=== PATIENT | male | born 2000 | race Caucasian/White ===

== ENCOUNTER 2024-04-20 00:36 | Inpatient (IN) | payer OTHER, SELFPAY ==
--- NOTE | 2024-04-20 | ECG_ITS ---
Test Reason : QTC prolongation Blood Pressure : / mmHG Vent. Rate : 089 BPM Atrial Rate : 089 BPM P-R Int : 154 ms QRS Dur : 094 ms QT Int : 372 ms P-R-T Axes : 040 -12 004 degrees QTc Int : 452 ms Normal sinus rhythm Normal ECG No previous ECGs available Referred By: Michell Salazar Electronically Signed By:Guanakito Mares
[2024-04-20] MEDS: traZODone HCL 50 MG TABLET 150 MG PO (03:26)
[2024-04-20 03:44] VITALS: BP 130/82; PULSE 82; RESP 18; TEMP 37; O2SAT 97; BMI 54.9
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
[2024-04-20 08:50] VITALS: BP 121/65; PULSE 70; RESP 20; TEMP 36.9; O2SAT 98
[2024-04-20] MEDS: Fluticasone Propionate 100 MCG BLST.W.DEV 1 PUFF INHALE (08:50)
[2024-04-20] MEDS: Dextroamphetamine/Amphetamine XR 10 MG CAP.ER.24H 30 MG PO (08:51)
[2024-04-20] MEDS: chlorproMAZINE HCl 25 MG TABLET 75 MG PO (08:52)
[2024-04-20] MEDS: Gabapentin 400 MG CAPSULE 800 MG PO ×3 (08:53→21:45)
[2024-04-20] MEDS: Docusate Sodium 100 MG CAPSULE PO ×2 (08:53→21:45)
[2024-04-20] MEDS: Aspirin 81 MG TAB.CHEW PO (08:54)
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
[2024-04-20 09:43] LABS: Estimated Average Glucose 103 mg/dL; Hemoglobin A1C 125.8236 umol/L; Hemoglobin A1c % 5.2 % (<6.0)
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
[2024-04-20 20:00] VITALS: BP 126/66; PULSE 71; RESP 18; TEMP 36.9; O2SAT 99
[2024-04-20] MEDS: Acetaminophen 325 MG TABLET 650 MG PO (23:38)
--- NOTE | 2024-04-20 23:53 | PC.NURSE ---
Pt refuses hs Thorazine and feels it may have been too sedating. Pt also refused trazodone 150mg tonight as she felt that could have been too sedating last night. She is trying to figure out which was contributing to her inability to stay awake today.
[2024-04-21 07:39] VITALS: BP 106/46; PULSE 69; RESP 18; TEMP 36.7; O2SAT 98
[2024-04-21] MEDS: Gabapentin 400 MG CAPSULE 800 MG PO ×3 (08:36→21:27)
[2024-04-21] MEDS: Docusate Sodium 100 MG CAPSULE PO ×2 (08:36→21:28)
[2024-04-21] MEDS: Aspirin 81 MG TAB.CHEW PO (08:37)
[2024-04-21] MEDS: Dextroamphetamine/Amphetamine XR 10 MG CAP.ER.24H 30 MG PO (08:37)
[2024-04-21 08:42] VITALS: BP 132/86; PULSE 72; O2SAT 95
[2024-04-21 09:06] LABS: MANUAL DIFF FLAG NO
[2024-04-21] MEDS: Albuterol Sulfate 90 MCG 8 GM INHALER 2 PUFF INHALE (09:10)
[2024-04-21 09:12] LABS: Basophils Percent Auto 0.3 % (0-2); Eosinophils Absolute Auto 0.3 X10*3/uL (0.0-0.4); Eosinophils Percent Auto 2.9 % (0-4); Hematocrit 42.2 % (42.0-52.0); Hemoglobin 14.4 g/dl (14.0-18.0); Imm Gran Abs Auto 0.04 X10*3/uL (0.00-0.03); Imm Gran Pct Auto 0.5 % (0.0-0.4); Lymphocytes Absolute Auto 2.5 X10*3/uL (1.2-4.9); Lymphocytes Percent Auto 28.5 % (20-40); Mean Corpuscular HGB Conc 34.1 g/dl (31.0-36.0); Mean Corpuscular Hemoglobin 29.5 pg (27.0-33.0); Mean Corpuscular Volume 86.5 fL (80.0-98.0); Mean Platelet Volume 9.1 fL (9.4-12.4); Monocytes Absolute Auto 0.6 X10*3/uL (0.1-1.2); Monocytes Percent Auto 6.3 % (2-11); Neutrophils Absolute Auto 5.4 x10*3/uL (2.0-8.3); Neutrophils Percent Auto 61.5 % (45-73); Platelet Count 292 X10*3/uL (160-400); Red Blood Count 4.88 X10*6/uL (4.60-5.80); Red Cell Distribution Width 12.7 % (11.0-16.0); White Blood Count 8.7 X10*3/uL (4.8-10.8)
[2024-04-21 09:31] LABS: Alanine Aminotransferase 32 U/L (0-40); Albumin Level 3.5 g/dL (3.5-5.0); Alkaline Phosphatase 51 U/L (39-117); Anion Gap 11 (12-20); Aspartate Amino Transferase 18 U/L (5-37); Bilirubin Direct < 0.2 mg/dL (0.0-0.5); Bilirubin Total 0.2 mg/dL (0.0-1.0); Blood Urea Nitrogen 11 mg/dL (9-16); Calcium 8.7 mg/dL (8.4-10.2); Carbon Dioxide 24 mmol/L (22-29); Chloride 105 mmol/L (96-108); Cholesterol 146 mg/dL (<200); Creatinine Clr Calc Pharmacy 271.1; Estimated Glomerular Filt Rate > 60; Glucose Fasting 152 mg/dL (60-99); HDL Cholesterol 36 mg/dL (>40); LDL Cholesterol Calculated 93 mg/dL (<100); Magnesium 1.8 mg/dL (1.6-2.6); Potassium 4.1 mmol/L (3.3-5.1); Sodium 136 mmol/L (135-145); Triglycerides 85 mg/dL (<150)
[2024-04-21 09:46] LABS: Free T4 (Free Thyroxine) 0.94 ng/dL (0.71-1.85); Thyroid Stimulating Hormone 1.98 uIU/mL (0.32-4.0)
[2024-04-21 11:15] LABS: Folate 5.8 ng/mL (> or = 4.0); Vitamin B12 527 pg/mL (200-900)
[2024-04-21] MEDS: Cariprazine HCl 1.5 MG CAPSULE PO (13:11)
--- NOTE | 2024-04-21 15:56 | P.PNPSI_ITS ---
Subjective Subjective Date of Service: 04/21/24 Reason For Visit: Adj disorder, w/mixed anxiety and depressed mood. Interim History: Met with patient. Says her mood is lousy . She was seen in her room doing art and writing rap songs about my trauma and real life not girls and gangs. She says she did best when It's sad but I did the best when I was at [facility] and [facility]. She was there age 20. After that she discharged against recommendations. Last year was very difficult with the of her child, her child's baby momoriana , her mother and those anniversaries are very difficult for her. She went to [facility] for 6 months August 2023 to December 2023. Since then has tried suicide multiple times. She reports she was sedated yesterday and doesn't want Thorazine because it's too sedating. We agreed to at least have it as PRN. Discussed Vraylar. Reports extensive medication trials. Review of Systems Review of Systems Patient has no acute medical complaints at this time Mental Status Exam Mental Status Exam Patient Appearance: Fatigued, Appropriate and Unkempt Level of Consciousness: Awake, Drowsy and Lethargic Patient Behavior: Guarded, Passive, Avoidant and Poor Eye Contact Mood Description: Calm, Apathetic and Depressed Affect Description: Depressed Patient Cognition Impaired: No Ability to Follow Directions: Fair Speech Pattern: Clear Memory Description: Intact Thought Content: positive for Intact and positive for Preoccupation Judgement: Fair Diagnostics Vital Signs (24Hr): Vital Signs - 24 hr 04/20/24 20:00 04/21/24 07:39 04/21/24 08:42 Temperature 98.4 F 98.1 F Pulse Rate 71 69 72 Respiratory Rate 18 18 Blood Pressure 126/66 106/46 L 132/86 Pulse Oximetry 99 98 95 Oxygen Delivery Method Room Air Room Air Room Air BMI result Body Mass Index 54.9 Labs 04/21/24 08:52 04/21/24 08:52 Labs: Laboratory Results - last 48 hr 04/20/24 04/21/24 08:46 08:52 WBC 8.7 RBC 4.88 Hgb 14.4 Hct 42.2 MCV 86.5 MCH 29.5 MCHC 34.1 RDW 12.7 Plt Count 292 MPV 9.1 L Immature Gran % (Auto) 0.5 H Neut % (Auto) 61.5 Lymph % (Auto) 28.5 [place] % (Auto) 6.3 Eos % (Auto) 2.9 Baso % (Auto) 0.3 Lymph # (Auto) 2.5 [place] # (Auto) 0.6 Eos # (Auto) 0.3 Baso # (Auto) 0.0 Abs Immat Gran (auto) 0.04 H Absolute Neuts (auto) 5.4 Absolute Nucleated RBC 0.000 Nucleated RBC % (auto) 0.0 Sodium 136 Potassium 4.1 Chloride 105 Carbon Dioxide 24 Anion Gap 11 L BUN 11 Creatinine 0.67 Estim Creat Clear Calc 271.1 Estimated GFR > 60 Fasting Glucose 152 H Estimat Average Glucose 103 Hemoglobin A1c % 5.2 Calcium 8.7 Magnesium 1.8 Total Bilirubin 0.2 Direct Bilirubin < 0.2 AST 18 ALT 32 Alkaline Phosphatase 51 Total Protein 7.0 Albumin 3.5 Triglycerides 85 Cholesterol 146 LDL Cholesterol, Calc 93 HDL Cholesterol 36 L Vitamin B12 527 Folate 5.8 TSH 1.98 Free T4 0.94 Medications Medications Current Medications Acetaminophen (Acetaminophen 325 Mg Tablet) 650 mg PO Q6H PRN PRN Reason: Headache/Pain Mild Scale (1-3) Last Admin: 04/20/24 23:38 Dose: 650 mg Al Hydroxide/Mg Hydroxide (Magnesium Hydrox/Alum Hydrox 30 Ml Oral.Susp) 30 ml PO Q6H PRN PRN Reason: Heartburn/Nausea Albuterol Sulfate (Albuterol Sulfate 90 Mcg 8 Gm Inhaler) 2 puff INHALE RQ6H PRN PRN Reason: Wheezing Last Admin: 04/21/24 09:10 Dose: 2 puff Amphetamine/Dextroamphetamine (Dextroamphetamine/Amphetamine Xr 10 Mg Cap.Er.24h) 30 mg PO DAILY [facility] Last Admin: 04/21/24 08:37 Dose: 30 mg Aspirin (Aspirin 81 Mg Tab.Chew) 81 mg PO DAILY [facility] Last Admin: 04/21/24 08:37 Dose: 81 mg Buprenorphine/Naloxone (Buprenorphine/Naloxone 8/2 Mg Film) 2 film SUBLINGUAL DAILY [facility] Last Admin: 04/21/24 08:38 Dose: Not Given Cariprazine (Cariprazine Hcl 1.5 Mg Capsule) 1.5 mg PO DAILY [facility] Last Admin: 04/21/24 13:11 Dose: 1.5 mg Chlorpromazine HCl (Chlorpromazine Hcl 25 Mg Tablet) 75 mg PO TID PRN PRN Reason: agitation Docusate Sodium (Docusate Sodium 100 Mg Capsule) 100 mg PO BID [facility] Last Admin: 04/21/24 08:36 Dose: 100 mg Fluticasone Propionate (Fluticasone Propionate 100 Mcg Blst.W.Dev) 1 puff INHALE DAILY [facility] Last Admin: 04/21/24 08:39 Dose: Not Given Gabapentin (Gabapentin 400 Mg Capsule) 800 mg PO TID [facility] Last Admin: 04/21/24 15:09 Dose: 800 mg Hydroxyzine HCl (Hydroxyzine Hcl 25 Mg Tablet) 25 mg PO Q6H PRN PRN Reason: Anxiety Magnesium Hydroxide (Milk Of Magnesia 30 Ml Oral.Susp) 30 ml PO DAILY PRN PRN Reason: Constipation Nicotine Polacrilex (Nicotine Polacrilex Lozenge 2 Mg Lozenge) 2 mg BUCCAL Q2H PRN PRN Reason: Nicotine Cravings Trazodone HCl (Trazodone Hcl 50 Mg Tablet) 150 mg PO BEDTIME MRX1 PRN PRN Reason: Insomnia Allergies Allergies Allergy/AdvReac Type Severity Reaction Status Date / Time No Known Allergies Allergy Verified 04/20/24 00:55 Assessment & Plan Assessment & Plan (1) PTSD (post-traumatic stress disorder): Status: Acute Code(s): F43.10 - Post-traumatic stress disorder, unspecified (2) Depression, major, severe recurrence: Status: Acute Code(s): F33.2 - Major depressive disorder, recurrent severe without psychotic features (3) Borderline personality disorder: Status: Acute Code(s): F60.3 - Borderline personality disorder (4) [id number]-[id number] transgender person: Status: Acute Code(s): Z78.9 - Other specified health status Plan - Admit to inpatient psychiatry - CV - Collateral information from family and providers. - Milieu treatment and group therapy. - Medications: Continue OP medications. - Social work evaluation. - Disposition planning. 04/21: Hold Suboxone and make Thorazine PRN agitation.Start Vraylar 1.5 mg daily. Reason for continued inpatient stay Substantial Risk for: harm to self and rapid decompensation Time Spent With Patient Time: Total time managing care of this patient today ____ minutes.
[2024-04-21 20:00] VITALS: BP 127/90; PULSE 97; RESP 16; TEMP 36.8; O2SAT 98
[2024-04-21] MEDS: Melatonin 3 MG TABLET 6 MG PO (21:26)
[2024-04-21] MEDS: hydrOXYzine HCL 25 MG TABLET PO (21:28)
[2024-04-22 08:00] VITALS: BP 133/71; PULSE 75; RESP 14; TEMP 36.6; O2SAT 98
[2024-04-22] MEDS: Aspirin 81 MG TAB.CHEW PO (08:24)
[2024-04-22] MEDS: Gabapentin 400 MG CAPSULE 800 MG PO ×3 (08:25→20:48)
[2024-04-22] MEDS: Cariprazine HCl 1.5 MG CAPSULE PO (08:25)
[2024-04-22] MEDS: Dextroamphetamine/Amphetamine XR 10 MG CAP.ER.24H 30 MG PO (08:26)
[2024-04-22] MEDS: Docusate Sodium 100 MG CAPSULE PO ×2 (08:26→20:49)
--- NOTE | 2024-04-22 10:49 | P.PNPSI_ITS ---
Subjective Subjective Date of Service: 04/22/24 Reason For Visit: Adj disorder, w/mixed anxiety and depressed mood. Interim History: Met with patient. Says her mood is irritated . She was doing art in the common area and appeared irritable. She had had urinary incontinence overnight which is a chronic problem. She is pessimistic about the Vraylar working to help her mood. She denies active SI. She draws well. From 04/21/24: She was seen in her room doing art and writing rap songs about my trauma and real life not girls and gangs. She says she did best when It's sad but I did the best when I was at [facility]. She was there age 20. After that she discharged against recommendations. Last year was very difficult with the of her child, her child's baby momoriana , her mother and those anniversaries are very difficult for her. She went to custodial for 6 months August 2023 to December 2023. Since then has tried suicide multiple times. She reports she was sedated yesterday and doesn't want Thorazine because it's too sedating. We agreed to at least have it as PRN. Discussed Vraylar. Reports extensive medication trials Medication Compliance: Yes Review of Systems Review of Systems Patient has no acute medical complaints at this time Mental Status Exam Mental Status Exam Patient Appearance: Fatigued, Appropriate and Unkempt Level of Consciousness: Awake, Drowsy and Lethargic Patient Behavior: Guarded, Passive, Avoidant and Poor Eye Contact Mood Description: Calm, Apathetic and Depressed Affect Description: Depressed Patient Cognition Impaired: No Ability to Follow Directions: Fair Speech Pattern: Clear Memory Description: Intact Diagnostics Vital Signs (24Hr): Vital Signs - 24 hr 04/21/24 20:00 04/22/24 08:00 Temperature 98.3 F 97.9 F Pulse Rate 97 75 Respiratory Rate 16 14 Blood Pressure 127/90 H 133/71 Pulse Oximetry 98 98 Oxygen Delivery Method Room Air Room Air BMI result Body Mass Index 54.9 Labs 04/21/24 08:52 04/21/24 08:52 Labs: Laboratory Results - last 48 hr 04/21/24 08:52 WBC 8.7 RBC 4.88 Hgb 14.4 Hct 42.2 MCV 86.5 MCH 29.5 MCHC 34.1 RDW 12.7 Plt Count 292 MPV 9.1 L Immature Gran % (Auto) 0.5 H Neut % (Auto) 61.5 Lymph % (Auto) 28.5 [place] % (Auto) 6.3 Eos % (Auto) 2.9 Baso % (Auto) 0.3 Lymph # (Auto) 2.5 [place] # (Auto) 0.6 Eos # (Auto) 0.3 Baso # (Auto) 0.0 Abs Immat Gran (auto) 0.04 H Absolute Neuts (auto) 5.4 Absolute Nucleated RBC 0.000 Nucleated RBC % (auto) 0.0 Sodium 136 Potassium 4.1 Chloride 105 Carbon Dioxide 24 Anion Gap 11 L BUN 11 Creatinine 0.67 Estim Creat Clear Calc 271.1 Estimated GFR > 60 Fasting Glucose 152 H Calcium 8.7 Magnesium 1.8 Total Bilirubin 0.2 Direct Bilirubin < 0.2 AST 18 ALT 32 Alkaline Phosphatase 51 Total Protein 7.0 Albumin 3.5 Triglycerides 85 Cholesterol 146 LDL Cholesterol, Calc 93 HDL Cholesterol 36 L Vitamin B12 527 Folate 5.8 TSH 1.98 Free T4 0.94 Medications Medications Current Medications Acetaminophen (Acetaminophen 325 Mg Tablet) 650 mg PO Q6H PRN PRN Reason: Headache/Pain Mild Scale (1-3) Last Admin: 04/20/24 23:38 Dose: 650 mg Al Hydroxide/Mg Hydroxide (Magnesium Hydrox/Alum Hydrox 30 Ml Oral.Susp) 30 ml PO Q6H PRN PRN Reason: Heartburn/Nausea Albuterol Sulfate (Albuterol Sulfate 90 Mcg 8 Gm Inhaler) 2 puff INHALE RQ6H PRN PRN Reason: Wheezing Last Admin: 04/21/24 09:10 Dose: 2 puff Amphetamine/Dextroamphetamine (Dextroamphetamine/Amphetamine Xr 10 Mg Cap.Er.24h) 30 mg PO DAILY [facility] Last Admin: 04/22/24 08:26 Dose: 30 mg Aspirin (Aspirin 81 Mg Tab.Chew) 81 mg PO DAILY [facility] Last Admin: 04/22/24 08:24 Dose: 81 mg Buprenorphine/Naloxone (Buprenorphine/Naloxone 8/2 Mg Film) 2 film SUBLINGUAL DAILY [facility] Last Admin: 04/21/24 08:38 Dose: Not Given Cariprazine (Cariprazine Hcl 1.5 Mg Capsule) 1.5 mg PO DAILY [facility] Last Admin: 04/22/24 08:25 Dose: 1.5 mg Chlorpromazine HCl (Chlorpromazine Hcl 25 Mg Tablet) 75 mg PO TID PRN PRN Reason: agitation Docusate Sodium (Docusate Sodium 100 Mg Capsule) 100 mg PO BID [facility] Last Admin: 04/22/24 08:26 Dose: 100 mg Fluticasone Propionate (Fluticasone Propionate 100 Mcg Blst.W.Dev) 1 puff INHALE DAILY [facility] Last Admin: 04/22/24 08:27 Dose: Not Given Gabapentin (Gabapentin 400 Mg Capsule) 800 mg PO TID [facility] Last Admin: 04/22/24 08:25 Dose: 800 mg Hydroxyzine HCl (Hydroxyzine Hcl 25 Mg Tablet) 25 mg PO Q6H PRN PRN Reason: Anxiety Last Admin: 04/21/24 21:28 Dose: 25 mg Magnesium Hydroxide (Milk Of Magnesia 30 Ml Oral.Susp) 30 ml PO DAILY PRN PRN Reason: Constipation Melatonin (Melatonin 3 Mg Tablet) 6 mg PO BEDTIME PRN PRN Reason: Insomnia Last Admin: 04/21/24 21:26 Dose: 6 mg Nicotine Polacrilex (Nicotine Polacrilex Lozenge 2 Mg Lozenge) 2 mg BUCCAL Q2H PRN PRN Reason: Nicotine Cravings Trazodone HCl (Trazodone Hcl 50 Mg Tablet) 150 mg PO BEDTIME MRX1 PRN PRN Reason: Insomnia Allergies Allergies Allergy/AdvReac Type Severity Reaction Status Date / Time No Known Allergies Allergy Verified 04/20/24 00:55 Assessment & Plan Assessment & Plan (1) PTSD (post-traumatic stress disorder): Status: Acute Code(s): F43.10 - Post-traumatic stress disorder, unspecified (2) Depression, major, severe recurrence: Status: Acute Code(s): F33.2 - Major depressive disorder, recurrent severe without psychotic features (3) Borderline personality disorder: Status: Acute Code(s): F60.3 - Borderline personality disorder (4) Uylq-pt-upwbbv transgender person: Status: Acute Code(s): Z78.9 - Other specified health status Plan - Admit to inpatient psychiatry - CV - Collateral information from family and providers. - Milieu treatment and group therapy. - Medications: Continue OP medications. - Social work evaluation. - Disposition planning. 04/21: Hold Suboxone and make Thorazine PRN agitation.Start Vraylar 1.5 mg daily. 04/22: Monitor response to Vraylar. Otherwise continue current management and treatment plan. Reason for continued inpatient stay Substantial Risk for: harm to self, harm to others, inability to function and rapid decompensation Time Spent With Patient Time: Total time managing care of this patient today ____ minutes.
[2024-04-22 19:55] VITALS: BP 138/67; PULSE 97; RESP 16; TEMP 36.9; O2SAT 99
[2024-04-22] MEDS: Melatonin 3 MG TABLET 6 MG PO (20:48)
[2024-04-22] MEDS: hydrOXYzine HCL 25 MG TABLET PO (20:49)
[2024-04-22] MEDS: traZODone HCL 50 MG TABLET PO (20:56)
[2024-04-23] MEDS: Magnesium Hydrox/Alum Hydrox 30 ML ORAL.SUSP PO (01:42)
[2024-04-23 07:20] VITALS: BP 117/56; PULSE 75; RESP 18; TEMP 36.8; O2SAT 95
[2024-04-23] MEDS: Fluticasone Propionate 100 MCG BLST.W.DEV 1 PUFF INHALE (09:45)
[2024-04-23] MEDS: Gabapentin 400 MG CAPSULE 800 MG PO (09:46)
[2024-04-23] MEDS: Docusate Sodium 100 MG CAPSULE PO ×2 (09:46→21:51)
[2024-04-23] MEDS: Dextroamphetamine/Amphetamine XR 10 MG CAP.ER.24H 30 MG PO (09:46)
[2024-04-23] MEDS: Aspirin 81 MG TAB.CHEW PO (09:46)
[2024-04-23] MEDS: Cariprazine HCl 1.5 MG CAPSULE PO (09:46)
[2024-04-23] MEDS: Gabapentin 600 MG TABLET 1200 MG PO (16:16)
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
[2024-04-23 19:45] VITALS: BP 133/67; PULSE 92; RESP 18; TEMP 36.9; O2SAT 97
[2024-04-23] MEDS: Gabapentin 400 MG CAPSULE 1200 MG PO (21:51)
[2024-04-24 07:00] VITALS: BP 117/59; PULSE 87; RESP 24; TEMP 37.1; O2SAT 95
[2024-04-24 08:00] VITALS: BP 117/59; PULSE 87; RESP 24; TEMP 37.1; O2SAT 95
[2024-04-24] MEDS: Fluticasone Propionate 100 MCG BLST.W.DEV 1 PUFF INHALE (08:07)
[2024-04-24] MEDS: Docusate Sodium 100 MG CAPSULE PO ×2 (08:08→20:36)
[2024-04-24] MEDS: Gabapentin 400 MG CAPSULE 1200 MG PO ×3 (08:08→20:35)
[2024-04-24] MEDS: Dextroamphetamine/Amphetamine XR 10 MG CAP.ER.24H 30 MG PO (08:08)
[2024-04-24] MEDS: Aspirin 81 MG TAB.CHEW PO (08:08)
--- NOTE | 2024-04-24 14:39 | P.PNPSI_ITS ---
Subjective Subjective Date of Service: 04/24/24 Reason For Visit: Adj disorder, w/mixed anxiety and depressed mood. Interim History: calm, cooperative. no longer feeling ECT is a good option. asking to come off 1:1, saying night staff overreacted. now [place] [facility]. or resp[facility]. will work with HAYLEY Todd on the case and hoping to go soon. targets of SIS, self-harm, self-sabotage. per staff, on 1:1 for threat to self. Mental Status Exam Mental Status Exam Narrative: obese, adequately dressed and groomed. cooperative. no PMA/PMR. speech nml rate, amount, loudness, tone, latency. thoughts linear and logical without delusions or paranoia. affect constricted, normo-intense, non-labile. mood depressed. +SI, chronic. no HI/AVH expressed. Diagnostics Vital Signs (24Hr): Vital Signs - 24 hr 04/23/24 19:45 04/24/24 07:00 04/24/24 08:00 Temperature 98.5 F 98.8 F 98.8 F Pulse Rate 92 87 87 Respiratory Rate 18 24 H 24 H Blood Pressure 133/67 117/59 L 117/59 L Pulse Oximetry 97 95 95 Oxygen Delivery Method Room Air Room Air Room Air BMI result Body Mass Index 54.9 Labs 04/21/24 08:52 04/21/24 08:52 Medications Medications Current Medications Acetaminophen (Acetaminophen 325 Mg Tablet) 650 mg PO Q6H PRN PRN Reason: Headache/Pain Mild Scale (1-3) Last Admin: 04/20/24 23:38 Dose: 650 mg Al Hydroxide/Mg Hydroxide (Magnesium Hydrox/Alum Hydrox 30 Ml Oral.Susp) 30 ml PO Q6H PRN PRN Reason: Heartburn/Nausea Last Admin: 04/23/24 01:42 Dose: 30 ml Albuterol Sulfate (Albuterol Sulfate 90 Mcg 8 Gm Inhaler) 2 puff INHALE RQ6H PRN PRN Reason: Wheezing Last Admin: 04/21/24 09:10 Dose: 2 puff Amphetamine/Dextroamphetamine (Dextroamphetamine/Amphetamine Xr 10 Mg Cap.Er.24h) 30 mg PO DAILY [facility] Last Admin: 04/24/24 08:08 Dose: 30 mg Aspirin (Aspirin 81 Mg Tab.Chew) 81 mg PO DAILY [facility] Last Admin: 04/24/24 08:08 Dose: 81 mg Docusate Sodium (Docusate Sodium 100 Mg Capsule) 100 mg PO BID [facility] Last Admin: 04/24/24 08:08 Dose: 100 mg Fluticasone Propionate (Fluticasone Propionate 100 Mcg Blst.W.Dev) 1 puff INHALE DAILY [facility] Last Admin: 04/24/24 08:07 Dose: 1 puff Gabapentin (Gabapentin 400 Mg Capsule) 1,200 mg PO TID [facility] Last Admin: 04/24/24 08:08 Dose: 1,200 mg Hydroxyzine HCl (Hydroxyzine Hcl 25 Mg Tablet) 25 mg PO Q6H PRN PRN Reason: Anxiety Last Admin: 04/22/24 20:49 Dose: 25 mg Magnesium Hydroxide (Milk Of Magnesia 30 Ml Oral.Susp) 30 ml PO DAILY PRN PRN Reason: Constipation Melatonin (Melatonin 3 Mg Tablet) 6 mg PO BEDTIME PRN PRN Reason: Insomnia Last Admin: 04/22/24 20:48 Dose: 6 mg Nicotine Polacrilex (Nicotine Polacrilex Lozenge 2 Mg Lozenge) 2 mg BUCCAL Q2H PRN PRN Reason: Nicotine Cravings Trazodone HCl (Trazodone Hcl 50 Mg Tablet) 50 mg PO BEDTIME MRX1 PRN PRN Reason: Insomnia Last Admin: 04/22/24 20:56 Dose: 50 mg Allergies Allergies Allergy/AdvReac Type Severity Reaction Status Date / Time No Known Allergies Allergy Verified 04/20/24 00:55 Assessment & Plan Assessment & Plan (1) PTSD (post-traumatic stress disorder): Status: Acute Code(s): F43.10 - Post-traumatic stress disorder, unspecified (2) Depression, major, severe recurrence: Status: Acute Code(s): F33.2 - Major depressive disorder, recurrent severe without psychotic features (3) Borderline personality disorder: Status: Acute Code(s): F60.3 - Borderline personality disorder (4) Khpn-fr-dgyebd transgender person: Status: Acute Code(s): Z78.9 - Other specified health status Plan - Admit to inpatient psychiatry - CV - Collateral information from family and providers. - Milieu treatment and group therapy. - Medications: Continue OP medications. - Social work evaluation. - Disposition planning. 04/21: Hold Suboxone and make Thorazine PRN agitation.Start Vraylar 1.5 mg daily. 04/22: Monitor response to Vraylar. Otherwise continue current management and treatment plan. 04/23: pt requests D/C of suboxone, thorazine, vraylar, which is done. says meds not effective. however asks for gabapentin to be increased for neuropathic pain, which is agreed to, to 3600 mg daily. asking for ECT trial. will provide list of med trials tomorrow. revoked 3-day notice. 04/24: states in reconsideration that ECT is not helpful for BPD Sx, she declines to pursue. interested in housing, knows this will need to be pursued outpt, [place] [facility] [place]. DC 1:1, change to Q5 min checks. Reason for continued inpatient stay Substantial Risk for: harm to self, inability to function and rapid decompensation Time Spent With Patient Time: Total time managing care of this patient today __25__ minutes.
[2024-04-24 20:05] VITALS: BP 128/63; PULSE 94; RESP 18; TEMP 36.6; O2SAT 98
[2024-04-24] MEDS: traZODone HCL 50 MG TABLET PO (23:09)
[2024-04-24] MEDS: Melatonin 3 MG TABLET 6 MG PO (23:09)
[2024-04-25 07:00] VITALS: BMI 56.1
[2024-04-25 07:34] VITALS: BP 114/59; PULSE 77; RESP 16; TEMP 36.8; O2SAT 98
[2024-04-25] MEDS: Gabapentin 400 MG CAPSULE 1200 MG PO (08:26)
[2024-04-25] MEDS: Docusate Sodium 100 MG CAPSULE PO (08:26)
[2024-04-25] MEDS: Fluticasone Propionate 100 MCG BLST.W.DEV 1 PUFF INHALE (08:26)
[2024-04-25] MEDS: Dextroamphetamine/Amphetamine XR 10 MG CAP.ER.24H 30 MG PO (08:26)
[2024-04-25] MEDS: Aspirin 81 MG TAB.CHEW PO (08:27)
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
== END 2024-04-25 10:30 | disposition home or self-care (01) | DRG 751 ==
PROVIDERS: Clinical Nurse Specialist Psychiatric/Mental Health; Admitting Provider Psychiatry & Neurology Psychiatry; Visit Provider Psychiatry & Neurology Psychiatry
DX: F33.2 Major depressive disorder, recurrent severe without psychotic features (principal); R45.851 Suicidal ideations; F43.10 Post-traumatic stress disorder, unspecified; F60.3 Borderline personality disorder; G47.33 Obstructive sleep apnea (adult) (pediatric); F64.0 Transsexualism; Z59.02 Unsheltered homelessness; Z91.51 Personal history of suicidal behavior; Z87.891 Personal history of nicotine dependence; Z79.899 Other long term (current) drug therapy
CPT/HCPCS: 36415; 80053; 80061; 80076; 82607; 82746; 83036; 83735; 84439; 84443; 85025; 87086; 93005

== ENCOUNTER 2024-04-20 00:36 | Outpatient (BNV) | payer MEDICAID, SELFPAY | END 2024-04-20 10:21 | PROVIDERS: Admitting Provider Psychiatry & Neurology Psychiatry; Visit Provider Internal Medicine Cardiovascular Disease | DX: I45.81 Long QT syndrome (principal) | CPT/HCPCS: 93010 ==

== ENCOUNTER → 2024-04-20 00:36 | Outpatient (BNV) | payer OTHER, SELFPAY | PROVIDERS: Admitting Provider Psychiatry & Neurology Psychiatry; Visit Provider Psychiatry & Neurology Psychiatry | DX: F60.3 Borderline personality disorder (principal); F33.2 Major depressive disorder, recurrent severe without psychotic features; F43.11 Post-traumatic stress disorder, acute; F64.0 Transsexualism | CPT/HCPCS: 99231; 99232 ==

== ENCOUNTER → 2024-04-20 00:36 | Outpatient (BNV) | payer MEDICAID, SELFPAY | PROVIDERS: Admitting Provider Psychiatry & Neurology Psychiatry; Visit Provider Student in an Organized Health Care Education/Training Program | DX: Z00.8 Encounter for other general examination (principal) | CPT/HCPCS: 99222 ==

== ENCOUNTER 2025-04-07 20:44 | Emergency (ER) | payer MEDICAID, SELFPAY ==
[2025-04-07 20:46] VITALS: BP 146/95; PULSE 92; RESP 18; TEMP 36.6; O2SAT 99; BMI 55.4
--- NOTE | 2025-04-07 20:47 | ED.GENADULT ---
HPI - General Adult General Chief complaint: Abdominal Pain Stated complaint: Abdominal pain Related Data Previous Rx's ?Medication ?Instructions ?Recorded albuterol sulfate 90 mcg/actuation 2 puff inhalation Q6H PRN wheezing 04/25/24 aerosol inhaler (Ventolin HFA) 30 days #1 inhaler aspirin 81 mg chewable tablet 1 tab PO DAILY 30 days #30 tabs 04/25/24 dextroamphetamine-amphetamine ER 1 cap PO DAILY 30 days #30 caps 04/25/24 30 mg 24hr capsule,extend release (Adderall XR) docusate sodium 100 mg capsule 100 mg PO BID indigestion 30 days 04/25/24 #60 caps fluticasone propionate 100 1 inh inhalation BID 30 days #1 ea 04/25/24 mcg/actuation blister powder for inhalation gabapentin 400 mg capsule 1,200 mg (3 x 400 mg) PO TID 30 04/25/24 days #270 caps melatonin 3 mg tablet 6 mg (2 x 3 mg) PO BEDTIME PRN 04/25/24 Insomnia 30 days #60 tabs trazodone 50 mg tablet 50 mg PO BEDTIME MRX1 PRN Insomnia 04/25/24 30 days #60 tabs Allergies Allergy/AdvReac Type Severity Reaction Status Date / Time No Known Allergies Allergy Verified 04/07/25 20:47 [facility] Past Medical History Medical History (Updated 04/10/25 @ 11:08 by Miky Schmitz) Medical clearance for psychiatric admission Asthma MIRA (obstructive sleep apnea) Social History Social History Household Members: None Housing: Homeless Do you presently have visiting nurse or other home services: No Patient Tobacco Use Status: Former Tobacco user Years Smoked: 3 e-Cigarette/Vaping Use: Currently Using Second Hand Smoke Exposure: No Advance Directives: No Advance Directives Information Provided: No Do you have a plan to hurt others: No Plan service: No Sexual orientation: Bisexual Physical Exam ED Vital Signs: BMI result Body Mass Index 55.4 Course Course Course Narrative: RME, this is a rapid medical exam performed by Armani Schmitz please refer to primary provider for complete H&P- 24-year-old male who identifies as female presents for evaluation of abdominal pain, nausea and vomiting. Plan for labs, urinalysis. Will defer any potential advanced imaging to primary ER provider Medical Decision Making Lab Data 04/07/25 20:53 04/07/25 20:53 Labs: Lab Results 04/07/25 Range/Units 20:53 WBC 14.2 H (4.8-10.8) X10*3/uL RBC 5.09 (4.60-5.80) X10*6/uL Hgb 14.8 (14.0-18.0) g/dl Hct 43.0 (42.0-52.0) % MCV 84.5 (80.0-98.0) fL MCH 29.1 (27.0-33.0) pg MCHC 34.4 (31.0-36.0) g/dl RDW 13.2 (11.0-16.0) % Plt Count 409 H D (160-400) X10*3/uL MPV 8.5 L (9.4-12.4) fL Immature Gran % (Auto) 0.6 H (0.0-0.4) % Neut % (Auto) 66.4 (45-73) % Lymph % (Auto) 23.2 (20-40) % Kendall % (Auto) 6.6 (2-11) % Eos % (Auto) 2.8 (0-4) % Baso % (Auto) 0.4 (0-2) % Lymph # (Auto) 3.3 (1.2-4.9) X10*3/uL Kendall # (Auto) 0.9 (0.1-1.2) X10*3/uL Eos # (Auto) 0.4 (0.0-0.4) X10*3/uL Baso # (Auto) 0.1 (0.0-0.2) X10*3/uL Abs Immat Gran (auto) 0.08 H (0.00-0.03) X10*3/uL Absolute Neuts (auto) 9.4 H (2.0-8.3) x10*3/uL Absolute Nucleated RBC 0.000 (0.0-0.012) X10*3/uL Nucleated RBC % (auto) 0.0 (0.0-0.2) /100WBC Sodium 136 (135-145) mmol/L Potassium 3.8 (3.3-5.1) mmol/L Chloride 106 (96-108) mmol/L Carbon Dioxide 23 (22-29) mmol/L Anion Gap 11 L (12-20) BUN 14 (9-16) mg/dL Creatinine 0.71 (0.5-1.4) mg/dL Estim Creat Clear Calc 254.9 Estimated GFR > 60 Random Glucose 109 (60-115) mg/dL Calcium 9.1 (8.4-10.2) mg/dL Total Bilirubin 0.3 (0.0-1.0) mg/dL AST 28 (5-37) U/L ALT 39 (0-40) U/L Alkaline Phosphatase 48 (39-117) U/L Total Protein 7.8 (6.5-8.0) g/dL Albumin 3.9 (3.5-5.0) g/dL Lipase 8 (8-78) U/L Influenza Type A (PCR) NEGATIVE (Negative) Influenza Type B (PCR) NEGATIVE (Negative) RSV RNA Qual (PCR) NEGATIVE (Negative) SARS-CoV-2 RNA (RT-PCR) NEGATIVE (Negative) Discharge Plan Discharge Clinical Impression: Abdominal pain Patient Disposition: Left W/O Completing Treatment Prescriptions: No Action trazodone 50 mg Tablet 50 mg PO BEDTIME MRX1 PRN (Reason: Insomnia) 30 Days Qty: 60 0RF gabapentin 400 mg Capsule 1,200 mg PO TID 30 Days Qty: 270 0RF melatonin 3 mg Tablet 6 mg PO BEDTIME PRN (Reason: Insomnia) 30 Days Qty: 60 0RF fluticasone propionate 100 mcg/actuation Blister With Device 1 inh inhalation BID 30 Days Qty: 1 0RF docusate sodium 100 mg capsule 100 mg PO BID 30 Days Qty: 60 0RF aspirin 81 mg tablet,chewable 1 tab PO DAILY 30 Days Qty: 30 0RF albuterol sulfate [Ventolin HFA] 90 mcg/actuation HFA aerosol inhaler 2 puff inhalation Q6H PRN (Reason: wheezing) 30 Days Qty: 1 0RF dextroamphetamine-amphetamine [Adderall XR] 30 mg capsule,extended release 24hr 1 cap PO DAILY 30 Days Qty: 30 0RF Discharge Date/Time: 04/07/25 22:59
[2025-04-07 20:59] LABS: Basophils Absolute Auto 0.1 X10*3/uL (0.0-0.2); Basophils Percent Auto 0.4 % (0-2); Eosinophils Absolute Auto 0.4 X10*3/uL (0.0-0.4); Eosinophils Percent Auto 2.8 % (0-4); Hemoglobin 14.8 g/dl (14.0-18.0); Imm Gran Abs Auto 0.08 X10*3/uL (0.00-0.03); Imm Gran Pct Auto 0.6 % (0.0-0.4); Lymphocytes Absolute Auto 3.3 X10*3/uL (1.2-4.9); Lymphocytes Percent Auto 23.2 % (20-40); MANUAL DIFF FLAG NO; Mean Corpuscular HGB Conc 34.4 g/dl (31.0-36.0); Mean Corpuscular Hemoglobin 29.1 pg (27.0-33.0); Mean Corpuscular Volume 84.5 fL (80.0-98.0); Mean Platelet Volume 8.5 fL (9.4-12.4); Monocytes Absolute Auto 0.9 X10*3/uL (0.1-1.2); Monocytes Percent Auto 6.6 % (2-11); Neutrophils Absolute Auto 9.4 x10*3/uL (2.0-8.3); Neutrophils Percent Auto 66.4 % (45-73); Platelet Count 409 X10*3/uL (160-400); Red Blood Count 5.09 X10*6/uL (4.60-5.80); Red Cell Distribution Width 13.2 % (11.0-16.0); White Blood Count 14.2 X10*3/uL (4.8-10.8)
[2025-04-07 21:16] LABS: Alanine Aminotransferase 39 U/L (0-40); Albumin Level 3.9 g/dL (3.5-5.0); Alkaline Phosphatase 48 U/L (39-117); Anion Gap 11 (12-20); Aspartate Amino Transferase 28 U/L (5-37); Bilirubin Total 0.3 mg/dL (0.0-1.0); Blood Urea Nitrogen 14 mg/dL (9-16); Calcium 9.1 mg/dL (8.4-10.2); Carbon Dioxide 23 mmol/L (22-29); Chloride 106 mmol/L (96-108); Creatinine Clr Calc Pharmacy 254.9; Estimated Glomerular Filt Rate > 60; Glucose Random 109 mg/dL (60-115); Lipase 8 U/L (8-78); Potassium 3.8 mmol/L (3.3-5.1); Sodium 136 mmol/L (135-145); Total Protein 7.8 g/dL (6.5-8.0)
[2025-04-07 21:36] LABS: Influenza A PCR NEGATIVE (Negative); Influenza B PCR NEGATIVE (Negative); Resp Syncy Virus RNA Qual PCR NEGATIVE (Negative); SARS COV2 PCR INHOUSE NEGATIVE (Negative)
--- OUTSIDE RECORDS SUMMARY | 2025-04-07 22:56 | XMS_ITS | Encounter Summary ---
Author Organization [facility] Address [address] [place] [address] Care Team Providers Care Mechanical Unit Repairer Name Role Phone Ed, [facility]-Attn: Primary Care Provider Unavailable Encounter Details Date Type Department Care Team (Late st Contact Info) Description 08/17/2018 Lab Requisition [facility] [address] [place] [address] Rubens Terry MD [address] [place] [address] Encounter for screening for infections with predominantly sexual mode of transmission Social History Tobacco Use Types Packs/Day Years Used Date Smoking Tobacco: Never Smokeless Tobacco: Never Comments:: Alcohol Use Standard Drinks/Week Comments No 0 (1 standard drink = 0.6 oz pur e alcohol) Sex and Gender Information Value Date Recorded Sex Assigned at Male 12/25/2024 11:58 AM EST Legal Sex Unknown 12/25/2024 11:58 AM EST Gender Identity Not on file Sexual Orientation Not on file documented as of this encounter Plan of Treatment Not on file documented as of this encounter Procedures * Due to [place] [employer] law, this organization might not be sharing negative HIV tests. Procedure Name Priority Date/Time Associated Diagnosis Comments CHLAMYDIA/NEISSERI A GONORRHEA RNA Routine 08/17/2018 2:00 PM EDT Encounter for screening for infections with predominantly sexual mode of transmission documented in this encounter Results * Due to [place] [employer] law, this organization might not be sharing negative HIV tests. * Chlamydia/Neisseria gonorrhoeae RNA (08/17/2018 2:00 PM EDT) Chlamydia trachomatis RNA, TMA NOT DETECTED NOT DETECTED 08/18/2018 2:45 PM EDT [facility] Neisseria Gonorrhoeae RNA, TMA NOT DETECTED NOT DETECTED 08/18/2018 2:45 PM EDT [facility] Comment: This test was performed using the APTIMA COMBO2 Assay ([employer] The analytical performance characteristics of this assay, when used to test SurePath specimens have been determined by [employer]. ?? Urine specimen (specimen) Voided urine specimen / Unknown 08/17/2018 2:00 PM EDT 08/17/2018 6:14 PM EDT Narrative JANETT JEREZ - 08/18/2018 2:45 PM EDT [facility] Received Date: us Rubens Terry MD LAB URINE ORDERABLES Final Re sult [facility] [address], [place] [address], [place] [phone] [facility] [address], [place] [address], [place] [phone] documented in this encounter Visit Diagnoses Diagnosis Encounter for screening for infections with predominantly sexual mode of transmission documented in this encounter Additional Health Concerns Infection Onset Date Last Indicated Resolved Time COVID-19 - Suspected infection 12/28/2020 01/05/2021 01/05/2021 7:47 PM EST COVID-19 - Suspected infection 08/20/2023 08/20/2023 08/20/2023 3:46 PM EDT COVID-19 - Suspected infection 08/20/2023 08/20/2023 08/21/2023 12:02 AM EDT documented as of this encounter Care Teams Mechanical Unit Repairer Relationship Specialty Start Date End Date Ed, [facility]-Attn: PCP - General 12/25/24 documented as of this encounter
--- OUTSIDE RECORDS SUMMARY | 2025-04-07 22:57 | XMS_ITS | Clinical Summary ---
Author Organization [facility] Address [address] [place] [address] Phone Care Team Providers Care Weight Tester Name Role Phone JaimesRoxana jayrandolph Talbert DO Primary Care Provider [phone] Allergies No known active allergies Medications docusate sodium (COLACE) 100 MG capsule Take 100 mg by mouth 2 (two) times a day. 03/15/2024 Active fluticasone furoate (ARNUITY ELLIPTA) 100 mcg/actuation DsDv Inhale 1 puff into the lungs 2 (two) times a day as needed. 03/28/2024 Active ADDERALL 20 mg Tab tablet Take 20 mg by mouth 2 (two) times a day. 08/16/2024 Active topiramate (TOPAMAX) 25 MG tablet Take 25 mg by mouth 2 (two) times a day. 08/06/2024 08/06/20 Active gabapentin (NEURONTIN) 600 MG tablet Take 1,200 mg by mouth 3 (three) times a day. Active hydrOXYzine (ATARAX) 25 MG tablet Take 25 mg by mouth 3 (three) times a day as needed for itching. Active albuterol 90 mcg/actuation inhaler Inhale 2 puffs into the lungs every 6 (six) hours as needed for wheezing. Active ibuprofen (ADVIL,MOTRIN) 600 MG tablet Take 600 mg by mouth every 6 (six) hours as needed for pain (specific location in comments). Active dextroamphetami ne-amphetamine (ADDERALL XR) 30 MG 24 hr capsule Take 30 mg by mouth daily. Active QUEtiapine (SEROQUEL XR) 50 mg Tb24 Take 100 mg by mouth nightly at bedtime. Active QUEtiapine (SEROQUEL) 50 MG tablet Take 50 mg by mouth 2 (two) times a day as needed. Active FLUoxetine (PROZAC) 20 MG capsule Take 20 mg by mouth daily. Active ARIPiprazole (ABILIFY) 5 MG tablet Take 5 mg by mouth daily. Active Active Problems Problem Noted Date Diagnosed Date Mental health problem 08/23/2024 Suicidal ideation 04/19/2024 Encounters Date Type Department Care Team Description 01/18/2025 5:52 PM EST - 01/19/2025 9:30 AM EST Emergency [facility] [address] [place] [address] Shannan Girard MD Steinberg, MD Km Gamez, Matteo Soriano MD Discharge Disposition: Home or Self Care 01/14/2025 9:30 PM EST - 01/15/2025 4:41 PM EST Hospital Encounter [facility] [address] [place] [address] Yeni Jarrell MD Noone, Caleb J, MD Fishman, Kane Lan MD Discharge Disposition: [facility] from Last 3 Months Social History Tobacco Use Types Packs/Day Years Used Date Smoking Tobacco: Every Day Cigarettes Passive Smoke Exposure: Never Smokeless Tobacco: Never Tobacco Cessation:Ready to Q uit: Not Asked; Counseling Given: Not Answered Alcohol Use Standard Drinks/Week Comments Yes 0 (1 standard drink = 0.6 oz pur e alcohol) 12/01 Gin Education Answer Date Recorded Are you interested in more education? Not on toby e 03/24/2023 Are you concerned about learning? Not on file 03/24/2023 No 03/24/2023 No 03/24/2023 Digital Access Answer Date Recorded No 04/22/2023 No 04/22/2023 Reliable internet access at home? Not on file 04/22/2023 Device with a working camera? Not on file Intimate Partner Violence Answer Date R ecorded Are you denied basic needs s uch as food, clothing, or medical care? No 01/18/2025 In the past 12 months have y ou been in a relationship with a person who hurts, threatens, or tries to control you? No 01/18/2025 Are you denied basic needs s uch as food, clothing, or medical care? No 01/18/2025 In the past 12 months have y ou been in a relationship with a person who hurts, threatens, or tries to control you? No 01/18/2025 Sex and Gender Information Value Date Recorded Sex Assigned at Male 05/20/2023 12:48 PM EDT Legal Sex Male 3:09 PM EST Gender Identity Male 05/20/2023 12:48 PM EDT Sexual Orientation Straight 05/20/2023 12 :48 PM EDT Last Filed Vital Signs Vital Sign Reading Time Taken Comments Blood Pressure 106/69 01/19/2025 8:15 AM EST Pulse 62 01/19/2025 8:15 AM EST Temperature 36.6 ??C (97.9 ??F) 01/19/2025 8:15 AM ES T Respiratory Rate 18 01/19/2025 8:15 AM EST Oxygen Saturation 94% 01/19/2025 8:15 AM EST Inhaled Oxygen Concentration - - Weight 181 kg (399 lb) 01/18/2025 6:30 PM EST Height 175.3 cm (5' 9 ) 01/18/2025 6:30 PM EST Body Mass Index 58.92 01/18/2025 6:30 PM EST Plan of Treatment Health Maintenance Due Date Last Done Comments Adult Td,Tdap Booster 2002 DEPRESSION SCREENING 2014 HPV VACCINES (1 - Male 3-dos e series) 2017 HEPATITIS C SCREENING 2020 HIV ONE-TIME SCREENING (18-6 5 YEARS) 2020 PNEUMOCOCCAL VACCINES (0-49 years) (1 of 2 - PCV) 2021 INFLUENZA VACCINE (#1) 2024 COVID-19 VACCINE (1 - 2023-2 5 season) 2024 SMOKING Hx and SMOKELESS TOB ACCO SCREENING 08/23/2025 08/23/2024 HEPATITIS A VACCINES Aged Out No long er eligible based on patient's age to complete this topic HIB VACCINES Aged Out No longer eligi ble based on patient's age to complete this topic MENINGOCOCCAL VACCINES (ACWY) Aged Out No longer eligible based on patient's age to complete this topic Medical Devices Not on file Procedures Procedure Name Priority Date/Time Associated Diagnosis Comments URINE SEDIMENT STAT 01/18/2025 10:08 PM EST URINALYSIS W/REFLEX URINE CULTURE STAT 01/18/2025 10:08 PM EST TOXICOLOGY SCREEN, URINE STAT 01/18/2025 10:08 PM EST TROPONIN Routine 01/18/2025 8:53 PM EST ETHANOL, BLOOD STAT 01/18/2025 8:53 PM EST LFTS (HEPATIC PANEL) STAT 01/18/2025 8:53 PM EST BASIC METABOLIC PANEL STAT 01/18/2025 8:53 PM EST CBC AND DIFFERENTIAL STAT 01/18/2025 8:53 PM EST ECG 12-LEAD STAT 01/18/2025 7:28 PM EST COVID PANDEMIC RESPIRATORY VIRAL ORDER (PRO) STAT 01/15/2025 1:57 PM EST TOXICOLOGY SCREEN, URINE STAT 01/15/2025 1:55 PM EST SALICYLATES STAT 01/14/2025 10:06 PM EST ACETAMINOPHEN LEVEL STAT 01/14/2025 1 0:06 PM EST ETHANOL, BLOOD STAT 01/14/2025 10:06 PM EST LFTS (HEPATIC PANEL) STAT 01/14/2025 10:06 PM EST BASIC METABOLIC PANEL STAT 01/14/2025 10:06 PM EST CBC AND DIFFERENTIAL STAT 01/14/2025 10:06 PM EST from Last 3 Months Results * (ABNORMAL) Urinalysis w/reflex Urine Culture (01/18/2025 10:08 PM EST) COLOR Yellow Yellow [facility] CLARITY Clear [facility] GLUCOSE Negative Negative [facility] BILI 1+(A) Negative [facility] KETONES 1+(A) Negative [facility] SPECIFIC GRAVITY >1.030 1.005 - 1.030 [facility] BLOOD 3+(A) Negative [facility] PH 5.5 5.0 - 8.0 [facility] Protein-UA Negative Negative [facility] NITRITE Negative Negative [facility] Leukocyte esterase, ur Negative Negative [facility] Urine (Urine) 01/18/2025 10: 08 PM EST 01/18/2025 10:12 PM EST Shannan Girard MD URINE ORDERABLES Final Re sult Performing Organization Address [facility]/ZIP Co de Phone Number [address] [address] * (ABNORMAL) Urine sediment (01/18/2025 10:08 PM EST) WBC 0-4(A) NONE SEEN /hpf [facility] RBC 11-20(A) NONE SEEN /hpf [facility] URINE EPITHELIAL 5-10(A) NONE SEEN [facility] MUCUS 3+(A) NONE SEEN /hpf [facility] BACTERIA Trace(A) NONE SEEN /hpf [facility] CAST 0-2 [facility] Comment:GRANULAR CAST 01/18/2025 10:0 8 PM EST 01/18/2025 10:12 PM EST us Shannan Girard MD URINE ORDERABLES Final Re sult Performing Organization Address City/[facility]/ZIP Co de Phone Number [address] [address] * (ABNORMAL) Toxicology screen, urine (01/18/2025 10:08 PM EST) Only the most recent of2 resultswithin the time period is included. URINE CANNABINOIDS NONE DETECTED NONE DETECTED [facility] Comment:Cutoff: 50 ng/mL URINE COCAINE METAB Positive(A) NONE DETECTED [facility] Comment:Cutoff: 300 ng/mL URINE AMPHETAMINES Positive(A) NONE DETECTED [facility] Comment:Cutoff: 1000 ng/mL URINE METHADONE NONE DETECTED NONE DETECTED [facility] Comment:Cutoff: 300 ng/mL URINE OPIATES NONE DETECTED NONE DETECTED [facility] Comment:Cutoff: 300 ng/mL URINE PHENCYCLIDINE NONE DETECTED NONE DETECTED [facility] Comment:Cutoff: 25 ng/mL URINE OXYCODONE NONE DETECTED NONE DETECTED [facility] Comment:Cutoff: 300 ng/mL URINE BARBITURATES NONE DETECTED NONE DETECTED [facility] Comment:Cutoff: 200 ng/mL URINE BENZODIAZEPINE NONE DETECTED NONE DETECTED [facility] Comment:Cutoff: 200 ng/mL URINE BUPRENORPHINE NONE DETECTED NONE DETECTED [facility] Comment:Cutoff: 5 ng/mL Fentanyl, urine NONE DETECTED NONE DETECTED [facility] Comment: Cutoff: 5 ng/mL INTERPRETATION FOR TOXICOLOGY PANEL: These results are unconfirmed and should be used for Medical Treatment purposes only. Urine (Urine) 01/18/2025 10: 08 PM EST 01/18/2025 10:13 PM EST us Shannan Girard MD URINE ORDERABLES Final Re sult Performing Organization Address City/[facility]/ZIP Co de Phone Number [address] [address] * Ethanol, blood (01/18/2025 8:53 PM EST) Only the most recent of2 resultswithin the time period is included. ETHANOL <10 <10 mg/dL [facility] Blood 01/18/2025 8:53 PM EST 01/18/2025 8:58 PM EST us Shannan Girard MD LAB BLOOD ORDERABLES Silvia l Result Performing Organization Address City/[facility] Co de Phone Number [address] [address] * (ABNORMAL) LFTs (hepatic panel) (01/18/2025 8:53 PM EST) Only the most recent of2 resultswithin the time period is included. ALKALINE PHOSPHATASE 64 39 - 117 U/L [facility] TOTAL BILIRUBIN 0.4 0.0 - 1.2 mg/dL [facility] DIRECT BILIRUBIN 0.2 0.0 - 0.2 mg/dL [facility] Bilirubin (Indirect) 0.2 0 - 1.5 mg/dL [facility] AST 42(H) 0 - 37 U/L [facility] ALT 50(H) 0 - 40 U/L [facility] TOTAL PROTEIN 7.8 6.5 - 8.0 g/dL [facility] ALBUMIN 3.8(L) 3.9 - 4.8 g/dL [facility] GLOBULIN 4.0 1 - 4.8 g/dL [facility] A/G Ratio 0.95(L) 1.00 - 4.80 RATIO [facility] Blood 01/18/2025 8:53 PM EST 01/18/2025 8:58 PM EST us Shannan Girard MD LAB BLOOD ORDERABLES Slivia krause Result [facility] [address] [place] [address] * (ABNORMAL) CBC and differential (01/18/2025 8:53 PM EST) Only the most recent of2 resultswithin the time period is included. WBC 14.43(H) 4.00 - 11.00 K/uL [facility] RBC 4.93 4.50 - 5.90 M/uL [facility] HGB 14.6 13.5 - 17.5 g/dL [facility] HCT 42.0 41.0 - 53.0 % [facility] PLT 368 150 - 450 K/uL [facility] MCV 85.2 80.0 - 100.0 fL [facility] MCH 29.6 27.0 - 31.0 pg [facility] MCHC 34.8 32.0 - 36.0 g/dL [facility] RDW 13.2 11.5 - 14.5 % [facility] MPV 8.6 8.4 - 12.0 fL [facility] NRBC 0.00 0.00 /100 WBCs [facility] ABSOLUTE NRBC 0.00 0.00 K/uL [facility] DIFF METHOD Auto [facility] NEUTS 58.0 48.0 - 76.0 % [facility] LYMPHS 30.9 18.0 - 41.0 % [facility] Comment: Moderate Atypical Lymphs MONOS 7.7 4.0 - 11.0 % [facility] EOS 2.5 0.0 - 5.0 % [facility] BASOS 0.4 0.0 - 1.5 % [facility] Granulocytes, immature (%) 0.5 0.0 - 0.9 % [facility] ABSOLUTE NEUTS 8.37(H) 1.92 - 7.60 K/uL [facility] ABSOLUTE LYMPHS 4.46(H) 0.72 - 4.10 K/uL [facility] ABSOLUTE MONOS 1.11(H) 0.16 - 1.10 K/uL [facility] ABSOLUTE EOS 0.36 0.00 - 0.50 K/uL [facility] ABSOLUTE BASOS 0.06 0.00 - 0.15 K/uL [facility] Granulocytes, immature 0.07 0.00 - 0.09 K/uL [facility] Blood 01/18/2025 8:53 PM EST 01/18/2025 8:58 PM EST us Shannan Girard MD LAB BLOOD ORDERABLES Silvia l Result Performing Organization Address City/[facility]/ZIP Co de Phone Number [address] [address] * Troponin (01/18/2025 8:53 PM EST) Troponin-T, HS Gen5 <6 0 - 14 ng/L [facility] 01/18/2025 8:53 PM EST 01/18/2025 8:58 PM EST us Shannan Girard MD LAB BLOOD ORDERABLES Silvia l Result [address] [address] * Basic metabolic panel (01/18/2025 8:53 PM EST) Only the most recent of2 resultswithin the time period is included. Pathologist [facility] SODIUM 140 133 - 146 mmol/L [facility] CHLORIDE 102 96 - 108 mmol/L [facility] POTASSIUM 3.6 3.3 - 5.1 mmol/L [facility] CO2 22 21 - 35 mmol/L [facility] BUN 14 6 - 19 mg/dL [facility] CREATININE 0.70 0.5 - 1.5 mg/dL [facility] GLUCOSE 90 70 - 99 mg/dL [facility] CALCIUM 8.9 8.4 - 10.3 mg/dL [facility] EGFR >120 >59 mL/min/1.7 3m2 [facility] Comment:Estimated glomerular filtration rate calculated using the CKD-EPI refit equation. ANION GAP 20 10 - 20 mmol/L [facility] Blood 01/18/2025 8:53 PM EST 01/18/2025 8:58 PM EST us Shannan Girard MD LAB BLOOD ORDERABLES Silvia l Result Performing Organization Address [facility] Co de Phone Number [address] [address] * ECG 12-LEAD (01/18/2025 7:28 PM EST) [facility] Ventricular Rate EKG/MIN 91 BPM [facility] Atrial Rate 91 BPM [facility] IL Interval 178 ms [facility] QRS Duration 104 ms [facility] QT Interval 372 ms [facility] QTC Interval 457 ms [facility] P Hondo 31 degrees [facility] R Wave [place] -27 degrees [facility] T Wave [place] 5 degrees [facility] 01/18/2025 7:28 PM EST 01/19/2025 10:52 AM EST Narrative [facility] - 01/19/2025 10:52 AM EST Normal sinus rhythm Cannot rule out Anterior infarct , age undetermined Abnormal ECG When compared with ECG of 10-Feb-2025 21:57, No significant change was found Confirmed by Rocky Dubose ([id number]) on 01/19/2025 10:52:15 AM Matteo Barbour MD ECG ORDERABLES Final Resu lt Performing Organization Address [facility] de Phone Number [email or web address] * COVID Pandemic Respiratory Viral Order (PRO) (01/15/2025 1:57 PM EST) Pathologist [facility] Test Ordered Rapid COVID, Flu has been ordered [facility] Specimen Source/Descriptio n NASOPHARYNGEAL SWAB [facility] Influenza A PCR Not Detected Not Detected [facility] Influenza B PCR Not Detected Not Detected [facility] SARS-CoV 2 (COVID-19) PCR Not Detected Not Detected [facility] Comment: SARS-CoV-2 not detected Negative results do not preclude SARS-CoV-2 infection and should not be used as the sole basis for patient management decisions. Negative results must be combined with clinical observations, patient history, and epidemiological information. Other (Nasopharyngeal swab) 01/15/2025 1:57 PM EST 01/15/2025 2:04 PM EST Carlos Hermosillo MD BODY FLUIDS AND STOOLS ORDERABL ES Final Result Performing Organization Address [facility] de Phone Number [address] [address] * (ABNORMAL) Acetaminophen level (01/14/2025 10:06 PM EST) [facility] ACETAMINOPHEN <5.0(L) 15.0 - 30.0 ug/mL [facility] Blood 01/14/2025 10:0 6 PM EST 01/14/2025 10:09 PM EST Yeni Jarrell MD LAB BLOOD ORDERABLES Final R esult Performing Organization Address [facility] de Phone Number [address] [address] * (ABNORMAL) Salicylates (01/14/2025 10:06 PM EST) SALICYLATES <0.3(L) 2.8 - 19.9 mg/dL [facility] Blood 01/14/2025 10:0 6 PM EST 01/14/2025 10:09 PM EST us Yeni Jarrell MD LAB BLOOD ORDERABLES Final R esult [facility] [address] [place] [address] from Last 3 Months Insurance [facility] Care Teams Weight Tester Relationship Specialty Start Date End Date Dinh Jaimes DO [address] [id number] [place] [id number] [email or web address] PCP - General Family Medicine 05/20/23 Additional Source Comments The information contained in this document represents components of the legal health record. It is not the complete legal health record.[facility]
--- OUTSIDE RECORDS SUMMARY | 2025-04-07 22:57 | XMS_ITS | Encounter Summary ---
Author Organization [employer] Address [address] [place] [id number] Care Team Providers Care Other Wood Processing Machine Operator Name Role Phone Provider, Not In System Primary Care Provider Un available Encounter Details Date Type Department Care Team ([facility] st Contact Info) Description 02/18/2025 Telephone [facility] [address] [place] [address] Lacey Jeronimo FNP [address] [place], [place] [phone] Social History Tobacco Use Types Packs/Day Years Used Date Smoking Tobacco: Every Day Cigarettes 2 2 Passive Smoke Exposure: Current Smokeless Tobacco: Never Alcohol Use Standard Drinks/Week Comments Not Currently 0 (1 standard drink = 0.6 oz pur e alcohol) Alcohol Answer Date Recorded How often do you have a drink containing alcohol ? 0 03/22/2024 How many drinks containing a lcohol do you have on a typical day when you are drinking? 0 03/22/2024 How often do you have six or more drinks on one occasion? 0 03/22/2024 Depression Answer Date Recorded Patient Health Questionnaire-9 Score 27 04/04/2024 Patient Health Questionnaire-9 Score 27 04/04/2024 Last PHQ-9: Questionnaire Data Not on file 0 04/04/2024 Housing Stability Answer Date Recorded What is your housing situation today? I do not have housing (Staying with others, in a hotel, in a penitentiary, living outside on the street, on a beach, in a car, or in a park 03/22/[address] you li ve. Do you have problems with any of the following? None of the above 03/22/2024 Food Insecurity Answer Date Recorded Within the past 12 months, y ou worried that your food would run out before you got money to buy more: Often true 03/22/2024 Within the past 12 months,th e food you bought just didn't last and you didn't have enough money to get more: Often true Transportation Answer Date Recorded In the past 12 months, has l ack of transportation kept you from medical appts, meetings, work or from getting things needed for daily living? No 03/22/2024 Intimate Partner Violence Answer Date R ecorded Within the last year, have y ou been afraid of your partner or ex-partner? 2 03/22/2024 Within the last year, have y ou been humiliated or emotionally abused in other ways by your partner or ex-partner? 2 Within the last year, have y ou been kicked, hit, slapped, or otherwise physically hurt by your partner or ex-partner? 2 03/22/2024 Within the last year, have y ou been raped or forced to have any kind of sexual activity by your partner or ex-partner? 2 03/22/2024 Utilities Answer Date Recorded In the past 12 months, has t he electric, gas, oil or water company threatened to shut off services in your home? No 03/22/2024 Depression Answer Date Recorded Patient Health Questionnaire-2 Score 6 04/04/2024 Internet Access Answer Date Recorded Internet Access Q1 Yes 08/06/2024 Internet Access Q2 Not on file 08/06/2024 Sex and Gender Information Value Date Recorded Sex Assigned at Male 09/23/2022 5:36 PM EDT Legal Sex Male 5:36 PM EDT Gender Identity Transgender Female 03/22/2024 10 :10 AM EDT Sexual Orientation Lesbian or Fleming 03/22/2024 10 :11 AM EDT documented as of this encounter Miscellaneous Notes * Telephone Encounter - Jackie Peña LPN - 02/18/2025 11:22 AM EDT Armani Willis Psych Director at [facility] stated pt sign release for for provider to speak with him on pt mental sanjana and treatment. Stated he spoke to pt after his appointment with provider last week. Informed that we have no knowledge of an appointment last week. Per our last record pt [facility]. Provider would like headline writer to check with LM and see if provider knowsanything about this pt changing md. Told to also check with pt. * Telephone Encounter - Pauly Paul - 02/18/2025 11:08 AM EDT Armani Willis Psych Director at [facility] lm on vmail at 1049 am asking that LM call him to assist in medical/mental health treatment. documented in this encounter Plan of Treatment Not on file documented as of this encounter Visit Diagnoses Not on filedocumented in this encounter Additional Health Concerns Assessment Noted Time PHQ-9 Depression Total Score: 27 024 4:30 PM EDT documented as of this encounter Care Teams Other Wood Processing Machine Operator Relationship Specialty Start Date End Date Provider, Not In System PCP - General Family Medicine 01/24/25 documented as of this encounter
--- OUTSIDE RECORDS SUMMARY | 2025-04-07 22:57 | XMS_ITS | Referral Summary ---
Author Organization [facility] Address [address] [place] [address] Care Team Providers Care Waiter/Waitress Tavern Name Role Phone Ed, [facility]-Attn: Primary Care Provider Unavailable Encounters Date Type Department Care Team Description 01/27/2025 Telephone [facility] [address] [place] [address] Pyrometallurgical Engineer: Roxy Gonzalez MA from Last 3 Months Allergies No known active allergies Medications * This document contains information received from the source organization and may not represent a complete record from that organization. desmopressin (DDAVP) 0.2 mg tablet Take 0.4 mg by mouth once a day. Active prazosin (MINIPRESS) 5 mg capsule Take 5 mg by mouth nightly. Active levothyroxine (SYNTHROID, LEVOTHROID) 25 mcg tablet Take 100 mcg by mouth once a day. 07/01/2021 Active docusate sodium (COLACE) 100 mg capsule TAKE 1 CAPSULE BY MOUTH TWICE A DAY NEEDED FOR HARD STOOL 07/01/2021 Active QUEtiapine (SEROquel) 50 mg tablet Take 50 mg by mouth at bed time. at bedtime. 07/01/2021 Active Flovent HFA 110 mcg/actuation inhaler Inhale 1 puff by mouth 2 times a day. 12/16/2021 Active calcium carbonate (TUMS) 200 mg calcium (500 mg) chewable tablet Chew and swallow 2 tablets by mouth 2 times a day. Morning and night PRN for GERD Active acetaminophen (TYLENOL) 325 mg tablet Take 3 tablets (975 mg total) by mouth every 6 hours as needed for pain. 20 tablet 08/19/2023 Active benztropine (COGENTIN) 0.5 mg tablet Take 4 tablets (2 mg total) by mouth 2 times a day. 10 tablet 08/19/2023 Active chlorproMAZINE (THORAZINE) 50 mg tablet Take 1 tablet (50 mg total) by mouth 3 times a day. 15 tablet 08/19/2023 Active gabapentin (NEURONTIN) 800 mg tablet Take 1 tablet (800 mg total) by mouth 3 times a day for 5 days. 15 tablet 08/19/2023 Active metoprolol tartrate (LOPRESSOR) 50 mg tablet Take 1 tablet (50 mg total) by mouth 2 times a day for 5 days. Take 1 tablet (50 mg) by mouth 12 hours prior to exam. Take 1 tablet (50 mg) by mouth 1 hour prior to exam. 10 tablet 08/19/2023 Active Active Problems Problem Noted Date Diagnosed Date Abnormal PFTs 08/08/2022 Asthma in adult 08/08/2022 Drug overdose, intentional self-harm, initial en counter 08/15/2021 OD (overdose of drug), inten tional self-harm, initial encounter 08/14/2021 Assessment & Plan (08/14/2021 8:18 PM EDT): Patient presented after intentional polypharmacy overdose (seroquel, benadryl, and melatonin). Toxicology was consulted and the patient has required continuous cardiac monitoring as well as continued monitoring for altered mental status. Patient is section 12. - Maintain 1:1 given section 12 and suicidality - Telemetry monitoring - Optimize electrolytes, fluid status - EKG q6h - Patient will need psychiatry evaluation once medically stabilized Leukocytosis 08/14/2021 Assessment & Plan (08/14/2021 8:33 PM EDT): Patient noted to have leukocytosis 10.9 with normal differential on admission. Suspect stress response rather than infection. - Monitor off antibiotics - Trend CBC and fever curve Elevated troponin 08/14/2021 Assessment & Plan (08/14/2021 8:34 PM EDT): Patient reported chest pain to ED team and initial troponin 0.49. Subsequent troponin 0.03 and < 0.02. Chest pain resolved. - Monitor on telemetry - Monitor for any recurrence of chest pain Abdominal pain 08/14/2018 Constipation 08/14/2018 Other constipation 06/14/2018 Gastritis without bleeding 06/14/2018 Right knee sprain 08/05/2016 Low serum cortisol level 01/04/2016 Suicidal ideation 12/03/2015 Overview (08/14/2021): Suicidal ideation with a plan to cut or stab self with a knife in the context of frustration with current DCF placement. Mood disorder 04/22/2014 Assessment & Plan (08/14/2021 8:25 PM EDT): Patient has a history of mood disorders, PTSD, ODD and bipolar disorder. He has history of suicidal ideation and hospitalizations. 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 PTSD (post-traumatic stress disorder) 05/08/2012 Social History Tobacco Use Types Packs/Day Years [...] on file Sexual Orientation Not on file Last Filed Vital Signs Vital Sign Reading Time Taken Comments Blood Pressure 119/87 08/26/2023 8:59 AM EDT Pulse 85 08/26/2023 8:59 AM EDT Temperature 36.1 ??C (97 ??F) 08/26/2023 8:59 AM EDT Respiratory Rate 18 08/26/2023 8:59 AM EDT Oxygen Saturation 96% 08/26/2023 8:59 AM EDT Inhaled Oxygen Concentration - - Weight 204.1 kg (450 lb) 08/21/2023 9:37 PM EDT Height 175.3 cm (5' 9 ) 08/21/2023 9:37 PM EDT Body Mass Index 66.45 08/21/2023 9:37 PM EDT Plan of Treatment Not on file Procedures * Due to [place] state law, this organization might not be sharing negative HIV tests. Procedure Name Priority Date/Time Associated Diagnosis Comments HEPATITIS PANEL, ACUTE Routine 08/17/2018 2:07 PM EDT STD exposure CHLAMYDIA/NEISSERI A GONORRHEA RNA Routine 08/17/2018 2:00 PM EDT Encounter for screening for infections with predominantly sexual mode of transmission from Last 3 Months or Most Recently Relevant to Health Maintenance Results * Due to [place] state law, this organization might not be sharing negative HIV tests. * Hepatitis Panel, Acute (08/17/2018 2:07 PM EDT) Hepatitis B Surface Antigen Interpretation Non-Reactive Non-Reactive 8 1:27 PM EDT [facility] Hepatitis A IgM Antibody Interpretation Nonreactive Nonreactive 8 1:27 PM EDT [facility] Hepatitis B Core IgM Antibody Interpretation Nonreactive Nonreactive 8 1:27 PM EDT [facility] Comment: Dietary supplements containing biotin may interfere in assays and may skew analyte results to be falsely low. ?? For patients receiving the recommended daily doses of biotin, draw samples at least 8 hours following the last biotin supplementation. ?? For patients on nakul-doses of biotin supplements, draw samples at least 72 hours following the last biotin supplementation. Hepatitis C Antibody Interpretation Nonreactive Nonreactive 8 1:27 PM EDT [facility] Blood specimen (specimen) Structure of peripheral vein / Unknown Venipuncture / Unknown 08/17/2018 2:07 PM EDT 08/17/2018 2:08 PM EDT us Rubens Terry MD LAB BLOOD ORDERABLES Final Re sult [facility] [address] [place] [id number], * Chlamydia/Neisseria gonorrhoeae RNA (08/17/2018 2:00 PM EDT) Chlamydia trachomatis RNA, TMA NOT DETECTED NOT DETECTED 08/18/2018 2:45 PM EDT [facility] Neisseria Gonorrhoeae RNA, TMA NOT DETECTED NOT DETECTED 08/18/2018 2:45 PM EDT [employer] [facility] Comment: This test was performed using the [employer] COMBO2 Assay ([employer] The analytical performance characteristics of this assay, when used to test SurePath specimens have been determined by [employer]. ?? Urine specimen (specimen) Voided urine specimen / Unknown 08/17/2018 2:00 PM EDT 08/17/2018 6:14 PM EDT Narrative [facility] - 08/18/2018 2:45 PM EDT [facility] Received Date: Rubens Terry MD LAB URINE ORDERABLES Final Re sult [facility] [address], [place] [address], [place] [phone] [employer] [facility] [address], [place] [address], from Last 3 Months or Most Recently Relevant to Health Maintenance Insurance [facility] [place] [id number] [place] [address] [facility] Advance Directives * Full Code (Latest Code Status on File) Date Activated Date Inactivated Comments 08/14/2021 8:05 PM 08/15/2021 9:52 PM * Full Code Date Activated Date Inactivated Comments 09/12/2017 10:07 AM 09/12/2017 3:00 PM Care Teams Waiter/Waitress Tavern Relationship Specialty Start Date End Date Ed, [facility]-Attn: PCP - General 12/25/24
--- OUTSIDE RECORDS SUMMARY | 2025-04-07 22:57 | XMS_ITS | Encounter Summary ---
Author Organization [employer] Address [address] [place] [address] Care Team Providers Care Broacher Name Role Phone Lacey Jeronimo Primary Care Provider [phone] Provider, Not In System Primary Care Provider Un available Lacey Jeronimo Primary Care Provider [phone] Provider, Not In System Primary Care Provider Un available Encounter Details Date Type Department Care Team ([facility] Contact Info) Description 09/16/[address] [phone] Lacey Jeronimo FNP [address] [place] [address] [phone] Social History Tobacco Use Types Packs/Day Years [...] with others, in a hotel, in a senior living, living outside on the street, on a [...] encounter Miscellaneous Notes * Telephone Encounter - Ron Loco LPN - 09/17/2024 2:37 PM EDT Left another message to call back * Telephone Encounter - Elva Carey - 09/16/2024 2:25 PM EDT Needs an er follow up, was seen on thurs or fri last week at the home ed for stomach and kidney problems, blood in his urine. Please call [phone] documented in this encounter Plan of Treatment Not on file documented as of this encounter Visit Diagnoses Not on filedocumented in this encounter Additional Health Concerns Assessment Noted Time PHQ-9 Depression Total Score: 024 4:30 PM EDT documented as of this encounter Care Teams Broacher Relationship Specialty Start Date End Date Lacey Jeronimo FNP [address] [place] [phone] PCP - General Family Medicine 06/05/24 11/10/24 Provider, Not In System PCP - General Family Medicine 11/11/24 01/20/25 Lacey Jeronimo FNP [address] [place] [phone] PCP - General Family Medicine 01/21/25 01/23/25 Provider, Not In System PCP - General Family Medicine 01/24/25 documented as of this encounter
--- OUTSIDE RECORDS SUMMARY | 2025-04-07 22:57 | XMS_ITS | Encounter Summary ---
Author Organization [email or web address] Address [address] [place] [address] Care Team Providers Care Mountain Bike Guide Name Role Phone Lacey Jeronimo Primary Care Provider [phone] Provider, Not In System Primary Care Provider Un available Lacey Jeronimo Primary Care Provider [phone] Provider, Not In System Primary Care Provider Un available Encounter Details Date Type Department Care Team ([facility] Contact Info) Description 09/02/[address] [phone] Lacey Jeronimo FNP [address] [place] [address] [phone] Social History Tobacco Use Types Packs/Day Years [...] with others, in a hotel, in a fpc, living outside on the street, on a [...] encounter Miscellaneous Notes * Telephone Encounter - Elva Carey - 09/02/2024 1:50 PM EDT Not feeling well lately, headaches and body aches for about 3 days . Negative for covid. Please call [phone] documented in this encounter Plan of Treatment Not on file documented as of this encounter Visit Diagnoses Not on filedocumented in this encounter Additional Health Concerns Assessment Noted Time PHQ-9 Depression Total Score: 27 024 4:30 PM EDT documented as of this encounter Care Teams Mountain Bike Guide Relationship Specialty Start Date End Date Lacey Jeronimo FNP [address] [place] [phone] PCP - General Family Medicine 06/05/24 11/10/24 Provider, Not In System PCP - General Family Medicine 11/11/24 01/20/25 Lacey Jeronimo FNP [address] [place] [address] PCP - General Family Medicine 01/21/25 01/23/25 Provider, Not In System PCP - General Family Medicine 01/24/25 documented as of this encounter
--- OUTSIDE RECORDS SUMMARY | 2025-04-07 22:57 | XMS_ITS | Clinical Summary ---
Author Organization [employer] Address [address] [place] [address] Care Team Providers Care Local Area Network Systems Adminstrator Name Role Phone Unavailable Primary Care Provider Unavailabl e Social History Tobacco Use Types Packs/Day Years Used Date Smoking Tobacco: Never Assessed Sex and Gender Information Value Date Recorded Sex Assigned at Not on file Legal Sex Male 12:35 AM EST Gender Identity Not on file Sexual Orientation Not on file Plan of Treatment Health Maintenance Due Date Last Done Comments Blood Pressure 2002 Depression Screening 2006 Hepatitis C Screening 2020 DTaP,Tdap,and Td Vaccines (1 - Tdap) 2021 COVID-19 Vaccine (2023-2 5 season) 2024 Influenza Vaccine (Season Ended) 2025 Meningococcal Vaccines Aged Out No lo nger eligible based on patient's age to complete this topic Pneumococcal Vaccine: Pediat rics (0 to 5 Years) and At-Risk Patients (6 to 64 Years) Aged Out No longer eligible b ased on patient's age to complete this topic
--- OUTSIDE RECORDS SUMMARY | 2025-04-07 22:57 | XMS_ITS | Encounter Summary ---
Author Organization [facility] Address [address] [place] [address] Care Team Providers Care Deck Engine Operator Name Role Phone [facility]-Attn: Primary Care Provider Unavailable Encounter Details Date Type Department Care Team (Late st Contact Info) Description 08/06/2018 Lab Requisition [facility] [address] [place] [address] Man, John Andrew MD [address] [place] [address] Urinary tract infection Social History Tobacco Use Types Packs/Day Years [...] of this encounter Procedures * Due to [place] [address] law, this organization might not be sharing negative HIV tests. Procedure Name Priority Date/Time Associated Diagnosis Comments URINE CULTURE, ROUTINE Routine 08/06/2018 11:15 AM EDT Urinary tract infection documented in this encounter Results * Due to [place] [address] law, this organization might not be sharing negative HIV tests. * Urine Culture, Routine (08/06/2018 11:15 AM EDT) Urine Culture Workup No growth (<1,000 CFU/mL) after 24 hours [facility] [facility] 08/08/2018 9:37 AM EDT [facility] Urine specimen (specimen) Urine specimen collection, clean catch / Unknown 08/06/2018 11:15 AM EDT 08/06/2018 1:42 PM EDT us John Kern MD LAB MICROBIOLOGY - GENERAL ORDERABLES Final Result [facility] [address] [place] [address], documented in this encounter Visit Diagnoses Diagnosis Urinary tract infection Urinary tract infection, site not specified documented in this encounter Additional Health Concerns Infection Onset Date Last Indicated Resolved Time COVID-19 - Suspected infection 12/28/2020 01/05/2021 01/05/2021 7:47 PM EST COVID-19 - Suspected infection 08/20/2023 08/20/2023 08/20/2023 3:46 PM EDT COVID-19 - Suspected infection 08/20/2023 08/20/2023 08/21/2023 12:02 AM EDT documented as of this encounter Care Teams Deck Engine Operator Relationship Specialty Start Date End Date Ed, [place] [place] [facility]-Attn: PCP - General 12/25/24 documented as of this encounter
--- OUTSIDE RECORDS SUMMARY | 2025-04-07 22:57 | XMS_ITS | Patient Health Record ---
Author Organization [facility] Address [address], [place] [id number] Care Team Providers Care Calculation Clerk Name Role Phone Devan Graham Primary Care Provider Reason For Referral No Information Medications Medication SIG (Take, Route, Fr equency, Duration) Notes Start Date End Date Status ondansetron 8 mg 1 tab(s) orally 3 ti mes a day FOR OMITING for 5 days Active Social History Sex Assigned At : Social History Observation Description Sex Assigned At Male Problems Problem Type SNOMED Code ICD Code Onset Dates Problem Status W/U Status Risk Notes Problem Morbid (severe) obesity due to excess calories (E66.01) Active confirmed Problem Sheltered homelessness (559439388584890 ) Sheltered homelessness (Z59.01) Active confirmed Plan Of Treatment No Information Insurance Providers Payer Name Payer Address Payer Phone Subscriber Number Group Number Insured Name Patient Relationship to Insured Coverage Start Date Coverage End Date [place] Medicaid Standard [address] [place] [address] [id number] Kamran Bo Self - patient is the insured 3
--- OUTSIDE RECORDS SUMMARY | 2025-04-07 22:57 | XMS_ITS | Clinical Summary ---
Author Organization [email or web address] Address [address] [place] [address] Care Team Providers Care Donation Worker Name Role Phone Provider, Not In System Primary Care Provider Un available Allergies No known active allergies Medications * This document contains information received from the source organization and may not represent a complete record from that organization. chlorproMAZINE (Thorazine) 50 MG tablet TAKE 1 TABLET BY MOUTH EVERY MORNING AND 2 AT BEDTIME 3 Active clotrimazole (Lotrimin) 1 % cream APPLY TOPICALLY TWICE DAILY FOR 14 DAYS 4 Active albuterol 108 (90 Base) MCG/ACT inhalerIndication s:Mild intermittent asthma, unspecified whether complicated Inhale 2 puffs every 6 (six) hours if needed for shortness of breath. 18 g 3 4 Active Flovent HFA 110 MCG/ACT inhalerIndication s:Continuous leakage of urine Inhale 1 puff 2 times daily. 12 g 3 4 Active fluticasone furoate (Arnuity Ellipta) 100 MCG/ACT inhalerIndication s:Mild intermittent asthma, unspecified whether complicated Inhale 1 puff Once per day. Rinse mouth with water after use to reduce aftertaste and incidence of candidiasis. Do not swallow. 1 each 11 4 Active gabapentin (Neurontin) 600 MG tabletIndications :Other chronic pain Take 2 tablets (1,200 mg) by mouth 3 times daily. 168 tablet 3 4 Active topiramate (Topamax) 25 MG tabletIndications :Cocaine dependence without complication (CMS/HCC) Take 1 tablet (25 mg) by mouth 2 times daily. 60 tablet 4 08/06/20 25 Active Active Problems Problem Noted Date Diagnosed Date Mild intermittent asthma 09/03/2024 Mental health problem 08/23/2024 Cocaine addiction 08/06/2024 Overview (08/06/2024): Dc adderall Neuropathy 07/26/2024 Suicidal ideation 04/19/2024 Anxiety 04/05/2024 Assessment & Plan (06/06/2024 12:55 PM EDT): 23yo adult with nonspecific increase in anxiety requesting klonopin. Phone call cut off - tried calling back 3 more times, suspect pt may have terminated the visit due to growing frustration at provider unease towards prescribing benzo for symptoms. Happy to see pt again if would like to reschedule or defer to another provider. Constipation 04/05/2024 Hypertension 04/05/2024 Severe obesity 04/05/2024 Other chronic pain 04/05/2024 Patellofemoral disorders, right knee 04/05/2024 PTSD (post-traumatic stress disorder) 04/05/2024 Skin lesion of breast 04/05/2024 Sleep apnea 04/05/2024 Disease due to severe acute respiratory syndrome coronavirus 2 (SARS-CoV-2) 06/30/2023 Overview (04/05/2024): Problem added by Discern Expert Encounters Date Type Department Care Team Description 02/18/2025 Telephone [facility] [address] [place] [phone] Lacey Jeronimo FNP 01/23/2025 Telephone [facility] [address] [phone] Debbi Orozco, OPTOMETRIC ASSISTANT Follow-up ([facility] and [facility]) from Last 3 Months Immunizations Name Administration Dates Next Due Moderna Covid-19 Vaccine 12+ 03/22/2024 Social History Tobacco Use Types Packs/Day Years Used Date Smoking Tobacco: Every Day Cigarettes 2 2 Passive Smoke Exposure: Current Smokeless Tobacco: Never Tobacco Cessation:Ready to Q uit: Not Asked; Counseling Given: Not Answered Alcohol Use Standard Drinks/Week Comments Not Currently [...] with others, in a hotel, in a jail, living outside on the street, on a [...] or [place] 03/22/2024 10 :11 AM EDT Last Filed Vital Signs Vital Sign Reading Time Taken Comments Blood Pressure 130/82 08/06/2024 5:13 PM EDT Pulse 104 08/06/2024 5:13 PM EDT Temperature 36.4 ??C (97.5 ??F) 08/06/2024 5:13 PM ED T Respiratory Rate - - Oxygen Saturation 98% 08/06/2024 5:13 PM EDT Inhaled Oxygen Concentration - - Weight 172 kg (380 lb) 08/06/2024 5:13 PM EDT Height 175.3 cm (5' 9 ) 04/04/2024 4:23 PM EDT Body Mass Index 56.12 04/04/2024 4:23 PM EDT Plan of Treatment Health Maintenance Due Date Last Done Comments Lipid Panel 2002 Alcohol/Substance Use Screening 2014 Family Planning (PISQ) 2017 HPV Vaccines (1 - 3-dose series) 2017 Hepatitis C Screening 2020 Hepatitis B Vaccines (1 of 3 - 19+ 3-dose series) 2021 Pneumococcal Vaccine: Pediatrics (0 to 5 Years) and At-Risk Patients (6 to 49) Years) (1 of 2 - PCV) 2021 COVID-19 Vaccine (4 - 2023-2 5 season) 2024 03/22/2024, 09/03/2021, 08/13/2021 Influenza Vaccine (#1) 2024 Chlamydia and Gonorrhea Screening 10/16/2024 10/16/2023 SDOH Screening 03/22/2025 03/22/2024 Depression Screening 04/04/2025 04/04/2024, 04/04/2024 Tobacco Screening 08/06/2025 08/06/2024 DTaP/Tdap/Td Vaccines (3 - T d or Tdap) 11/11/2034 11/11/2024, 06/10/2014 Zoster Vaccines (1 of 2) 2052 RSV Patients and Patients Aged 60 years or older (1 - 1-dose 75+ series) 2077 HIV Screening Completed 05/04/2023 Hepatitis A Vaccines Aged Out 01/01/2024 No long er eligible based on patient's age to complete this topic HIB Vaccines Aged Out No longer eligi ble based on patient's age to complete this topic IPV Vaccines Aged Out No longer eligi ble based on patient's age to complete this topic Meningococcal Vaccine Aged Out No morelia vita eligible based on patient's age to complete this topic RSV under 20 months Aged Out No longe r eligible based on patient's age to complete this topic Rotavirus Vaccines Aged Out No longer eligible based on patient's age to complete this topic Procedures Procedure Name Priority Date/Time Associated Diagnosis Comments CHLAMYDIA/GONORRHEA, URINE Routine 10/16/2023 HM HIV 1/2 ANTIGEN AND ANTIBODY Routine 05/04/2023 from Last 3 Months or Most Recently Relevant to Health Maintenance Results * Chlamydia/Gonorrhea, Urine (10/16/2023) Chlamydia, Urine None Detected Negative, Indeterminate, None Detected, Invalid, Specimen unsatisfactory for evaluation, Weakly Positive Urine Historical Provider MD HEALTH MAINTENANCE Final Result * HIV 1/2 Antigen and Antibody (05/04/2023) HIV Ag/Ab Nonreactive us Historical Provider MD HEALTH MAINTENANCE Final Result from Last 3 Months or Most Recently Relevant to Health Maintenance Insurance [facility] Care Teams Donation Worker Relationship Specialty Start Date End Date Provider, Not In System PCP - General Family Medicine 01/24/25
--- OUTSIDE RECORDS SUMMARY | 2025-04-07 22:57 | XMS_ITS | Clinical Summary ---
Author Organization [facility] Address [address] [place] [address] Care Team Providers Care Manager Security And Safety Name Role Phone [facility]-Attn: Primary Care Provider Unavailable Allergies No known active allergies Medications * [...] obesity 03/14/2014 PTSD (post-traumatic stress disorder) 05/08/2012 Encounters Date Type Department Care Team Description 01/27/2025 Telephone [facility] [address] [place] [phone] Die Trimmer: Roxy Gonzalez MA from Last 3 Months Family History * Patient is adopted Medical History Relation Name Comments Other Mother No pertinent fa misha history Other Mother's Sister Family Histo ry of obesity Relation Name Status Comments Mother Mother's Sister Social History Tobacco Use Types Packs/Day Years [...] 08/21/2023 9:37 PM EDT Plan of Treatment Health Maintenance Due Date Last Done Comments Pneumococcal Vaccine: Pediatric (0-5 Years) and At-Risk Patients (6-50 Years) (1 of 1 - PPSV23) 2008 06/16/2003, 04/16/2003, 02/14/2003 HPV Vaccines (1 - 3-dose series) 2017 Chlamydia Screening 08/17/2019 08/17/2018 DTaP,Tdap,and Td Vaccines (7 - Td or Tdap) 06/10/2024 06/10/2014, 02/06/2007, 03/24/2004, Additional history exists COVID-19 Vaccine ( season) 2024 09/03/2021, 08/13/2021 Alcohol/Substance Use Screening 11/27/2024 Depression Screening and Follow-Up 11/27/2024 Social Drivers of Health Annual Screening 11/27/2024 Influenza Vaccine (Season Ended) 2025 RSV Vaccine (60+ years old and patients) (1 - 1-dose 75+ series) 2077 Hepatitis B Vaccines Completed 09/16/2003, 2002, 2002 Varicella Vaccines Completed 02/06/2007, 07/22/2004 Meningococcal Vaccine Aged Out 06/10/2014 No morelia vita eligible based on patient's age to complete this topic HIV Screening Completed 08/17/2018 Hepatitis C Screening Completed 08/17/2018 Procedures * Due to [place] state law, this organization might not be sharing negative HIV tests. Procedure Name Priority Date/Time Associated Diagnosis Comments HEPATITIS PANEL, ACUTE Routine 08/17/2018 2:07 PM EDT STD exposure CHLAMYDIA/NEISSERI A GONORRHEA RNA Routine 08/17/2018 2:00 PM EDT Encounter for screening for infections with predominantly sexual mode of transmission from Last 3 Months or Most Recently Relevant to Health Maintenance Results * Due to [place] state law, this organization might not be sharing negative HIV tests. * Hepatitis Panel, Acute (08/17/2018 2:07 PM EDT) Pathologist [facility] Hepatitis B Surface Antigen Interpretation Non-Reactive Non-Reactive 8 1:27 PM EDT [facility] Hepatitis A IgM Antibody Interpretation Nonreactive Nonreactive 8 1:27 PM EDT [facility] Hepatitis B Core IgM Antibody Interpretation Nonreactive Nonreactive 8 1:27 PM EDT [facility] Comment: Dietary supplements containing biotin may [...] Interpretation Nonreactive Nonreactive 8 1:27 PM EDT [facility] Blood specimen (specimen) Structure of peripheral vein / Unknown Venipuncture / Unknown 08/17/2018 2:07 PM EDT 08/17/2018 2:08 PM EDT us Rubens Terry MD LAB BLOOD ORDERABLES Final Re sult [facility] [address] [place] [address], * Chlamydia/Neisseria gonorrhoeae RNA (08/17/2018 2:00 PM EDT) Pathologist [facility] Chlamydia trachomatis RNA, TMA NOT DETECTED NOT DETECTED 08/18/2018 2:45 PM EDT [facility] Neisseria Gonorrhoeae RNA, TMA NOT DETECTED NOT DETECTED 08/18/2018 2:45 PM EDT [facility] Comment: This test was performed using the APTIMA COMBO2 Assay ([employer] The analytical performance characteristics of this assay, when used to test Sure[employer] specimens have been determined by [facility]. ?? Urine specimen (specimen) Voided urine specimen / Unknown 08/17/2018 2:00 PM EDT 08/17/2018 6:14 PM EDT Narrative JANETT JEREZ - 08/18/2018 2:45 PM EDT [facility] Received Date: us Rubens Terry MD LAB URINE ORDERABLES Final Re sult JANETT JEREZ [address], [place] [address], [place] [phone] [facility] [address], [place] [address], [place] [phone] from Last 3 Months or Most Recently Relevant to Health Maintenance [facility] Advance Directives * Full Code (Latest Code Status on File) Date Activated Date Inactivated Comments 08/14/2021 8:05 PM 08/15/2021 9:52 PM * Full Code Date Activated Date Inactivated Comments 09/12/2017 10:07 AM 09/12/2017 3:00 PM Care Teams Manager Security And Safety Relationship Specialty Start Date End Date Ed, [facility]-Attn: PCP - General 12/25/24
--- OUTSIDE RECORDS SUMMARY | 2025-04-07 22:57 | XMS_ITS | Encounter Summary ---
Author Organization [employer] Address [address] [place] [address] Care Team Providers Care Hris Analyst Name Role Phone Phani Lacey EDWARDS Primary Care Provider [phone] Provider, Not In System Primary Care Provider Un available Lacey Jeronimo GRACE Primary Care Provider [phone] Provider, Not In System Primary Care Provider Un available Reason for Visit * Reason Comments Med Refill Encounter Details Date Type Department Care Team (Late st Contact Info) Description 06/20/[address] [id number] Isaiah Suarez MD [address] [place] [address] [phone] Attention deficit hyperactivity disorder (ADHD), other type; Other chronic pain Social History Tobacco Use Types Packs/Day Years [...] with others, in a hotel, in a custodial, living outside on the street, on a [...] Recorded Patient Health Questionnaire-2 Score 6 04/04/2024 Sex and Gender Information Value Date Recorded Sex Assigned at Male 09/23/2022 5:36 PM EDT Legal Sex Male 5:36 PM EDT Gender Identity Transgender Female 03/22/2024 10 :10 AM EDT Sexual Orientation Lesbian or Fleming 03/22/2024 10 :11 AM EDT documented as of this encounter Miscellaneous Notes * Telephone Encounter - GRACE Hester - 06/21/2024 12:09 PM EDT duplicate documented in this encounter Plan of Treatment Not on file documented as of this encounter Visit Diagnoses Diagnosis Attention deficit hyperactivity disorder (ADHD), other type Other chronic pain documented in this encounter Additional Health Concerns Assessment Noted Time PHQ-9 Depression Total Score: 27 024 4:30 PM EDT documented as of this encounter Care Teams Hris Analyst Relationship Specialty Start Date End Date Lacey Jeronimo FNP [address] [place] [phone] PCP - General Family Medicine 06/05/24 11/10/24 Provider, Not In System PCP - General Family Medicine 11/11/24 01/20/25 Lacey Jeronimo FNP [address] [place] [phone] PCP - General Family Medicine 01/21/25 01/23/25 Provider, Not In System PCP - General Family Medicine 01/24/25 documented as of this encounter
--- OUTSIDE RECORDS SUMMARY | 2025-04-07 22:57 | XMS_ITS | Encounter Summary ---
Author Organization [facility] Address [address] [place] [address] Care Team Providers Care Hair Sample Matcher Name Role Phone Ed, [facility]-Attn: Primary Care Provider Unavailable Encounter Details Date Type Department Care Team (Late st Contact Info) Description 05/06/2022 Orders Only [facility] Interventional Radiology [address] [place] [phone] Deven Hodges MD [address] [place] [phone] Social History Tobacco Use Types Packs/Day Years [...] filedocumented in this encounter Additional Health Concerns Infection Onset Date Last Indicated Resolved Time COVID-19 - Suspected infection 08/20/2023 08/20/2023 08/20/2023 3:46 PM EDT COVID-19 - Suspected infection 08/20/2023 08/20/2023 08/21/2023 12:02 AM EDT documented as of this encounter Care Teams Hair Sample Matcher Relationship Specialty Start Date End Date Ed, [facility]-Attn: PCP - General 12/25/24 documented as of this encounter
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
--- OUTSIDE RECORDS SUMMARY | 2025-04-07 22:58 | XMS_ITS | Data Portability ---
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 Plan of Treatment Reminders Order Date Submit Date Provider Last Modified By Organization Details Last Modified Time Details Appointments None recorded. Lab HbA1c (hemoglobin A1c), blood [address] (Outpatient Registration) , [address] [place], [address], 5 07:53:49 lipid panel, serum [address] (Outpatient Registration) , [address] [place], [address], 5 07:53:49 CMP, serum or plasma [address] (Outpatient Registration) , [address] [place], [address], 5 14:43:02 25-hydroxyv itamin D2 + 25-hydroxyv itamin D3, QN, serum or plasma [address] (Outpatient Registration) , [address] [place], [address], 5 07:53:49 hepatitis C virus Ab, serum [address] (Outpatient Registration) , [address] [place], [address], 5 07:53:49 RPR (rapid plasma reagin), serum [address] (Outpatient Registration) , [address] [place], [address], 5 07:53:50 HBsAg (hepatitis B surface Ag), quantitativ e, serum [address] (Outpatient Registration) , [address] [place], [address], 5 07:53:50 chlamydia trachomatis + neisseria gonorrhoeae rRNA, QL, ROMEL+probe, urine [address] (Outpatient Registration) , [address] [place], [address], 5 07:53:50 HIV 1+2 AB + HIV 1 p24 Ag, qualitative immunoassay , serum [address] (Outpatient Registration) , [address] [place], [address], 5 07:53:50 TSH + free T4, serum [address] (Outpatient Registration) , [address] [place], [address], 5 07:53:49 CBC w/ auto diff 2022 023 [facility] (Outpatient Registration) , [address] [place], [address], 3 13:00:31 CMP, serum or plasma 2022 023 [facility] (Outpatient Registration) , [address] [place], [address], 3 13:31:03 lipase, serum or plasma 2022 023 [facility] (Outpatient Registration) , [address] [facility], [place], [address], 3 13:31:05 urinalysis, dipstick 2022 023 [email or web address] [facility], [address] [facility], [facility] [address], [place], [address], 3 13:32:08 Referral nutritionis t/dietitian referral [address] (Nutrition Services), [address] [place], [address], 5 11:18:57 bariatric surgery referral [email or web address] [place] [address] [facility], [address] [place] [address], [place], [address], 5 14:22:47 physical therapist referral - 23 yr old M, morbid obesity with left lumbar pain with radiculopat hy. no hx of injury or trauma 2023 024 [email or web address] [facility], [address] [facility], [place], [address], 5 08:34:33 medical weight loss program referral 2023 024 [email or web address] Gissell Montano MD, [address] [place], [address], 5 16:52:55 transgender health referral - 23 yr old transgender female request for expert evaluation and treatment. Please schedule and advise patient. Thank you! [address] Trans[facility], [address] [place], [address], 5 15:58:33 medical nutrition therapy referral 2022 023 Lola Hammond, [address] [place], [address], 3 07:15:03 Procedures None recorded. Surgeries None recorded. Imaging XR, ankle, 3 or more view 2022 023 [email or web address] [facility]), [address] [place], [address], 3 15:34:28 Medication Orders gabapentin 800 mg tablet 2023 024 [email or web address] 2 [facility] #[id number], [address] [place], [address], 4 08:06:08 Abilify 5 mg tablet 2023 024 2 [facility] #[id number], [address] [place], [address], 4 08:06:08 dicyclomine 10 mg capsule 2022 023 [id number], [address] [place], [place], [id number], 3 11:04:02 omeprazole 20 mg capsule,del ayed release 2022 023 [email or web address] [facility] #[id number], [address] [place], [place], [id number], 4 07:39:39 Patient TargetsNo targets recorded. Patient Instructions Encounter Date Encounter Id Patient Instructions Last Modified By Organization Details Last Modified Time 11/01/2024 [id number] I spent a total of 45 minutes on the date of encounter, which included: Preparing to see the patient (e.g., review of test results), Obtaining and/or reviewing separately obtained history Performing a medically appropriate exam and/or evaluation Ordering medications, tests, procedures Documenting clinical information in the health record [email or web address] Not available 11/03/2024 21:09:50 Reason for Referral Medical Nutrition Therapy Re ferral for Obesity Referring Physician: [facility], Encounter Date: 02/16/2023 Medical Weight Loss Program Referral for Obesity Referring Physician: [facility], Encounter Date: 11/01/2024 Physical Therapist Referral for Low back pain 23 yr old M, morbid obesity with left lumbar pain with radiculopathy. no hx of injury or trauma Referring Physician: [facility], Encounter Date: 11/01/2024 Transgender Health Referral for Hormonal requirement 23 yr old transgender female request for expert evaluation and treatment. Please schedule and advise patient. Thank you! Referring Physician: [facility], Encounter Date: 11/01/2024 Bariatric Surgery Referral f or Body mass index 30+ - obesity Referring Physician: Coleen Sabillon [facility], Encounter Date: 12/24/2024 Manuscripts Archivist/dietitian Refer ral for Insulin resistance Referring Physician: Coleen Sabillon [facility] Medicine, Encounter Date: 12/24/2024 Results Created Date Observation Date Name Description Value Unit Range Abnormal Flag Note LastModifiedBy Organization Detail LastModifiedTime 12/20/1912/20/2022 UA AND RFLX MICRO SCOPI C color urine YELLOW yellow Not Available [facility] Laboratory Department [address] [place], [address] 12/20/2022 10:59:36 12/20/1912/20/2022 UA AND RFLX MICRO SCOPI C appearance urine CLEAR clear Not Available [facility] Laboratory Department [address] [place], [address] 12/20/2022 10:59:36 12/20/1912/20/2022 UA AND RFLX MICRO SCOPI C specific gravity urine >=1.03 0 1.001- 1.035 abnormal Not Available [facility] Laboratory Department [address] [place], [address] 12/20/2022 10:59:36 12/20/19 23 12/20/2022 UA AND RFLX MICRO SCOPI C glucose urine UA NEGATI VE negati ve Not Available [facility] Laboratory Department [address] [place], [address] 12/20/2022 10:59:36 12/20/19 23 12/20/2022 UA AND RFLX MICRO SCOPI C bilirubin urine NEGATI VE negati ve Not Available [facility] Laboratory Department [address] [place], [address] 12/20/2022 10:59:36 12/20/19 23 12/20/2022 UA AND RFLX MICRO SCOPI C ketones urine NEGATI VE negati ve Not Available [facility] Laboratory Department [address] [place], [address] 12/20/2022 10:59:36 12/20/19 23 12/20/2022 UA AND RFLX MICRO SCOPI C urine hemoglobin NEGATI VE negati ve Not Available [facility] Laboratory Department [address] [place] [address], [address] 12/20/2022 10:59:36 12/20/19 23 12/20/2022 UA AND RFLX MICRO SCOPI C pH urine 5.0 5.0-8. 0 Not Available [facility] Laboratory Department [address] [place] [address], [address] 12/20/2022 10:59:36 12/20/19 23 12/20/2022 UA AND RFLX MICRO SCOPI C protein urine NEGATI VE mg/dL negati ve Not Available [facility] Laboratory Department [address] [place] [address], [address] 12/20/2022 10:59:36 12/20/19 23 12/20/2022 UA AND RFLX MICRO SCOPI C urobilinogen urine 0.2 mg/dL 0.2-1. 0 Not Available [facility] Laboratory Department [address] [place] [address], [address] 12/20/2022 10:59:36 12/20/1912/20/2022 UA AND RFLX MICRO SCOPI C nitrite urine NEGATI VE negati ve Not Available [facility] Laboratory Department [address] [place], [address] 12/20/2022 10:59:36 12/20/19 23 12/20/2022 UA AND RFLX MICRO SCOPI C leukocyte esterase urine NEGATI VE negati ve Not Available [facility] Laboratory Department [address] [place], [address] 12/20/2022 10:59:36 12/20/1912/20/2022 B TYPE NATRI URETI C PEPTI DE PRO B type natriuretic peptide pro 10.4 pg/mL 5-125 normal Not Available [facility] Laboratory Department [address] [place], [address] 12/20/2022 11:22:30 12/20/1912/20/2022 PSA,T OTAL (FREE >4AND <10) PSA,total (free>4and<1 0) 0.44 NG/mL 0.0-4. 0 normal Not Available [facility] Laboratory Department [address] [place] [address], [address] 12/20/2022 16:22:32 12/20/1912/20/2022 URINE CULTU RE results ----- ----- ----- ----- ----- ----- ----- ----- ----- ----- ----- ----- ----- ----- ----- ----- ----- ----- -- RUN DATE: 12/21 Greg villeda *Live * - LAB PAGE 1 RUN TIME: 737 Speci men Inqui ry ----- ----- ----- ----- ----- ----- ----- ----- ----- ----- ----- ----- ----- ----- ----- ----- ----- ----- -- PATIE NT: Richy Bo ACCT: [id number] LOC: ОЛЕГ BARRIOS U: [id number] AGE/S X: 22/M ROOM: RE12/[address]: Venus fatima : 11/26 BED: DIS: STATU S: DEP CLI TLOC: ----- ----- ----- ----- ----- ----- ----- ----- ----- ----- ----- ----- ----- ----- ----- ----- ----- ----- -- SPEC #: [id number] [id number] NORBERTO: 12/20 032 STATU S: COMP REQ #: [id number] RECD: 12/[address]: Venus fatima SOURC E: Urine CC ENTR: 12/[address]: Alondra DURÁN C: ORDER ED: Urine Cultu re ACT WKST: CULT 12/21 #1 ----- ----- ----- ----- ----- ----- ----- ----- ----- ----- ----- ----- ----- ----- ----- ----- ----- ----- -- Proce dure Resul t ----- ----- ----- ----- ----- ----- ----- ----- ----- ----- ----- ----- ----- ----- ----- ----- ----- ----- -- Urine Cultu re Final Repor t Resul t Mixed uroge nital chaz isola sherwin Colon y Count 2,000 CFU/m l ----- ----- ----- ----- ----- ----- ----- ----- ----- ----- ----- ----- ----- ----- ----- ----- ----- ----- -- END OF REPOR T Not Available [facility] Laboratory Department [address] [facility], [place], [address] 12/21/2022 07:38:45 01/10/20 23 01/10/2023 urina lysis , dipst ick Urobilinogen Normal Not [facility] [address] [address], [place], [address], 01/10/2023 12:31:41 01/10/20 23 01/10/2023 urina lysis , dipst ick Bilirubin negati ve Not Available [facility] [address] [address], [place], [address], 01/10/2023 12:31:41 01/10/20 23 01/10/2023 urina lysis , dipst ick Protein negati ve Not Available [facility] [address] [address], [place], [address], 01/10/2023 12:31:41 01/10/20 23 01/10/2023 urina lysis , dipst ick Nitrite negati ve Not Available [facility] [address] [address], [place], [address], 01/10/2023 12:31:41 01/10/20 23 01/10/2023 urina lysis , dipst ick Ketones negati ve Not Available [facility] [address] [address], [place], [address], 01/10/2023 12:31:41 01/10/20 23 01/10/2023 urina lysis , dipst ick Glucose negati ve Not Available [facility] [address], [place], [address], 01/10/2023 12:31:41 01/10/20 23 01/10/2023 urina lysis , dipst ick PH 6.5 Not [facility] [address] [address], [place], [address], 01/10/2023 12:31:41 01/10/20 23 01/10/2023 urina lysis , dipst ick Specific [place] 1.020 Not Available [facility] [address], [place], [address], 01/10/2023 12:31:41 01/10/20 23 01/10/2023 urina lysis , dipst ick Leukocytes negati ve Not Available [facility] [address] [address], [place], [address], 01/10/2023 12:31:41 01/10/20 23 01/10/2023 urina lysis , dipst ick Blood Negati ve Not Available [facility] [address] [address], [place], [address], 01/10/2023 12:31:41 01/10/20 23 01/10/2023 urina lysis , dipst ick Appearance: clear Not Available [facility] [address] [address], [place], [address], 01/10/2023 12:31:41 01/10/20 23 01/10/2023 urina lysis , dipst ick Color Pale Yellow Not Available [facility] [address] [address], [place], [address], 01/10/2023 12:31:41 01/10/20 23 01/10/2023 urina lysis , dipst ick Lot #: [id number] Not Available [facility] [address] [address], [place], [address], 01/10/2023 12:31:41 01/10/20 23 01/10/2023 urina lysis , dipst ick Exp Date: 4 Not Available [facility] [address] [address], [place], [address], 01/10/2023 12:31:41 03/16/20 23 02/09/2023 COMPL ETE BLOOD COUNT AUTO DIFF white blood count 11.28 K/uL 3.5-11 .0 high Not Available [facility] Laboratory Department [address] [place] [address], [address] 02/09/2023 13:00:31 02/10/20 23 02/09/2023 COMPL ETE BLOOD COUNT AUTO DIFF red blood count 5.39 M/uL 3.90-5 .50 normal Not Available [facility] Laboratory Department [address] [place] [address], [address] 02/09/2023 13:00:31 02/10/20 23 02/09/2023 COMPL ETE BLOOD COUNT AUTO DIFF hemoglobin 15.7 g/dL 14.0-1 8.0 normal Not Available [facility] Laboratory Department [address] [place] [address], [address] 02/09/2023 13:00:31 02/10/20 23 02/09/2023 COMPL ETE BLOOD COUNT AUTO DIFF hematocrit 47.3 % 42.0-5 4.0 normal Not Available [facility] Laboratory Department [address] [place] [address], [address] 02/09/2023 13:00:31 02/10/20 23 02/09/2023 COMPL ETE BLOOD COUNT AUTO DIFF mean corpuscular volume 87.8 fL 80.0-1 00.0 normal Not Available [facility] Laboratory Department [address] [place] [address], [address] 02/09/2023 13:00:31 02/10/20 23 02/09/2023 COMPL ETE BLOOD COUNT AUTO DIFF mean corpuscular hemoglobin 29.1 pg 25.4-3 4.6 normal Not Available [facility] Laboratory Department [address] [place] [address], [address] 02/09/2023 13:00:31 02/10/20 23 02/09/2023 COMPL ETE BLOOD COUNT AUTO DIFF mean corpuscular HGB conc 33.2 g/dL 31.0-3 7.0 normal Not Available [facility] Laboratory Department [address] [place] [address], [address] 02/09/2023 13:00:31 02/10/20 23 02/09/2023 COMPL ETE BLOOD COUNT AUTO DIFF red cell distribution width 13.6 % 11.5-1 4.5 normal Not Available [facility] Laboratory Department [address] [place] [address], [address] 02/09/2023 13:00:31 02/10/20 23 02/09/2023 COMPL ETE BLOOD COUNT AUTO DIFF platelet count 337 K/uL 150-40 0 normal Not Available [facility] Laboratory Department [address] [place] [address], [address] 02/09/2023 13:00:31 02/10/20 23 02/09/2023 COMPL ETE BLOOD COUNT AUTO DIFF neutrophils percent auto 58.5 % 35.0-6 6.0 normal Not Available [facility] Laboratory Department [address] [place] [address], [address] 02/09/2023 13:00:31 02/10/20 23 02/09/2023 COMPL ETE BLOOD COUNT AUTO DIFF lymphocytes percent auto 28.5 % 25.0-4 5.0 normal Not Available [facility] Laboratory Department [address] [place] [address], [address] 02/09/2023 13:00:31 02/10/20 23 02/09/2023 COMPL ETE BLOOD COUNT AUTO DIFF monocytes percent auto 6.6 % 0.0-13 .0 normal Not Available [facility] Laboratory Department [address] [place] [address], [address] 02/09/2023 13:00:31 02/10/20 23 02/09/2023 COMPL ETE BLOOD COUNT AUTO DIFF eosinophils percent auto 6.1 % 0.0-8. 0 normal Not Available [facility] Laboratory Department [address] [place] [address], [address] 02/09/2023 13:00:31 02/10/20 23 02/09/2023 COMPL ETE BLOOD COUNT AUTO DIFF basophils percent auto 0.3 % 0.0-1. 0 normal Not Available [facility] Laboratory Department [address] [place] [address], [address] 02/09/2023 13:00:31 02/10/20 23 02/09/2023 COMPL ETE BLOOD COUNT AUTO DIFF neutrophils absolute auto 6.59 K/uL 1.5-7. 5 normal Cauti on: Inter preta tion of ANC resul ts witho ut inclu amelia of the WBC diffe renti al resul ts may lead to isaias eous diagn osis; for examp le, katelynn ng myelo proli ferat sade or lymph oprol ifera tive disor ders. Not Available [facility] Laboratory Department [address] [place], [address] 02/09/2023 13:00:31 02/10/20 23 02/09/2023 COMPL ETE BLOOD COUNT AUTO DIFF lymphocytes absolute auto 3.22 K/uL 0.8-4. 8 normal Not Available [facility] Laboratory Department [address] [place] [address], [address] 02/09/2023 13:00:31 02/10/20 23 02/09/2023 COMPL ETE BLOOD COUNT AUTO DIFF monocytes absolute auto 0.75 K/uL 0.4-1. 3 normal Not Available [facility] Laboratory Department [address] [place] [address], [address] 02/09/2023 13:00:31 02/10/20 23 02/09/2023 COMPL ETE BLOOD COUNT AUTO DIFF eosinophils absolute auto 0.69 K/uL 0.0-0. 8 normal Not Available [facility] Laboratory Department [address] [place] [address], [address] 02/09/2023 13:00:31 02/10/20 23 02/09/2023 COMPL ETE BLOOD COUNT AUTO DIFF basophils absolute auto 0.03 K/uL 0.0-0. 6 normal Not Available [facility] Laboratory Department [address] [place] [address], [address] 02/09/2023 13:00:31 02/10/20 23 02/09/2023 B TYPE NATRI URETI C PEPTI DE PRO B type natriuretic peptide pro 5.4 pg/mL 5-125 normal Not Available [facility] Laboratory Department [address] [place] [address], [address] 02/09/2023 13:19:20 02/10/20 23 02/09/2023 COMPR EHENS SADE MET. PANEL sodium 139 mmol/ L 136-14 5 normal Not Available [facility] Laboratory Department [address] [place] [address], [address] 02/09/2023 13:31:03 02/10/20 23 02/09/2023 COMPR EHENS SADE MET. PANEL potassium 3.9 mmol/ L 3.5-5. 1 normal Not Available [facility] Laboratory Department [address] [place] [address], [address] 02/09/2023 13:31:03 02/10/20 23 02/09/2023 COMPR EHENS SADE MET. PANEL chloride 103 mmol/ L 98-107 normal Not Available [facility] Laboratory Department [address] [place], [address] 02/09/2023 13:31:03 02/10/20 23 02/09/2023 COMPR EHENS SADE MET. PANEL carbon dioxide 24.9 mmol/ L 22-29 normal Not Available [facility] Laboratory Department [address] [place], [address] 02/09/2023 13:31:03 02/10/20 23 02/09/2023 COMPR EHENS SADE MET. PANEL anion gap 15 mmol/ L 10-20 normal Not Available [facility] Laboratory Department [address] [place], [address] 02/09/2023 13:31:03 02/10/20 23 02/09/2023 COMPR EHENS SADE MET. PANEL blood urea nitrogen 10 mg/dL 6-20 normal Not Available [facility] Laboratory Department [address] [place], [address] 02/09/2023 13:31:03 02/10/20 23 02/09/2023 COMPR EHENS SADE MET. PANEL creatinine 0.65 mg/dL 0.70-1 .2 low Not Available [facility] Laboratory Department [address] [place], [address] 02/09/2023 13:31:03 02/10/20 23 02/09/2023 COMPR EHENS SADE MET. PANEL eglomerular filtration rate > 90 GFR Value : ml/mi n/1.7 3 squar e meter s * If patie nt is Afric an-Am miri n, multi ply resul t by 1.159 Chron ic Kidne y Disea se is defin ed as less than 60 ml/mi n/1.7 3 squar e meter s. Kidne y failu re is less than 15 ml/mi n/1.7 3 squar e meter s Test is not perfo rmed on patie nts under the age of 18 Not Available [facility] Laboratory Department [address] [place], [address] 02/09/2023 13:31:03 02/10/20 23 02/09/2023 COMPR EHENS SADE MET. PANEL glucose 123 mg/dL 70-106 high Not Available [facility] Laboratory Department [address] [place], [address] 02/09/2023 13:31:03 02/10/20 23 02/09/2023 COMPR EHENS SADE MET. PANEL calcium 8.8 mg/dL 8.4-10 .3 normal Not Available [facility] Laboratory Department [address] [place] [address], [address] 02/09/2023 13:31:03 02/10/20 23 02/09/2023 COMPR EHENS SADE MET. PANEL bilirubin total 0.3 mg/dL 0.2-1. 2 normal Not Available [facility] Laboratory Department [address] [place] [address], [address] 02/09/2023 13:31:03 02/10/20 23 02/09/2023 COMPR EHENS SADE MET. PANEL aspartate amino transferase 23 U/L 5-40 normal Not Available [facility] Laboratory Department [address] [place] [address], [address] 02/09/2023 13:31:03 02/10/20 23 02/09/2023 COMPR EHENS SADE MET. PANEL alanine aminotransfe rase 32 U/L 5-41 normal Not Available [facility] Laboratory Department [address] [place], [address] 02/09/2023 13:31:03 02/10/20 23 02/09/2023 COMPR EHENS SADE MET. PANEL total protein 7.2 g/dL 6.4-8. 3 normal Not Available [facility] Laboratory Department [address] [place] [address], [address] 02/09/2023 13:31:03 02/10/20 23 02/09/2023 COMPR EHENS SADE MET. PANEL albumin level 3.9 g/dL 3.5-5. 2 normal Not Available [facility] Laboratory Department [address] [place] [address], [address] 02/09/2023 13:31:03 02/10/20 23 02/09/2023 COMPR EHENS SADE MET. PANEL globulin 3.3 gm/dL 2.0-3. 5 normal Not Available [facility] Laboratory Department [address] [place] [address], [address] 02/09/2023 13:31:03 02/10/20 23 02/09/2023 COMPR EHENS SADE MET. PANEL albumin globulin ratio 1.2 % 1.1-2. 5 normal Not Available [facility] Laboratory Department [address] [place], [address] 02/09/2023 13:31:03 02/10/20 23 02/09/2023 COMPR EHENS SADE MET. PANEL alkaline phosphatase 57 U/L 40-129 normal Not Available [facility] Laboratory Department [address] [place], [address] 02/09/2023 13:31:03 02/10/20 23 02/09/2023 LIPAS E lipase 12 U/L 13-60 low Not Available [facility] Laboratory Department [address] [place] [address], [address] 02/09/2023 13:31:05 02/10/20 23 02/09/2023 PSA,T OTAL (FREE >4AND <10) PSA,total (free>4and<1 0) 0.24 NG/mL 0.0-4. 0 normal Not Available [facility] Laboratory Department [address] [place], [address] 02/09/2023 20:26:46 06/25/20 23 06/25/2023 UA + MICRO (DO NOT ORDER ) color urine Yellow yellow Not Available [facility] Department [address] [place] [address], [address] 06/25/2023 18:53:07 06/25/20 23 06/25/2023 UA + MICRO (DO NOT ORDER ) appearance urine Clear clear Not Available [facility] Department [address] [place], [address] 06/25/2023 18:53:07 06/25/20 23 06/25/2023 UA + MICRO (DO NOT ORDER ) specific gravity urine 1.025 1.001- 1.035 Not Available [facility] Laboratory Department [address] [place], [address] 06/25/2023 18:53:07 06/25/20 23 06/25/2023 UA + MICRO (DO NOT ORDER ) glucose urine UA Negati ve negati ve Not Available [facility] Laboratory Department [address] [place] [address], [address] 06/25/2023 18:53:07 06/25/20 23 06/25/2023 UA + MICRO (DO NOT ORDER ) bilirubin urine Negati ve negati ve Not Available [facility] Laboratory Department [address] [place], [address] 06/25/2023 18:53:07 06/25/20 23 06/25/2023 UA + MICRO (DO NOT ORDER ) ketones urine Negati ve negati ve Not Available [facility] [facility] Department [address] [place] [address], [id number] 06/25/2023 18:53:07 06/25/20 23 06/25/2023 UA + MICRO (DO NOT ORDER ) urine hemoglobin Trace- intact negati ve abnormal Not Available [facility] Department [address] [place] [address], [id number] 06/25/2023 18:53:07 06/25/2006/25/2023 UA + MICRO (DO NOT ORDER ) pH urine 6.0 5.0-8. 0 Not Available [facility] Department [address] [place] [address], 76170 06/25/2023 18:53:07 06/25/20 23 06/25/2023 UA + MICRO (DO NOT ORDER ) protein urine Negati ve mg/dL negati ve Not Available [facility] Department [address] [place] [address], 81226 06/25/2023 18:53:07 06/25/20 23 06/25/2023 UA + MICRO (DO NOT ORDER ) urobilinogen urine 0.2 mg/dL 0.2-1. 0 Not Available [facility] Department [address] [place] [address], 56527 06/25/2023 18:53:07 06/25/20 23 06/25/2023 UA + MICRO (DO NOT ORDER ) nitrite urine Negati ve negati ve Not Available [facility] Department [address] [place] [address], 62210 06/25/2023 18:53:07 06/25/2006/25/2023 UA + MICRO (DO NOT ORDER ) leukocyte esterase urine Negati ve negati ve Not Available [facility] Department [address] [place] [address], 30162 06/25/2023 18:53:07 06/25/20 23 06/25/2023 UA + MICRO (DO NOT ORDER ) RBC urine 0-2 Not Available [facility] Department [address] [place], [address] 06/25/2023 18:53:06/25/2006/25/2023 URINE CULTU RE results ----- ----- ----- ----- ----- ----- ----- ----- ----- ----- ----- ----- ----- ----- ----- ----- ----- ----- -- RUN DATE: 06/27 Greg villeda *Live * - LAB PAGE 1 RUN TIME: 0650 Speci men Inqui ry ----- ----- ----- ----- ----- ----- ----- ----- ----- ----- ----- ----- ----- ----- ----- ----- ----- ----- -- PATIE NT: Richy Bo ACCT: [id number] LOC: KATI Mukherjee U: [id number] AGE/S X: 22/M ROOM: RE06/[address]: David Cortes : [birth year]26 BED: DIS: STATU S: LEANDER MARTINEZ TLOC: ----- ----- ----- ----- ----- ----- ----- ----- ----- ----- ----- ----- ----- ----- ----- ----- ----- ----- -- SPEC #: [id number] [id number] NORBERTO: 06/25- 827 STATU S: COMP REQ #: [id number] RECD: 06/25- [address]: Stephen Albrecht [facility] E: José Miguel martin ENTR: 06/25-[address]: Alondra DURÁN C: ORDER ED: Urine Cultu re ----- ----- ----- ----- ----- ----- ----- ----- ----- ----- ----- ----- ----- ----- ----- ----- ----- ----- -- Proce dure Resul t ----- ----- ----- ----- ----- ----- ----- ----- ----- ----- ----- ----- ----- ----- ----- ----- ----- ----- -- Urine Cultu re Final Colon y Count : <1,00 0 col/m L No Growt h ----- ----- ----- ----- ----- ----- ----- ----- ----- ----- ----- ----- ----- ----- ----- ----- ----- ----- -- END OF REPOR T Not Available [facility] Department [address] [place] [address], 13056 06/27/2023 06:50:34 06/25/2006/29/2023 CHLAM YDIA/ GC (NAAT ) URINE chlamydia (naat) urine Negati ve negati ve Not Available [facility] Department [address] [place] [address], 74688 06/29/2023 10:18:36 06/25/2006/29/2023 CHLAM YDIA/ GC (NAAT ) URINE N. gonorrhoeae (naat) urine Negati ve negati ve Not Available [facility] Department [address] [place] [address], 13067 06/29/2023 10:18:36 02/29/20 24 02/29/2024 COMPL ETE BLOOD COUNT AUTO DIFF white blood count 11.88 K/uL 3.5-11 .0 high Not Available [facility] Department [address] [place] [address], 01894 02/29/2024 21:28:03 02/29/20 24 02/29/2024 COMPL ETE BLOOD COUNT AUTO DIFF red blood count 5.03 M/uL 3.90-5 .50 normal Not Available [facility] Department [address] [place] [address], 30044 02/29/2024 21:28:03 02/29/20 24 02/29/2024 COMPL ETE BLOOD COUNT AUTO DIFF hemoglobin 15.0 g/dL 14.0-1 8.0 normal Not Available [facility] Department [address] [place] [address], [id number] 02/29/2024 21:28:03 02/29/20 24 02/29/2024 COMPL ETE BLOOD COUNT AUTO DIFF hematocrit 45.4 % 42.0-5 4.0 normal Not Available [facility] Department [address] [place] [address], [id number] 02/29/2024 21:28:03 02/29/20 24 02/29/2024 COMPL ETE BLOOD COUNT AUTO DIFF mean corpuscular volume 90.3 fL 80.0-1 00.0 normal Not Available [facility] Department [address] [place] [address], 81088 02/29/2024 21:28:03 02/29/20 24 02/29/2024 COMPL ETE BLOOD COUNT AUTO DIFF mean corpuscular hemoglobin 29.8 pg 25.4-3 4.6 normal Not Available [facility] Department [address] [place] [address], 89437 02/29/2024 21:28:03 02/29/20 24 02/29/2024 COMPL ETE BLOOD COUNT AUTO DIFF mean corpuscular HGB conc 33.0 g/dL 31.0-3 7.0 normal Not Available [facility] Department [address] [place] [address], [id number] 02/29/2024 21:28:03 02/29/20 24 02/29/2024 COMPL ETE BLOOD COUNT AUTO DIFF red cell distribution width 12.6 % 11.5-1 4.5 normal Not Available [facility] Department [address] [place], [address] 02/29/2024 21:28:03 02/29/20 24 02/29/2024 COMPL ETE BLOOD COUNT AUTO DIFF platelet count 349 K/uL 150-40 0 normal Not Available [facility] Department [address] [place] [address], 65951 02/29/2024 21:28:03 02/29/20 24 02/29/2024 COMPL ETE BLOOD COUNT AUTO DIFF neutrophils percent auto 63.3 % 35.0-6 6.0 normal Not Available [facility] Department [address] [place] [address], 17529 02/29/2024 21:28:03 02/29/20 24 02/29/2024 COMPL ETE BLOOD COUNT AUTO DIFF lymphocytes percent auto 29.2 % 25.0-4 5.0 normal Not Available [facility] Department [address] [place] [address], 64931 02/29/2024 21:28:03 02/29/20 24 02/29/2024 COMPL ETE BLOOD COUNT AUTO DIFF monocytes percent auto 5.0 % 0.0-13 .0 normal Not Available [facility] Department [address] [place] [address], 19389 02/29/2024 21:28:03 02/29/20 24 02/29/2024 COMPL ETE BLOOD COUNT AUTO DIFF eosinophils percent auto 2.2 % 0.0-8. 0 normal Not Available [facility] Department [address] [place] [address], 01638 02/29/2024 21:28:03 02/29/20 24 02/29/2024 COMPL ETE BLOOD COUNT AUTO DIFF basophils percent auto 0.3 % 0.0-1. 0 normal Not Available [facility] Department [address] [place] [address], 97152 02/29/2024 21:28:03 02/29/20 24 02/29/2024 COMPL ETE BLOOD COUNT AUTO DIFF neutrophils absolute auto 7.53 K/uL 1.5-7. 5 high Not Available [facility] Department [address] [place] [address], 67725 02/29/2024 21:28:03 02/29/20 24 02/29/2024 COMPL ETE BLOOD COUNT AUTO DIFF lymphocytes absolute auto 3.47 K/uL 0.8-4. 8 normal Not Available [facility] Department [address] [place] [address] [place], [address] 02/29/2024 21:28:03 02/29/20 24 02/29/2024 COMPL ETE BLOOD COUNT AUTO DIFF monocytes absolute auto 0.59 K/uL 0.4-1. 3 normal Not Available [facility] Department [address] [place] [address] [place], [address] 02/29/2024 21:28:03 02/29/20 24 02/29/2024 COMPL ETE BLOOD COUNT AUTO DIFF eosinophils absolute auto 0.26 K/uL 0.0-0. 8 normal Not Available [facility] Department [address] [place] [address] [place], [address] 02/29/2024 21:28:03 02/29/20 24 02/29/2024 COMPL ETE BLOOD COUNT AUTO DIFF basophils absolute auto 0.03 K/uL 0.0-0. 6 normal Not Available [facility] Department [address] [place] [address], [address] 02/29/2024 21:28:03 02/29/20 24 02/29/2024 BASIC METAB OLIC PANEL sodium 137 mmol/ L 136-14 5 normal Not Available [facility] Department [address] [place] [address] [place], [address] 02/29/2024 21:51:06 02/29/20 24 02/29/2024 BASIC METAB OLIC PANEL potassium 3.8 mmol/ L 3.5-5. 1 normal Not Available [facility] Department [address] [place] [address], [address] 02/29/2024 21:51:06 02/29/20 24 02/29/2024 BASIC METAB OLIC PANEL chloride 101 mmol/ L 98-107 normal Not Available [facility] Department [address] [place], [place] [address], [address] 02/29/2024 21:51:06 02/29/20 24 02/29/2024 BASIC METAB OLIC PANEL carbon dioxide 23.9 mmol/ L 22-29 normal Not Available [facility] Department [address] [place] [address] [place], [address] 02/29/2024 21:51:06 02/29/20 24 02/29/2024 BASIC METAB OLIC PANEL anion gap 16 mmol/ L 10-20 normal Not Available [facility] [address] [place], [address] 02/29/2024 21:51:06 02/29/20 24 02/29/2024 BASIC METAB OLIC PANEL blood urea nitrogen 11 mg/dL 6-20 normal Not Available [facility] Department [address] [place], [address] 02/29/2024 21:51:06 02/29/20 24 02/29/2024 BASIC METAB OLIC PANEL creatinine 0.78 mg/dL 0.70-1 .2 normal Not Available [facility] Department [address] [place], [address] 02/29/2024 21:51:06 02/29/2002/29/2024 BASIC METAB OLIC PANEL estimated glomerular filt rate 130 GFR Value : mL/mi n/1.7 3 squar e meter s Calcu latio n: CKD-E PI Creat inine Equat ion (2020 ) Chron ic Kidne y Disea se is defin ed as eithe r of the follo wing prese nt for >= 3 month s: - GFR less than 60 mL/mi n/1.7 3 squar e meter s. - Micro album in:Ur . Creat inine Ratio >= 30 mg/g or other marke rs of ronn y damag e Kidne y failu re is less than 15 mL/mi n/1.7 3 squar e meter s This test is not perfo rmed in patie nts under the age of 18. Not Available [facility] Department [address] [facility] [place], [address] 02/29/2024 21:51:06 02/29/20 24 02/29/2024 BASIC METAB OLIC PANEL glucose 118 mg/dL 70-106 high Not Available [facility] Department [address] [place], [address] 02/29/2024 21:51:06 02/29/20 24 02/29/2024 BASIC METAB OLIC PANEL calcium 9.1 mg/dL 8.4-10 .3 normal Not Available [facility] Department [address] [place], [address] 02/29/2024 21:51:06 02/29/20 24 02/29/2024 SALIC YLATE salicylate < 0.5 mg/dL 15-30 low Not Available [facility] Department [address] [place] [address], 35842 02/29/2024 21:51:06 02/29/20 24 02/29/2024 ACETA [facility] acetaminophe n lab < 15 ug/mL 15-30 low Not Available [facility] Department [address] [place] [address], 98093 02/29/2024 21:51:07 02/29/20 24 02/29/2024 RACHAEL OL ethanol < 10 mg/dL This resul t is below the linea rity of the instr ument and shoul d be consi dered indis tingu ishab le from zero. REFER ENCE RANGE : NONE DETEC SHERWIN No refer ence range is avail able for deter minat ion of clini chloe intox icati on. Not Available [facility] Department [address] [place] [address], 84417 02/29/2024 21:51:07 03/01/20 24 03/01/2024 DRUG SCREE N URINE opiate screen urine Negati ve negati ve Not Available [facility] Department [address] [place] [address], 78513 03/01/2024 09:14:44 03/01/20 24 03/01/2024 DRUG SCREE N URINE barbiturates , urine Negati ve negati ve Not Available [facility] Department [address] [place] [address], 79711 03/01/2024 09:14:44 03/01/20 24 03/01/2024 DRUG SCREE N URINE phencyclidin e screen urine Negati ve negati ve Not Available [facility] Department [address] [place] [address], 94912 03/01/2024 09:14:44 03/01/20 24 03/01/2024 DRUG SCREE N URINE amphetamine screen urine Negati ve negati ve Not Available [facility] Department [address] [place] [address], 84618 03/01/2024 09:14:44 03/01/20 24 03/01/2024 DRUG SCREE N URINE benzodiazepi shira screen urine Negati ve negati ve Not Available [facility] Department [address] [place] [address], 25455 03/01/2024 09:14:44 03/01/20 24 03/01/2024 DRUG SCREE N URINE cocaine screen urine Negati ve negati ve Not Available [facility] Department [address] [place] [address], 17489 03/01/2024 09:14:44 03/01/20 24 03/01/2024 DRUG SCREE N URINE cannabinoid screen urine Negati ve negati ve Not Available [facility] Department [address] [place] [address], 14057 03/01/2024 09:14:44 03/01/20 24 03/01/2024 DRUG SCREE N URINE methadone screen, urine Negati ve negati ve Not Available [facility] Department [address] [place] [address], 73569 03/01/2024 09:14:44 03/01/20 24 03/01/2024 DRUG SCREE N URINE propoxyphene urine screen Negati ve negati ve Not Available [facility] Department [address] [place] [address], 75980 03/01/2024 09:14:44 03/01/20 24 03/01/2024 DRUG SCREE N URINE oxycodone urine screen Negati ve negati ve Not Available [facility] Department [address] [place] [address], 05332 03/01/2024 09:14:44 03/01/20 24 03/01/2024 DRUG SCREE N URINE ur drug screen interpretati on See Commen ts Testi ng Thres holds are as follo ws: Ampth etami shira 500 ng/mL Benzo diaze pines 100 ng/mL Propo xyphe ne 300 ng/mL Meghna turat es 200 ng/mL Metha done 300 ng/mL PCP/m etabo lites 25 ng/mL Cocai ne/me tabol ites 300 ng/mL Canna binoi ds 50 ng/ml Opiat e Class 300 ng/mL Oxyco done Class 100 ng/mL A Negat sade test resul t indic ates that this ana te is eithe r not prese nt, OR is prese nt at level s below the cutof f thres hold of this test. A Posit sade resul t from the assay indic ates only the prese nce of the ana te and does not neces shayna y joseluis late with the exten t of physi ologi chloe and psych ologi chloe effec ts. Alicia cleveland Note: This is a scree rosette metho d only. This speci men will not be autom atica lly sent out to a refer ence labor atory for any confi rmati on testi ng. If the provi vonnie needs confi rmati on testi ng, Alicia cleveland call the labor atory withi n [address] fur er testi ng. Not Available [facility] Department [address] [place] [address], 48775 03/01/2024 09:14:44 09/10/2009/10/2024 COMPL ETE BLOOD COUNT AUTO DIFF white blood count 14.21 K/uL 3.5-11 .0 high Not Available [facility] Department [address] [place] [address], 10503 09/10/2024 22:46:42 09/10/2009/10/2024 COMPL ETE BLOOD COUNT AUTO DIFF red blood count 5.12 M/uL 3.90-5 .50 normal Not Available [facility] Department [address] [place] [address], 56372 09/10/2024 22:46:42 09/10/2009/10/2024 COMPL ETE BLOOD COUNT AUTO DIFF hemoglobin 15.0 g/dL 14.0-1 8.0 normal Not Available [facility] Department [address] [place] [address], 60563 09/10/2024 22:46:42 09/10/2009/10/2024 COMPL ETE BLOOD COUNT AUTO DIFF hematocrit 44.8 % 42.0-5 4.0 normal Not Available [facility] Department [address] [place] [address], 86878 09/10/2024 22:46:42 09/10/2009/10/2024 COMPL ETE BLOOD COUNT AUTO DIFF mean corpuscular volume 87.5 fL 80.0-1 00.0 normal Not Available [facility] Department [address] [place] [address], 94571 09/10/2024 22:46:42 09/10/2009/10/2024 COMPL ETE BLOOD COUNT AUTO DIFF mean corpuscular hemoglobin 29.3 pg 25.4-3 4.6 normal Not Available [facility] Department [address] [place] [address], 02936 09/10/2024 22:46:42 09/10/20 24 09/10/2024 COMPL ETE BLOOD COUNT AUTO DIFF mean corpuscular HGB conc 33.5 g/dL 31.0-3 7.0 normal Not Available [facility] Department [address] [place] [address], 13778 09/10/2024 22:46:42 09/10/20 24 09/10/2024 COMPL ETE BLOOD COUNT AUTO DIFF red cell distribution width 13.6 % 11.5-1 4.5 normal Not Available [facility] Department [address] [place] [address], 17930 09/10/2024 22:46:42 09/10/20 24 09/10/2024 COMPL ETE BLOOD COUNT AUTO DIFF platelet count 372 K/uL 150-40 0 normal Not Available [facility] Department [address] [place] [address], 60944 09/10/2024 22:46:42 09/10/20 24 09/10/2024 COMPL ETE BLOOD COUNT AUTO DIFF neutrophils percent auto 68.6 % 35.0-6 6.0 high Not Available [facility] Department [address] [place] [address], 46374 09/10/2024 22:46:42 09/10/20 24 09/10/2024 COMPL ETE BLOOD COUNT AUTO DIFF lymphocytes percent auto 20.9 % 25.0-4 5.0 low Not Available [facility] Department [address] [place] [address], 72199 09/10/2024 22:46:42 09/10/20 24 09/10/2024 COMPL ETE BLOOD COUNT AUTO DIFF monocytes percent auto 7.0 % 0.0-13 .0 normal Not Available [facility] Department [address] [place] [address], 46949 09/10/2024 22:46:42 09/10/20 24 09/10/2024 COMPL ETE BLOOD COUNT AUTO DIFF eosinophils percent auto 3.2 % 0.0-8. 0 normal Not Available [facility] Department [address] [place] [address], 01878 09/10/2024 22:46:42 09/10/20 24 09/10/2024 COMPL ETE BLOOD COUNT AUTO DIFF basophils percent auto 0.3 % 0.0-1. 0 normal Not Available [facility] Department [address] [place], [address] 09/10/2024 22:46:42 09/10/20 24 09/10/2024 COMPL ETE BLOOD COUNT AUTO DIFF neutrophils absolute auto 9.75 K/uL 1.5-7. 5 high Not Available [facility] Department [address] [place] [address], 07914 09/10/2024 22:46:42 09/10/20 24 09/10/2024 COMPL ETE BLOOD COUNT AUTO DIFF lymphocytes absolute auto 2.97 K/uL 0.8-4. 8 normal Not Available [facility] Department [address] [place] [address], 30206 09/10/2024 22:46:42 09/10/20 24 09/10/2024 COMPL ETE BLOOD COUNT AUTO DIFF monocytes absolute auto 0.99 K/uL 0.4-1. 3 normal Not Available [facility] Department [address] [place], [address] 09/10/2024 22:46:42 09/10/20 24 09/10/2024 COMPL ETE BLOOD COUNT AUTO DIFF eosinophils absolute auto 0.46 K/uL 0.0-0. 8 normal Not Available [facility] Department [address] [place] [address], 62983 09/10/2024 22:46:42 09/10/20 24 09/10/2024 COMPL ETE BLOOD COUNT AUTO DIFF basophils absolute auto 0.04 K/uL 0.0-0. 6 normal Not Available [facility] Department [address] [place] [address], 63247 09/10/2024 22:46:42 09/10/20 24 09/10/2024 UA + MICRO (DO NOT ORDER ) color urine Yellow yellow Not Available [facility] Department [address] [place] [address], 02342 09/10/2024 23:00:25 09/10/20 24 09/10/2024 UA + MICRO (DO NOT ORDER ) appearance urine Clear clear Not Available [facility] Department [address] [place] [address], 10673 09/10/2024 23:00:25 09/10/20 24 09/10/2024 UA + MICRO (DO NOT ORDER ) specific gravity urine >=1.03 0 1.001- 1.035 abnormal Not Available [facility] Department [address] [place] [address], 39476 09/10/2024 23:00:25 09/10/20 24 09/10/2024 UA + MICRO (DO NOT ORDER ) glucose urine UA Negati ve negati ve Not Available [facility] Department [address] [place] [address], 11577 09/10/2024 23:00:25 09/10/20 24 09/10/2024 UA + MICRO (DO NOT ORDER ) bilirubin urine Negati ve negati ve Not Available [facility] Department [address] [place] [address], 94854 09/10/2024 23:00:25 09/10/20 24 09/10/2024 UA + MICRO (DO NOT ORDER ) ketones urine Trace negati ve abnormal Not Available [facility] Department [address] [place] [address], 51683 09/10/2024 23:00:25 09/10/20 24 09/10/2024 UA + MICRO (DO NOT ORDER ) urine hemoglobin 2+ negati ve abnormal Not Available [facility] Department [address] [place] [address], 46916 09/10/2024 23:00:25 09/10/20 24 09/10/2024 UA + MICRO (DO NOT ORDER ) pH urine 5.5 5.0-8. 0 Not Available [facility] Department [address] [place] [address], 78601 09/10/2024 23:00:25 09/10/20 24 09/10/2024 UA + MICRO (DO NOT ORDER ) protein urine Negati ve mg/dL negati ve Not Available [facility] Department [address] [place] [address], 71019 09/10/2024 23:00:25 09/10/20 24 09/10/2024 UA + MICRO (DO NOT ORDER ) urobilinogen urine 0.2 mg/dL 0.2-1. 0 Not Available [facility] Department [address] [place] [address], 07498 09/10/2024 23:00:25 09/10/20 24 09/10/2024 UA + MICRO (DO NOT ORDER ) nitrite urine Negati ve negati ve Not Available [facility] Department [address] [place] [address], 14586 09/10/2024 23:00:25 09/10/20 24 09/10/2024 UA + MICRO (DO NOT ORDER ) leukocyte esterase urine Negati ve negati ve Not Available [facility] Department [address] [place] [address], 70482 09/10/2024 23:00:25 09/10/20 24 09/10/2024 UA + MICRO (DO NOT ORDER ) RBC urine 0-2 0-3/hp f Not Available [facility] Department [address] [place] [address], 16798 09/10/2024 23:00:25 09/10/20 24 09/10/2024 UA + MICRO (DO NOT ORDER ) WBC urine 0-4 0-2/hp f Not Available [facility] Department [address] [place] [address], 29828 09/10/2024 23:00:25 09/10/20 24 09/10/2024 UA + MICRO (DO NOT ORDER ) squamous epithelial cell urine Few few/hp f Not Available [facility] Department [address] [place] [address], 69577 09/10/2024 23:00:25 09/10/20 24 09/10/2024 COMPR EHENS SADE MET. PANEL sodium 140 mmol/ L 136-14 5 normal Not Available [facility] Department [address] [place] [address], 67221 09/10/2024 23:40:42 09/10/20 24 09/10/2024 COMPR EHENS SADE MET. PANEL potassium 4.0 mmol/ L 3.5-5. 1 normal Not Available [facility] Laboratory Department [address] [place] [address], [id number] 09/10/2024 23:40:42 09/10/20 24 09/10/2024 COMPR EHENS SADE MET. PANEL chloride 106 mmol/ L 98-107 normal Not Available [facility] Laboratory Department [address] [place] [address], 670[address] 09/10/2024 23:40:42 09/10/20 24 09/10/2024 COMPR EHENS SADE MET. PANEL carbon dioxide 24.2 mmol/ L 22-29 normal Not Available [facility] Laboratory Department [address] [place], [address] 09/10/2024 23:40:42 09/10/20 24 09/10/2024 COMPR EHENS SADE MET. PANEL anion gap 13 mmol/ L 10-20 normal Not Available [facility] Laboratory Department [address] [place], [address] 09/10/2024 23:40:42 09/10/20 24 09/10/2024 COMPR EHENS SADE MET. PANEL blood urea nitrogen 14 mg/dL 6-20 normal Not Available [facility] Laboratory Department [address] [place], [address] 09/10/2024 23:40:42 09/10/20 24 09/10/2024 COMPR EHENS SADE MET. PANEL creatinine 0.88 mg/dL 0.70-1 .2 normal Not Available [facility] Laboratory Department [address] [place] [address], 743[address] 09/10/2024 23:40:42 09/10/20 24 09/10/2024 COMPR EHENS SADE MET. PANEL estimated glomerular filt rate 125 GFR Value : mL/mi n/1.7 3 squar e meter s Calcu latio n: CKD-E PI Creat inine Equat ion (2020 ) Chron ic Kidne y Disea se is defin ed as eithe r of the follo wing prese nt for >= 3 month s: - GFR less than 60 mL/mi n/1.7 3 squar e meter s. - Micro album in:Ur . Creat inine Ratio >= 30 mg/g or other marke rs of kidtim y damag e Kidne y failu re is less than 15 mL/mi n/1.7 3 squar e meter s This test is not perfo rmed in patie nts under the age of 18. Not Available [facility] Laboratory Department [address] [place] [address], [id number] 09/10/2024 23:40:42 09/10/20 24 09/10/2024 COMPR EHENS SADE MET. PANEL glucose 116 mg/dL 70-106 high Not Available [facility] Laboratory Department [address] [place], [address] 09/10/2024 23:40:42 09/10/20 24 09/10/2024 COMPR EHENS SADE MET. PANEL calcium 9.1 mg/dL 8.4-10 .3 normal Not Available [facility] Laboratory Department [address] [place], [address] 09/10/2024 23:40:42 09/10/20 24 09/10/2024 COMPR EHENS SADE MET. PANEL bilirubin total < 0.2 mg/dL 0.2-1. 2 low Not Available [facility] Laboratory Department [address] [place], [address] 09/10/2024 23:40:42 09/10/20 24 09/10/2024 COMPR EHENS SADE MET. PANEL aspartate amino transferase 25 U/L 5-40 normal Not Available [facility] Laboratory Department [address] [place], [address] 09/10/2024 23:40:42 09/10/20 24 09/10/2024 COMPR EHENS SADE MET. PANEL alanine aminotransfe rase 47 U/L 5-41 high Not Available [facility] Laboratory Department [address] [place], [address] 09/10/2024 23:40:42 09/10/20 24 09/10/2024 COMPR EHENS SADE MET. PANEL total protein 7.4 g/dL 6.4-8. 3 normal Not Available [facility] Laboratory Department [address] [place], [address] 09/10/2024 23:40:42 09/10/20 24 09/10/2024 COMPR EHENS SADE MET. PANEL albumin level 3.9 g/dL 3.5-5. 2 normal Not Available [facility] Laboratory Department [address] [place], [address] 09/10/2024 23:40:42 09/10/20 24 09/10/2024 COMPR EHENS SADE MET. PANEL globulin 3.5 gm/dL 2.0-3. 5 normal Not Available [facility] Laboratory Department [address] [place], [address] 09/10/2024 23:40:42 09/10/20 24 09/10/2024 COMPR EHENS SADE MET. PANEL albumin globulin ratio 1.1 % 1.1-2. 5 normal Not Available [facility] Laboratory Department [address] [place] [address], 329[address] 09/10/2024 23:40:42 09/10/20 24 09/10/2024 HENNY LEI. PANEL alkaline phosphatase 60 U/L 40-129 normal Not Available [facility] Laboratory Department [address] [place] [address], 265[address] 09/10/2024 23:40:42 09/10/20 24 09/10/2024 LIPAS E lipase 10 U/L 13-60 low Not Available [facility] Laboratory Department [address] [place] [address], 790[address] 09/10/2024 23:40:43 12/10/19 25 12/10/2024 COMPL ETE BLOOD COUNT AUTO DIFF white blood count 11.78 K/uL 3.5-11 .0 high Not Available [facility] Laboratory Department [address] [place] [address], 38048 12/10/2024 18:26:53 12/10/19 25 12/10/2024 COMPL ETE BLOOD COUNT AUTO DIFF red blood count 5.35 M/uL 3.90-5 .50 normal Not Available [facility] Laboratory Department [address] [place] [address], 80379 12/10/2024 18:26:53 12/10/19 25 12/10/2024 COMPL ETE BLOOD COUNT AUTO DIFF hemoglobin 15.2 g/dL 14.0-1 8.0 normal Not Available [facility] Laboratory Department [address] [place] [address], 64720 12/10/2024 18:26:53 12/10/19 25 12/10/2024 COMPL ETE BLOOD COUNT AUTO DIFF hematocrit 48.0 % 42.0-5 4.0 normal Not Available [facility] Laboratory Department [address] [place] [address], 93105 12/10/2024 18:26:53 12/10/19 25 12/10/2024 COMPL ETE BLOOD COUNT AUTO DIFF mean corpuscular volume 89.7 fL 80.0-1 00.0 normal Not Available [facility] Laboratory Department [address] [place] [address], 27303 12/10/2024 18:26:53 12/10/19 25 12/10/2024 COMPL ETE BLOOD COUNT AUTO DIFF mean corpuscular hemoglobin 28.4 pg 25.4-3 4.6 normal Not Available [facility] Laboratory Department [address] [place] [address], 12447 12/10/2024 18:26:53 12/10/19 25 12/10/2024 COMPL ETE BLOOD COUNT AUTO DIFF mean corpuscular HGB conc 31.7 g/dL 31.0-3 7.0 normal Not Available [facility] Laboratory Department [address] [place] [address], 18932 12/10/2024 18:26:53 12/10/19 25 12/10/2024 COMPL ETE BLOOD COUNT AUTO DIFF red cell distribution width 12.5 % 11.5-1 4.5 normal Not Available [facility] Laboratory Department [address] [place] [address], 56757 12/10/2024 18:26:53 12/10/19 25 12/10/2024 COMPL ETE BLOOD COUNT AUTO DIFF platelet count 387 K/uL 150-40 0 normal Not Available [facility] Laboratory Department [address] [place] [address], 619[address] 12/10/2024 18:26:53 12/10/19 25 12/10/2024 COMPL ETE BLOOD COUNT AUTO DIFF neutrophils percent auto 60.8 % 35.0-6 6.0 normal Not Available [facility] Laboratory Department [address] [place] [address], 98969 12/10/2024 18:26:53 12/10/19 25 12/10/2024 COMPL ETE BLOOD COUNT AUTO DIFF imm gran pct auto 0.3 % 0.0-0. 6 normal Not Available [facility] Laboratory Department [address] [place] [address], 13723 12/10/2024 18:26:53 12/10/19 25 12/10/2024 COMPL ETE BLOOD COUNT AUTO DIFF lymphocytes percent auto 28.4 % 25.0-4 5.0 normal Not Available [facility] Laboratory Department [address] [place] [address], 07388 12/10/2024 18:26:53 12/10/19 25 12/10/2024 COMPL ETE BLOOD COUNT AUTO DIFF monocytes percent auto 6.5 % 0.0-13 .0 normal Not Available [facility] Laboratory Department [address] [place] [address], 65481 12/10/2024 18:26:53 12/10/19 25 12/10/2024 COMPL ETE BLOOD COUNT AUTO DIFF eosinophils percent auto 3.5 % 0.0-8. 0 normal Not Available [facility] Laboratory Department [address] [place] [address], 03830 12/10/2024 18:26:53 12/10/19 25 12/10/2024 COMPL ETE BLOOD COUNT AUTO DIFF basophils percent auto 0.5 % 0.0-1. 0 normal Not Available [facility] Laboratory Department [address] [place] [address], 68474 12/10/2024 18:26:53 12/10/19 25 12/10/2024 COMPL ETE BLOOD COUNT AUTO DIFF NRBC pct auto 0.0 /100_ WBC 0.0 normal Not Available [facility] Laboratory Department [address] [place] [address], 22615 12/10/2024 18:26:53 12/10/19 25 12/10/2024 COMPL ETE BLOOD COUNT AUTO DIFF neutrophils absolute auto 7.17 K/uL 1.5-7. 5 normal Not Available [facility] Laboratory Department [address] [place] [address], 95110 12/10/2024 18:26:53 12/10/19 25 12/10/2024 COMPL ETE BLOOD COUNT AUTO DIFF imm gran abs auto 0.04 K/uL 0.00-0 .09 normal Not Available [facility] Laboratory Department [address] [place] [address], 94650 12/10/2024 18:26:53 12/10/19 25 12/10/2024 COMPL ETE BLOOD COUNT AUTO DIFF lymphocytes absolute auto 3.34 K/uL 0.8-4. 8 normal Not Available [facility] Laboratory Department [address] [place] [address], 00821 12/10/2024 18:26:53 12/10/19 25 12/10/2024 COMPL ETE BLOOD COUNT AUTO DIFF monocytes absolute auto 0.76 K/uL 0.4-1. 3 normal Not Available [facility] Laboratory Department [address] [place] [address], 02916 12/10/2024 18:26:53 12/10/19 25 12/10/2024 COMPL ETE BLOOD COUNT AUTO DIFF eosinophils absolute auto 0.41 K/uL 0.0-0. 8 normal Not Available [facility] Laboratory Department [address] [place], [address] 12/10/2024 18:26:53 12/10/1912/10/2024 COMPL ETE BLOOD COUNT AUTO DIFF basophils absolute auto 0.06 K/uL 0.0-0. 6 normal Not Available [facility] Laboratory Department [address] [place] [address], 17854 12/10/2024 18:26:53 12/10/19 25 12/10/2024 COMPL ETE BLOOD COUNT AUTO DIFF NRBC abs auto 0.00 K/uL 0.00 normal Not Available [facility] Laboratory Department [address] [place] [address], 02529 12/10/2024 18:26:53 12/10/1912/10/2024 COMPR EHENS SADE MET. PANEL sodium 139 mmol/ L 136-14 5 normal Not Available [facility] Laboratory Department [address] [place] [address], 19139 12/10/2024 18:32:27 12/10/19 25 12/10/2024 COMPR EHENS SADE MET. PANEL potassium 4.30 mmol/ L 3.5-5. 1 normal Not Available [facility] Laboratory Department [address] [place] [address], 06692 12/10/2024 18:32:27 12/10/19 25 12/10/2024 COMPR EHENS SADE MET. PANEL chloride 102 mmol/ L 98-107 normal Not Available [facility] Laboratory Department [address] [place] [address], 52611 12/10/2024 18:32:27 12/10/19 25 12/10/2024 COMPR EHENS SADE MET. PANEL carbon dioxide 25 mmol/ L 22-29 normal Not Available [facility] Laboratory Department [address] [place] [address], 58680 12/10/2024 18:32:27 12/10/19 25 12/10/2024 COMPR EHENS SADE MET. PANEL anion gap 17 mmol/ L 10-20 normal Not Available [facility] Laboratory Department [address] [place] [address], 75213 12/10/2024 18:32:27 12/10/19 25 12/10/2024 COMPR EHENS SADE MET. PANEL blood urea nitrogen 19 mg/dL 6-20 normal Not Available [facility] Laboratory Department [address] [place], [address] 12/10/2024 18:32:27 12/10/1912/10/2024 COMPR EHENS SADE MET. PANEL creatinine 0.68 mg/dL 0.67-1 .17 normal Not Available [facility] Laboratory Department [address] [place], [address] 12/10/2024 18:32:27 12/10/1912/10/2024 COMPR EHENS SADE MET. PANEL estimated glomerular filt rate 135 GFR Value : mL/mi n/1.7 3 squar e meter s Calcu latio n: CKD-E PI Creat inine Equat ion (2020 ) Chron ic Kidne y Disea se is defin ed as eithe r of the follo wing prese nt for >= 3 month s: - GFR less than 60 mL/mi n/1.7 3 squar e meter s. - Micro album in:Ur . Creat inine Ratio >= 30 mg/g or other marke rs of ronn y damag e Kidne y failu re is less than 15 mL/mi n/1.7 3 squar e meter s This test is not perfo rmed in patie nts under the age of 18. Not Available [facility] Laboratory Department [address] [place] [address], 29601 12/10/2024 18:32:27 12/10/1912/10/2024 COMPR EHENS SADE MET. PANEL glucose 85 mg/dL 70-106 normal Not Available [facility] Laboratory Department [address] [place], [address] 12/10/2024 18:32:27 12/10/1912/10/2024 COMPR EHENS SADE MET. PANEL calcium 9.1 mg/dL 8.6-10 .3 normal Not Available [facility] Laboratory Department [address] [place], [address] 12/10/2024 18:32:27 12/10/19 25 12/10/2024 COMPR EHENS SADE MET. PANEL bilirubin total 0.3 mg/dL 0.2-1. 2 normal Not Available [facility] Laboratory Department [address] [place] [address], 38242 12/10/2024 18:32:27 12/10/19 25 12/10/2024 COMPR EHENS SADE MET. PANEL aspartate amino transferase 24 U/L 5-40 normal Not Available [facility] Laboratory Department [address] [place] [address], 62920 12/10/2024 18:32:27 12/10/19 25 12/10/2024 COMPR EHENS SADE MET. PANEL alanine aminotransfe rase 46 U/L 5-41 high Not Available [facility] Laboratory Department [address] [place], [address] 12/10/2024 18:32:27 12/10/19 25 12/10/2024 COMPR EHENS SADE MET. PANEL total protein 7.1 g/dL 6.4-8. 3 normal Not Available [facility] Laboratory Department [address] [place] [address], 89508 12/10/2024 18:32:27 12/10/19 25 12/10/2024 COMPR EHENS SADE MET. PANEL albumin level 4.1 g/dL 3.5-5. 2 normal Not Available [facility] Laboratory Department [address] [place] [address], 64767 12/10/2024 18:32:27 12/10/19 25 12/10/2024 COMPR EHENS SADE MET. PANEL globulin 3.0 gm/dL 2.0-3. 5 normal Not Available [facility] Laboratory Department [address] [place] [address], 85138 12/10/2024 18:32:27 12/10/19 25 12/10/2024 COMPR EHENS SADE MET. PANEL albumin globulin ratio 1.3 % 1.1-2. 5 normal Not Available [facility] Laboratory Department [address] [place] [address], 47858 12/10/2024 18:32:27 12/10/19 25 12/10/2024 COMPR EHENS SADE MET. PANEL alkaline phosphatase 58 U/L 40-129 normal Not Available [facility] Laboratory Department [address] [place] [address], 33507 12/10/2024 18:32:27 12/10/19 25 12/10/2024 LIPID PANEL WITH REFLE X triglyceride s 143 mg/dL 30-150 normal Refer ence Range s: <150 mg/dl Lulu l 150-1 99 mg/dl Borde rline High 200-4 99 mg/dl High >500 mg/dl Very High Not Available [facility] Laboratory Department [address] [place], [address] 12/10/2024 18:32:28 12/10/19 25 12/10/2024 LIPID PANEL WITH REFLE X cholesterol 139 mg/dL 100-20 0 normal Not Available [facility] Laboratory Department [address] [place], [address] 12/10/2024 18:32:28 12/10/19 25 12/10/2024 LIPID PANEL WITH REFLE X LDL cholesterol direct TNP mg/dL 0-100 Not Available [facility] Laboratory Department [address] [place], [address] 12/10/2024 18:32:28 12/10/1912/10/2024 LIPID PANEL WITH REFLE X LDL cholesterol calculated 79.0 mg/dL 0-100 normal Natio nal Barbara stero l Educa tion Progr am sugge sts the follo wing refer ence range : Optim al <100 mg/dL Near optim al/ab ove optim al 100-1 29 mg/dL Borde rline high 130-1 59 mg/dL High 160-1 89 mg/dL Very high >190 mg/dL Not Available [facility] Laboratory Department [address] [place], [address] 12/10/2024 18:32:28 12/10/19 25 12/10/2024 LIPID PANEL WITH REFLE X HDL cholesterol 31.5 mg/dL 40-60 low Major risk facto r for CHD: <40 mg/dL Negat sade risk facto r for CHD: >=60 mg/dL Not Available [facility] Laboratory Department [address] [place], [address] 12/10/2024 18:32:28 12/10/19 25 12/10/2024 LIPID PANEL WITH REFLE X chol HDL ratio 4.41 Risk CHOL/ HDL CHOL/ HDL Ratio Male Femal e 1/2 AVERA GE 3.43 3.27 AVERA GE 4.97 4.44 2 X AVERA GE 9.55 7.05 3 X AVERA GE 23.39 11.04 Not Available [facility] Laboratory Department [address] [place], [address] 12/10/2024 18:32:28 12/10/19 25 12/10/2024 TSH REFLE X FREE T4 free T4 (free thyroxine) TNP NG/dL 0.9-1. 7 Not Available [facility] Laboratory Department [address] [place] [address], 50610 12/10/2024 18:32:29 12/10/19 25 12/10/2024 TSH REFLE X FREE T4 TSH reflex free T4 2.02 uIU/m L 0.27-4 .20 normal Not Available [facility] Laboratory Department [address] [place] [address], 21073 12/10/2024 18:32:29 12/10/19 25 12/10/2024 INSUL IN insulin 84.3 i??IU /mL 2.6-24 .9 high Not Available [facility] Laboratory Department [address] [place] [address], 93727 12/10/2024 18:33:25 12/10/19 25 12/10/2024 VITAM IN B12 AND FOLAT E vitamin B12 638 pg/mL 232-12 45 normal Not Available [facility] Laboratory Department [address] [place] [address], 09676 12/10/2024 18:40:01 12/10/19 25 12/10/2024 VITAM IN B12 AND FOLAT E folate 3.4 NG/mL 4.8-18 .8 low Lulu l: >5.9 ng/mL Inter media te: 4.0-5 .9 ng/mL Defic ient: <4.0 ng/mL Not Available [facility] Laboratory Department [address] [place] [address], 32364 12/10/2024 18:40:01 12/10/19 25 12/10/2024 VITAM IN D 25-OH TOTAL vitamin D 25-oh total 16.9 NG/mL Refer ence Range : Defic ient <20 ng/mL Insuf ficie nt 21-29 ng/mL Suffi cient >30 ng/mL Not Available [facility] Laboratory Department [address] [place] [address], 04640 12/10/2024 18:43:34 12/10/19 25 12/10/2024 HEMOG LOBIN A1C hemoglobin A1C % 5.5 % 4.0-5. 7 normal % of the total HgB Inter preta tion ----- ----- ----- --- ----- ----- ----- - <5.7 Consi stent with the absen ce of diabe titi 5.7-6 .4 Consi stent with incre ased risk for diabe titi (pred iabet es) > or = to 6.5 Consi stent with Diabe titi Not Available [facility] Laboratory Department [address] [place] [address], 60519 12/10/2024 18:45:09 12/13/1912/13/2024 DRUG SCREE N URINE opiate screen urine Negati ve negati ve Not Available [facility] Laboratory Department [address] [place] [address], 93668 12/13/2024 17:22:49 12/13/19 25 12/13/2024 DRUG SCREE N URINE barbiturates , urine Negati ve negati ve Not Available [facility] Laboratory Department [address] [place] [address], 04361 12/13/2024 17:22:49 12/13/1912/13/2024 DRUG SCREE N URINE phencyclidin e screen urine Negati ve negati ve Not Available [facility] Laboratory Department [address] [place] [address], 24887 12/13/2024 17:22:49 12/13/19 25 12/13/2024 DRUG SCREE N URINE amphetamine screen urine Negati ve negati ve Not Available [facility] Laboratory Department [address] [place] [address], 97265 12/13/2024 17:22:49 12/13/19 25 12/13/2024 DRUG SCREE N URINE benzodiazepi shira screen urine Negati ve negati ve Not Available [facility] Laboratory Department [address] [place] [address], 50868 12/13/2024 17:22:49 12/13/19 25 12/13/2024 DRUG SCREE N URINE cocaine screen urine Negati ve negati ve Not Available [facility] Laboratory Department [address] [place] [address], 16969 12/13/2024 17:22:49 12/13/19 25 12/13/2024 DRUG SCREE N URINE cannabinoid screen urine Negati ve negati ve Not Available [facility] Laboratory Department [address] [place], [address] 12/13/2024 17:22:49 12/13/19 25 12/13/2024 DRUG SCREE N URINE methadone screen, urine Negati ve negati ve Not Available [facility] Laboratory Department [address] [place] [address], 92591 12/13/2024 17:22:49 12/13/19 25 12/13/2024 DRUG SCREE N URINE propoxyphene urine screen Negati ve negati ve Not Available [facility] Laboratory Department [address] [place] [address], 05557 12/13/2024 17:22:49 12/13/19 25 12/13/2024 DRUG SCREE N URINE oxycodone urine screen Negati ve negati ve Not Available [facility] Laboratory Department [address] [place] [address], 51299 12/13/2024 17:22:49 12/13/19 25 12/13/2024 DRUG SCREE N URINE fentanyl screen urine Negati ve negati ve Not Available [facility] Laboratory Department [address] [place] [address], 11782 12/13/2024 17:22:49 12/13/19 25 12/13/2024 DRUG SCREE N URINE ur drug screen interpretati on See Commen ts negati ve Testi ng Thres holds are as follo ws: Ampth etami shira 500 ng/mL Benzo diaze pines 100 ng/mL Propo xyphe ne 300 ng/mL Meghna turat es 200 ng/mL Metha done 300 ng/mL PCP/m etabo lites 25 ng/mL Cocai ne/me tabol ites 300 ng/mL Canna binoi ds 50 ng/ml Opiat e Class 300 ng/mL Oxyco done Class 100 ng/mL Fenta nyl 5 ng/ml A Negat sade test resul t indic ates that this ana te is eithe r not prese nt, OR is prese nt at level s below the cutof f thres hold of this test. A Posit sade resul t from the assay indic ates only the prese nce of the ana te and does not neces shayna huggins late with the exten t of physi ologi chloe and psych ologi chloe effec ts. Pleas e Note: This is a scree rosette metho d only. This speci men will not be autom atica lly sent out to a refer ence labor atory for any confi rmati on testi ng. If the provi vonnie needs confi rmati on testi ng, Alicia cleveland call the labor atory withi n [address] [facility] er testi ng. Not Available [facility] Laboratory Department [address] [place], [address] 12/13/2024 17:22:49 01/04/20 23 11/15/2022 miguel r monit or No observ ation record ed. [email or web address] [facility] ([facility]) [address] [place], [address], 01/06/2023 13:20:30 09/11/20 24 09/11/2024 CT, abdom en + pelvi s, w/ contr ast [facility] [address] [place] [address] CT Scan Report Signed Patien t: Samuel Bo MR#: [id number] : 1999 Acct:A [id number] Age/Se x: 23 / M ADM Date: Loc: HE.AER Attend ing Dr: Germán moss Physic raymundo: Bhupinder marin MD Date of Servic e: Proced ure(s) : CT abdome n pelvis w IV con Access ion Number (s): [id number] H cc: Eugene Blakely MD PROCED URE INFORM ATION: Exam: CT Abdome n And Pelvis With Contra st Exam date and time: 2023 1:04 AM Age: 23 years old Clinic al indica tion: Abdomi nal pain; Locali zed; Upper; Additi onal info: Upper abd pain TECHNI QUE: Imagin g protoc ol: Comput ed tomogr aphy of the abdome n and pelvis with contra st. Radiat ion optimi zation : All CT scans at this facili ty use at least one of these dose optimi zation techni ques: automa sherwin exposu re contro l; mA and/or kV adjust ment per patien t size (inclu israel target ed exams where dose is matche d to clinic al indica tion); or iterat sade recons tructi on. Contra st materi al: OMNIPA QUE 350; Contra st volume : 120 ml; Contra st route: INTRAV ENOUS (IV); COMPAR FLAKITA: AORTIC DISSEC TION(A dult) 021 6:18 PM FINDIN GS: Liver: Unrema rkable . No hepato megaly . Gallbl adder and biliar y ducts: Unrema rkable . No calcif ied stones . No ductal dilati on. Pancre as: Unrema rkable . No inflam matory change . Spleen : Unrema rkable . No spleno megaly . Adrena l glands : Unrema rkable . No mass. Kidney s and ureter s: Unrema rkable . No stones or hydron ephros is. Stomac h and bowel: Unrema rkable . No obstru ction. No divert iculit is or coliti s. Append ix: No eviden ce of append icitis . Intrap eriton eal space: Unrema rkable . No free air. No signif icant fluid collec tion. Vascul ature: Unrema rkable . No abdomi nal aortic aneury sm. Lymph nodes: Unrema rkable . No enlarg ed lymph nodes. Urinar y bladde r: Unrema rkable . No signif icant wall thicke rosette. Reprod uctive : Unrema rkable . Bones/ joints : L5-S1 minima l spondy lolist hesis. Soft tissue s: No acute findin gs. IMPRES AMELIA: No acute findin gs. Electr onical ly Signed By: Christian Jalloh MD On 2023 02:39: 26 Dictat ed By: Christian Jalloh Signed By: 9 DD/DT: 103 TD/TT: Transc riptio nist: [facility] [address] [facility], [place], [address], 09/11/2024 07:30:31 12/14/19 25 12/13/2024 XR, chest , 2 view [facility] [address] [facility] [place] [address] XRay Report Signed Patien t: Samuel Bo MR#: [id number] : 1999 Acct:H [id number] Age/Se x: 24 / M ADM Date: Loc: HE.ER Attend ing Dr: Germán moss Physic raymundo: Nithin mukherjee PA-C Date of Servic e: Proced ure(s) : XR chest 2V Access ion Number (s): [id number] H cc: Eugene Blakely MD EXAM: XR chest 2V CLINIC AL INDICA TION: cough COMPAR FLAKITA: 022 FINDIN GS: Heart size normal . Cardio medias tinal silhou ette normal . Normal pulmon libia vascul arity. No consol idatio n. No pleura l effusi on. No pneumo thorax . ECG leads overli e and partia lly obscur e the chest. Osseou s struct ures appear intact . Electr onical ly Signed in [facility] By AMADO Dickson MD, MD 148 XR/XR chest 2V IMPRES AMELIA: No consol idatio n Dictat ed By: Amado dickson MD Signed By: 1611 DD/DT: 1904 TD/TT: 1914 Transc riptio nist: [facility] [address] [facility], [place], [address], 12/15/2024 13:24:09 12/24/19 25 elect malou woods am No observ ation record ed. [email or web address] Not Available 2024 10:55:11 Result Notes None recorded. Problems Name Problem SNOMED Code Status Onset Date Resolution Date Notes Provider Name and Address Organization Details Recorded Time Hypothyro idism 88705856 Active 2021 AMARA Jhaveri MA [facility] 18:39:22 Obesity 361022480 Active 2021 AMARA Jhaveri [facility] 11/13/202 2 18:46:47 Bipolar disorder 58872931 Active 2021 Mary Kate Garces MA null, [facility] 2 18:47:02 Asthma 496722290 Active 2021 ENMA Silvestre [address] [place] [address] AMARA Gagnon, [address], [facility] 2 10:23:12 Hypertens sade disorder 16672571 Active 2021 ENMA Silvestre [address] [place] [address] AMARA Gagnon, [address], [facility] 2 10:23:19 Sleep apnea 81207287 Active 2021 ENMA Silvestre [address] [place] [address] AMARA Gagnon, [address], [facility] 2 10:23:35 Posttraum atic stress disorder 42242989 Active 2021 Mary Kate Garces MA null, [facility] 2 10:38:06 Coronary arteriosc lerosis 91172790 Active 2021 hx of suspected anterior [facility] ENMA Silvestre [address] [place], [place] [address], [address], [facility] 2 11:32:38 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 Procedures Surgical History Date Name Laterality Status Provider Name and Address Organization Details Recorded Time 02/26/20 Telemedicine Documentation cancelled Coleen Sabillon NP [address] [facility] [place], [address], [facility] 02/25/2025 07:24:22 12/24/19 25 BEDS-7 completed Coleen Sabillon NP [address] [facility] [place], [address], [facility] 12/24/2024 11:40:43 12/24/19 25 [place] Sleepiness Scale completed Coleen Sabillon NP [address] [facility] [place], [address], [facility] 12/24/2024 11:40:53 12/24/19 25 Telemedicine Documentation completed Coleen Sabillon NP [address] [facility] [place], [address], [facility] 12/24/2024 11:41:20 11/15/20 22 EKG completed CARMELINA ROJAS NP [address] [facility] [place], [address], [facility] 11/15/2022 15:46:56 10/10/20 22 PHQ-9 Patient Health Questionnaire completed Mary Kate Garces MA [facility] 10/10/2022 09:44:03 12/16/19 22 Cerumen Removal completed ENMA Patton [address] [facility] [place], [address], [facility] 12/16/2021 12:04:29 Imaging Results Imaging Date Name Status LastModified by Organization Details LastModified Time 11/15/2022 holter monitor completed [email or web address] [facility] [address] [place], [address], 01/06/2023 13:20:30 09/11/2024 CT, abdomen + pelvis, w/ contrast completed [email or web address] [facility] [address] [place], [address], 09/11/2024 07:30:31 12/13/2024 XR, chest, 2 view completed [email or web address] [facility] [address] [place], [address], 12/15/2024 13:24:09 12/24/2024 electrocardiogram completed [email or web address] Informa tion not available 12/24/2024 10:55:11 Procedure Notes None recorded. Medical Equipment None Reported. Allergies No known drug allergies Medications Name Sig Start Date Stop Date Status Note LastModified by Organization Details LastModified Time venlafaxin e ER 37.5 mg capsule,ex tended release 24 hr TAKE 1 CAPSULE IN THE MORNING FOR 7 DAYS THEN TAKE 2 CAPSULES IN THE MORNING THEREAFT ER 12/20 completed Not Available Not Available Not Available clonidine HCl 0.1 mg tablet TAKE 1 TABLET BY MOUTH AT BEDTIME active Not Available Not Available No t Available gabapentin 600 mg tablet take 2 tablets by mouth three times a day active not taking Not Available Not Available Not Available haloperido l 5 mg tablet TAKE 1 TABLET BY MOUTH TWICE A DAY active Not Available Not Available No t Available trazodone 50 mg tablet TAKE 1 TABLET BY MOUTH AT BEDTIME active Not Available Not Available No t Available azithromyc in 250 mg tablet TAKE 1 TABLET BY MOUTH DAILY FOR 4 DAYS. 11/01 completed Not Available Not Available Not Available chlorproma zine 100 mg tablet 10/09 completed Not Available Not Available Not Available prazosin 1 mg capsule 10/09 completed Not Available Not Available Not Available minocyclin e 100 mg capsule 10/10 completed Not Available Not Available Not Available prednisone 20 mg tablet TAKE 3 TABLETS (60 MG TOTAL) BY MOUTH DAILY WITH BREAKFAS T FOR 4 DAYS. 11/01 completed Not Available Not Available Not Available fluoxetine 10 mg tablet TAKE 1 TABLET BY MOUTH EVERY DAY IN THE MORNING active Not Available Not Available No t Available desmopress in 0.2 mg tablet TAKE 1 TABLET BY MOUTH EVERYDAY AT BEDTIME active Not Available Not Available No t Available gabapentin 400 mg capsule take 2 capsules by mouth three times a day active pt taking Not Available Not Available Not Available quetiapine 200 mg tablet TAKE 1 TABLET BY MOUTH AT BEDTIME FOR MOOD 10/10 completed Not Available Not Available Not Available atenolol 25 mg tablet Take 1 tablet every day by oral route for 28 days. 10/10 completed Not Available Not Available Not Available hydroxyzin e pamoate 50 mg capsule TAKE 1 CAPSULE BY MOUTH TWICE A DAY DIRECTED 11/01 completed Not Available Not Available Not Available topiramate 25 mg tablet take 1 tablet by mouth twice a day active Not Available Not Available No t Available melatonin 3 mg tablet TAKE 2 TABLET BY MOUTH AT BEDTIME FOR INSOMNIA active Not Available Not Available No t Available sulfametho xazole 800 mg-trimeth oprim 160 mg tablet TAKE 1 TABLET BY MOUTH TWICE A DAY FOR 10 DAYS 11/01 completed Not Available Not Available Not Available acetaminop hen 500 mg tablet PLEASE SEE ATTACHED FOR DETAILED DIRECTIO NS active Not Available Not Available No t Available lithium carbonate ER 450 mg tablet,ext ended release TAKE 4 TABLETS BY MOUTH AT BEDTIME 10/10 completed Not Available Not Available Not Available Adderall XR 20 mg capsule,ex tended release TAKE 1 CAPSULE BY MOUTH EVERY DAY FOR 14 DAYS 11/01 completed Not Available Not Available Not Available levothyrox ine 25 mcg tablet TAKE 1 TABLET DAILY 2022 active Not Available Not Available Not Avai lable dextroamph etamine-am phetamine 30 mg tablet take 1 tablet by mouth once daily active Not Available Not Available No t Available prazosin 5 mg capsule TAKE 1 CAPSULE BY MOUTH AT BEDTIME FOR PTSD 10/09 completed Not Available Not Available Not Available Adderall XR 30 mg capsule,ex tended release TAKE 1 CAPSULE BY MOUTH EVERY DAY active Not Available Not Available No t Available lorazepam 0.5 mg tablet TAKE 1 TABLET BY MOUTH EVERYDAY AT BEDTIME active Not Available Not Available No t Available gabapentin 800 mg tablet Take 1 tablet 3 times a day by oral route for 14 days. 2023 active Not Available Not Available Not Avai lable trazodone 100 mg tablet 10/10 completed Not Available Not Available Not Available Ear Wax Removal Drops 6.5 % INSTILL 5 DROPS INTO THE AFFECTED EAR TWICE DAILY FOR 5 DAYS 10/09 completed Not Available Not Available Not Available lithium carbonate 300 mg capsule 10/09 completed Not Available Not Available Not Available venlafaxin e 37.5 mg tablet TAKE 2 TABLETS BY MOUTH EVERY DAY 11/01 completed Not Available Not Available Not Available chlorproma zine 25 mg tablet take 3 tablet by mouth three times a day for PSYCHOSI S active Not Available Not Available No t Available dextroamph etamine-am phetamine 20 mg tablet TAKE 1 TABLET BY MOUTH TWICE A DAY 0830 AND 1400 ADMIN TIMES ADHD active Not Available Not Available No t Available fluoxetine 10 mg capsule TAKE 3 CAPSULES BY MOUTH EVERY DAY DEPRESSI ON active Not Available Not Available No t Available docusate sodium 100 mg capsule take 1 capsule by mouth twice a day for stool softener active Not Available Not Available No t Available gabapentin 300 mg capsule TAKE 1 CAPSULE BY MOUTH THREE TIMES DAILY active not taking. RL Not Available Not Available Not Available omeprazole 20 mg capsule,de layed release Take 1 capsule every day by oral route. 2022 active not taking. RL Not Available Not Available Not Available aspirin 81 mg chewable tablet chew and swallow 1 tablet by mouth once daily active Not Available Not Available No t Available cephalexin 500 mg tablet TAKE 1 TABLET BY MOUTH FOUR TIMES DAILY FOR 10 DAYS 11/01 completed Not Available Not Available Not Available hydroxyzin e HCl 25 mg tablet TAKE 1 TABLET BY MOUTH THREE TIMES A DAY NEEDED active Not Available Not Available No t Available nystatin 100,000 unit/gram topical powder 1 APPL TOPICALL Y 2 TIMES A DAY active Not Available Not Available No t Available lorazepam 1 mg tablet TAKE 1 TABLET BY MOUTH EVERY 6 HOURS NEEDED FOR ANXIETY 11/01 completed Not Available Not Available Not Available ibuprofen 600 mg tablet TAKE 1 TABLET (600 MG) BY MOUTH EVERY 6 (SIX) HOURS IF NEEDED FOR PAIN SCORE 1-3 FOR UP TO 5 DAYS. active Not Available Not Available No t Available propranolo l 20 mg tablet TAKE 1 TABLET BY MOUTH TWICE DAILY (MORNING AND AT 5PM) 10/10 completed pt has not been taking Not Available Not Available Not Available guanfacine 2 mg tablet TAKE 1 TABLET BY MOUTH DAILY 10/09 completed Not Available Not Available Not Available clotrimazo le 1 % topical cream APPLY TOPICALL Y TO THE AFFECTED AND SURROUND ING AREAS TWICE DAILY IN THE MORNING AND IN THE EVENING FOR 14 DAYS 11/01 completed Not Available Not Available Not Available sertraline 50 mg tablet 10/09 completed Not Available Not Available Not Available dicyclomin e 10 mg capsule Take 1 capsule twice a day by oral route as needed for 5 days. 02/16 completed Not Available Not Available Not Available atenolol 50 mg tablet 10/09 completed Not Available Not Available Not Available prazosin 2 mg capsule 10/09 completed Not Available Not Available Not Available chlorproma zine 50 mg tablet TAKE 1 TABLET BY MOUTH EVERY MORNING AND 2 AT BEDTIME active Not Available Not Available No t Available Ventolin HFA 90 mcg/actuat ion aerosol inhaler INHALE 2 PUFFS EVERY 4 HOURS IF NEEDED FOR WHEEZING . active Not Available Not Available No t Available desmopress in 0.1 mg tablet 10/09 completed Not Available Not Available Not Available One Daily Multivitam in tablet 10/10 completed Not Available Not Available Not Available hydrocorti sone 1 % topical cream with perineal applicator TAKE 1 APPLICAT ION TOPICAL TWICE A DAY FOR HIVES ON RIGHT ARM active Not Available Not Available No t Available aripiprazo le 5 mg tablet TAKE 1 TABLET BY MOUTH EVERY DAY active Not Available Not Available No t Available bupropion HCl XL 300 mg 24 hr tablet, extended release TAKE 1 TABLET BY MOUTH EVERY DAY 10/10 completed Not Available Not Available Not Available bupropion HCl XL 150 mg 24 hr tablet, extended release TAKE 1 TABLET BY MOUTH DAILY 10/09 completed Not Available Not Available Not Available melatonin 1 mg tablet TAKE 1 TABLET BY MOUTH AT BEDTIME 10/10 completed Not Available Not Available Not Available escitalopr am 5 mg tablet TAKE 1 TABLET BY MOUTH EVERY DAY active Not Available Not Available No t Available mirtazapin e 7.5 mg tablet TAKE 1 TABLET BY MOUTH AT BEDTIME FOR MOOD 10/10 completed Not Available Not Available Not Available nitrofuran toin monohydrat e/macrocry stals 100 mg capsule TAKE 1 CAPSULE BY MOUTH TWICE DAILY FOR 10 DAYS 10/10 completed Not Available Not Available Not Available Flovent HFA 44 mcg/actuat ion aerosol inhaler 02/17 completed Not Available Not Available Not Available Flovent HFA 110 mcg/actuat ion aerosol inhaler INHALE 1 PUFF BY MOUTH TWICE DAILY active Not Available Not Available No t Available folic acid 400mcg daily 2024 active Not Available Not Available Not Avai lable Lamictal 12/06 /2024 completed 25 mg Not Available Not Available Not Available Vitamin D3 2000 i.u.jose alberto y 2024 active Not Available Not Available Not Avai lable Abilify 2 mg tablet Take 1 tablet every day by oral route for 30 days. 02/17 completed Not Available Not Available Not Available quetiapine 50 mg tablet TAKE 1 TABLET BY MOUTH TWICE A DAY 11/01 completed Not Available Not Available Not Available cholecalci ferol (vitamin D3) 25 mcg (1,000 unit) tablet TAKE 1 TABLET BY MOUTH DAILY active Not Available Not Available No t Available quetiapine ER 50 mg tablet,ext ended release 24 hr TAKE 2 TABLETS BY MOUTH EVERY DAY AT BEDTIME active Not Available Not Available No t Available guanfacine ER 2 mg tablet,ext ended release 24 hr TAKE 1 TABLET BY MOUTH EVERY DAY IN THE MORNING 10/09 completed Not Available Not Available Not Available Suboxone 8 mg-2 mg sublingual film DISSOLVE 2 FILMS UNDER THE TONGUE DAILY active not taking Not Available Not Available Not Available Banophen 50 mg capsule TAKE 1 CAPSULE AT BEDTIME NEEDED FOR INSOMNIA 10/09 completed Not Available Not Available Not Available melatonin 10 mg capsule Take 1 capsule every day by oral route for 7 days. 12/20 completed pt done with med Not Available Not Available Not Available Trintellix 10 mg tablet TAKE 1 TABLET BY MOUTH EVERY DAY active Not Available Not Available No t Available Vitals Date Recorded Body weight Heart rate Oxygen saturation Oxygen saturation in Arterial blood by Pulse oximetry Systolic blood pressure Diastolic blood pressure Provider Name and Address Organization Details Last Updated DateTime 4 182930. 84 g 79 /min 98 % 98 % 136 mm[Hg] 76 mm[Hg] Patricia Juarez [facility] 4 07:37:33 Date Recorded Body height Body mass index (BMI) Body weight Provider Name and Address Organization Details Last Updated DateTime 12/10/2024 175.26 cm 57.7 kg/m2 479569.18 g Connie Mendoza MA [facility] 12/10/2024 11:07:14 Date Recorded Body height Body mass index (BMI) Body mass index (BMI) [Percentile] Per age and sex Body weight Heart rate Oxygen saturation Oxygen saturation in Arterial blood by Pulse oximetry Heart rate Heart rate Heart rate Oxygen saturation Oxygen saturation in Arterial blood by Pulse oximetry Oxygen saturation Oxygen saturation in Arterial blood by Pulse oximetry Oxygen saturation Oxygen saturation in Arterial blood by Pulse oximetry Systolic blood pressure Diastolic blood pressure Systolic blood pressure Diastolic blood pressure Systolic blood pressure Diastolic blood pressure Systolic blood pressure Diastolic blood pressure Provider Name and Address Organization Details Last Updated DateTime 3 175.26 cm 55.5 kg/m2 99 % 512466. 43 g 81 /min 97 % 97 % 92 /min 82 /min 89 /min 97 % 97 % 97 % 97 % 97 % 97 % 114 mm[Hg] 70 mm[Hg] 102 mm[Hg] 60 mm[Hg] 114 mm[Hg] 80 mm[Hg] 100 mm[Hg] 68 mm[Hg] BROCK Guzman [facility] 3 14:15:56 Date Recorded Body height Body mass index (BMI) Body mass index (BMI) [Percentile] Per age and sex Body weight Heart rate Oxygen saturation Oxygen saturation in Arterial blood by Pulse oximetry Systolic blood pressure Diastolic blood pressure Provider Name and Address Organization Details Last Updated DateTime 3 175.26 cm 56.3 kg/m2 99 % 649105. 79 g 102 /min 97 % 97 % 130 mm[Hg] 68 mm[Hg] BROCK Guzman [facility] 3 11:08:12 Social History Question Answer Notes LastModified by Organizat ion Details LastModified Time Tobacco Smoking Status Current [facility]/09[facility]2022 18:43:17 What Was The Date Of Your Most Recent Tobacco Screening? 10/09/2022 [email or web address] Information not available 10/09/2022 Sex: Male Functional Status None recorded. Mental Status None recorded. Family History Nothing Reported. Medical History Condition Response depression Y Immunizations Vaccine Type Date Status Note Provider Nam e and Address Organization Details Recorded Time COVID-19, mRNA, LNP-S, PF, 30 mcg/0.3 mL dose 08/13/2021 completed Not Available [facility] 3 19:23:46 COVID-19, mRNA, LNP-S, PF, 30 mcg/0.3 mL dose 09/13/2021 completed Not Available [facility] 19:23:46 Tdap 06/10/2014 completed Not Available [facility] 06/25/2023 19:23:46 Past Encounters Encounter ID Performer Location Encounter Start Date Encounter Closed Date Diagnosis/Indication Diagnosis SNOMED-CT Code Diagnosis ICD10 Code Diagnosis Note [id number] Lacey Valreio NP [facility] [address] [place] [address] 04/27/2011 14:31:49 04/27/2011 15:17:44 [id number] [facility] [address] [place] [address] 12/16/2021 11:20:51 12/16/2021 13:20:15 Acute upper respiratory infection 41119742 J06.9 Exacerbati on of intermittent asthma 896442701 J45.21 Impacted c erumen in right ear 2643208538 270917 H61.21 [id number] ENMA Patton [address] [address] 12/21/2021 14:22:48 12/21/2021 15:41:08 Productive cough 26187118 R05.9 Thoracic back pain 39162 8004 M54.6 Acute bronchitis 2563352 2 J20.9 [id number] ENMA Silvestre [facility] [address] [facility] [address] [place] [address] 10/10/2022 09:19:13 10/10/2022 10:30:05 Hypothyroidism 26971797 E03.9 Managed with levothyrox ine 25 MCG dailyCheck TSH Obesity 808994457 E66.9 We have discussed the adverse health consequenc es of obesity today as well the benefits of weight loss. We have focused on both diet and exercise management strategies in our discussion today. Will continue to monitor and assess. Asthma 874229340 J45.90 9 Managed with Flovent twice daily and albuterol as neededRefi ll Flonase today per his request Bipolar disorder 5136295 4 F31.9 Patient describes a significan t psychiatri c past medical historyHe was hospitaliz ed at [facility] psychiat[facility] c unit from January to July 2022He states he was treated with Haldol, Abilify, Lexapro, hydroxyzin e, Ativan, AdderallHe is currently off all psych medication s since he ran out of prescripti onsHe is on a wait list for [facility] and would like referral to [facility] psychiatry We agreed to refill his Lexapro and hydroxyzin e today we agreed to partial program referral to further stabilize him on medication sGiven records from [facility] indicating history of snorting adderall and no records of ativan on masspat will not refill adderall or benzo at this timePsych referral in placeFollo w-up 1 month, sooner if needed Hypertensive disorder 38 388453 I10 Blood pressure elevated today 142/78Pati ent reports he is following with [facility] cardi[facility] Records from [facility] indicate :normal echo May 2022 histr oy of prior [facility] but no records available ecg with possible anterior MIhe would like to establish with cardio locally given transporta tion issuesHe is not currently taking any blood pressure medication sWe discussed lifestyle interventi on including exercise, diet, sodium reductionp atient is unable to check blood pressure at homeFollow -up 1 month Sleep apnea 13444191 G47 .30 Patient needs new sleep study to qualify for CPAP [id number] CARMELINA ROJAS NP [facility] [address] [place] [address] 11/15/2022 13:03:44 11/15/2022 14:17:32 Palpitations 53734157 R00.2 Has had previous normal event monitors. Reports increasing symptoms since restarting Haldol recently. We will obtain a 24-hour Holter monitor to again rule out any significan t underlying arrhythmia . QTC is within normal limits today. Case reviewed. Agree with plan. Symptoms could be due to anxiety, psychiatri c medication as a side effect but reasonable to obtain a Holter monitor. Low likelihood of finding a cardiac issue. CN Hypertensive disorder 38 347228 I10 History of hypertensi on. Reportedly previously on antihypert ensive agents. Now on no medication s with good blood pressure control. Monitor, but there is no role for further medical therapy at this point. [id number] ENMA Silvestre [facility] [address] [facility] [address] [place] [address] 01/10/2023 12:01:08 01/10/2023 13:25:31 Bipolar disorder 89217213 F31.9 Patient describes a significan t psychiatri c past medical historyCur rently stable with no SIShe was hospitaliz ed at [facility] psychiatri c unit from January to Julyhe is currently in [facility] respite program in [place] where she states he is taking lamictal 25 mg daily Nausea and vomiting 1692 1999 R11.2 Nausea, vomiting and diarrhea x 1.5 weekPatien t stopped using benzodiaza pines, opioids and alcohol around that timeShe has since been to ED and started on suboxone for OUDShe also has some LUQ discomfort Vitals stable and no concerning findings on examCheck cbc, cmp, lipaseReco mmend stool studies but she declinedWi ll add dicyclomin e prn and omeprazole We discussed that if she become dizzy, has severe pain or unable to eat/ drink at home she needs to go to EDF/U 1 week, sooner if needed Increased frequency of urination 421074451 R35.0 Chronic urinary frequencyN ormal UA today [id number] ENMA Silvestre [facility] [address] [address] 12/20/2022 09:38:59 12/20/2022 11:54:54 Hypothyroidism 63737594 E03.9 Managed with levothyrox ine 25 MCG dailyRecen t normal TSH Obesity 318080285 E66.9 We have discussed the adverse health consequenc es of obesity today as well the benefits of weight loss. We have focused on both diet and exercise management strategies in our discussion today. Will continue to monitor and assess. Asthma 731342056 J45.90 9 Managed with Flovent twice daily and albuterol as needed until she ran out of Floventshe ended up in ED with asthma attack per her reportAgre ed to resume FloventJayl l reviewed ED notes when received Bipolar disorder 6526330 4 F31.9 Patient describes a significan t psychiatri c past medical historyCur rently stable with no SIShe was hospitaliz ed at [facility] psychiatri c unit from January to Julyhe states he was treated with Haldol, Abilify, Lexapro, hydroxyzin e, Ativan, AdderallSh e is currently in [facility] respite program in [place] where she states he is taking lamictal and injectionS he was accepted as a patient at [facility] but never called for appointmen tPt agreed to call psych today to schedule appointmen tFollow up 1 month, sooner if needed Edema of l ower extremity [id number] R60.0 Given her recent SOB and edema will check pr bnp and f/u 2-4 weeks Urinary symptoms [id number] R39.9 urinary frequency, episodic incontinen ce and intermitte ntly dysuriapt reports these are chronic and she has been [facility] in the past with DDAPVWill check UA, culture, psa todayShe would like to see urology locally [id number] ENMA Silvestre [facility] [address] [place] [address] 02/16/2023 10:59:27 02/16/2023 12:00:05 Obesity [id number] E66.9 We have discussed the adverse health consequenc es of obesity today as well the benefits of weight loss. We have focused on both diet and exercise management strategies in our discussion today. Will continue to monitor and assess. Pain of le ft ankle joint [id number] M25.572 L ankle pain following minor injuryPati ent is partial weight bearingHer exam is notable for lateral malleolus tenderness and decreased ROMWill obtain xray and f/u with resultShe may continue ice, rest, compressio n , elevation [id number] Heydi Phillips NP [facility] [address] [place] [address] 11/01/2024 07:27:11 11/01/2024 11:51:56 Bipolar II disorder [id number] F31.81 denies SIdenies psychotic episodedis cussed plan to bridge medication pending psychiatri c medication management Low back pain [id number] M54.50 Short course treatment for lumbar back pain with sciaticaPa tient verbalizes understand ing is amenable to PTfollow up in 1-2 weeks Hypothyroidism 23676721 E03.9 Current stated dose levothyrox ine 25mcg. not takingwill check thyroid labs prior to restart for dosing accuracy Obesity 247749345 E66.9 Body mass index 40+ - severely obese 606765806 Z68.43 referral to medical weight loss Housing in stability due to imminent risk of homelessness [id number] Z59.811 [facility] to [facility] risk of sexually transmitted infection 311789655 Z20.2 Financial insecurity [phone] Z59.86 Not working. Request for community support.Re ferral to [facility] Food insecurity [id number] 3 Z59.41 Does not have financial resources to buy foodReferr al to [facility] Hormonal requirement [phone] R94.7 Patient request for HRT for transgende r female status [id number] Primary Care Nurse [facility] [address] [place] [phone] 12/10/2024 10:25:38 12/10/2024 13:31:39 Obesity 125286996 E66.9 [id number] Coleen Sabillon NP [facility] [address] [place] [phone] 12/24/2024 11:14:09 12/24/2024 12:09:19 Body mass index 30+ - obesity [id number] Z68.43 Jose presents for OM consult. Lowest and highest adult weight: 380# was the lowest adult weight and highest adult weight 425# a few months ago.Curren t weight: 390#Curren t Diet: Breakfast: heavy on carbs...br ead, bagel with waffles, pancakes, gaffney, sausage and syrup. Lunch: Eats big portions (I eat my feelings). Yesterday spent $83 on [employer] food and ate it all. Dinner: Doesn't eat dinner but snacks at midnight. Drinks chocolate and strawberry milk.Exerc ise habits: No formal exercise. Shortness of breath due to sizeDietin g/bariatri c surgery history: Has lost 35# by not eating. She's tried WW and other diets but they are too restrictiv e.History of substance use disorder: Tobacco1-1 .5ppd and Vapes. Drugs: Crack Cocaine and Heroin but has not used in 5 months. Alcohol: Fruity drinks but has been sober for 3 months.Edu cation: 11th gradeProfe ssion: Gets government assistance .---on disability Home situation: Sleeps in a respite homePerson al and weight goals: 230#Bjorn rs: Needs to learn new coping skills. They are an emotional eaterMeds tried: Ozempic but did not lose weight. It stopped cravings but they did not lose weight.Robert ght related Complicati ons: Shortness of breath. Back, knee and hip painH/O BED? YesSleep apnea? ScoreH/O or FH of Medullary thyroid cancer?Lior n: Referral for a bariatric surgical consult per patient request. Has tried GLP-1 med in the past without success. Referral to nutritioni st. They have been clean from alcohol and drugs for 5+ months.Alfred krause follow up in February. I spent a total of 50 minutes today on this patient encounter which included: ? Preparing to see the patient with review of medical record including prior visits ? Obtaining history and performing a medically appropriat e exam. ? Ordering medication s ? Documentin g clinical informatio n in the health record Folic acid deficiency 19 5018812 E53.8 Will begin Folic acid 400mcg daily. Vitamin D deficiency 347 98800 E55.9 Will begin 2000 i.u. daily Insulin resistance 72022 5000 E88.819 TAMIKA IR level is 17.7. We have discussed the adverse health consequenc es of obesity today as well the benefits of weight loss. We have focused on both diet and exercise management strategies in our discussion today. Referral to nutritioni and bariatric surgeon . Will continue to monitor and assess. Snoring [id number] R06.83 Has an order for a sleep study. Health Concerns Section Related Observation LastModified by Organization Detai ls LastModified Time None Recorded Concern Status LastModified by Organization Details LastModified Time None Recorded Advance Directives Directive None Recorded Payers Insurance Date Sequence Insurance Name Policy Number Policy Pate Covered Member ID Pate Member ID Guarantor Name 02/18/2025 1 [place] [facility] Kamran Bo [id number] Kamran Bo Notes Date Note Type Note Provider Name and Address Organization Details Recorded Time 3 text/html Pt. presents in office today for hypertension and bipolar. 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 anterior VA, HTN, hypothyroidism, obesity, MIRA She presents today to follow up bipolar Pt is currently in [facility] in [facility] is being treated with lamictal 25 mg dailyFeels his mental health is significantly improvedHx of cuttingNo SI or self harm currentlyHx of psych hospitalization [facility] January through Julyhe states mood has been up and downNo SI currently She was in the ED 01-02-23 at [facility] [place] [facility] received section 12 from [facility] after she spoke about taking fentanyl and there was concerned about SIShe had eval with [facility] and was clearedPt states she had overdose from heroin around the same time and was given narcan On 01-07-23 she returned to ED and was treated for withdrawal symptomsShe uses IN heroin 1-2 g/ dailyAlso states she was using xanax 30 mg daily and drinking 3-4 small bottles pf whiskey per dayShe was started on suboxone 8 mg BID and continued by CSOShe is still having vomiting and diarrheaNo dizziness except with sudden change in positionMild LUQ painShe states zofran did not helpBP has been up and down at home Alcon Blakely MD [address] [place], [phone], [facility] 01/11/2023 13:28:37 3 text/html Pt. presents in office today for ankle pain and nutrition refer . 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 02/17/2023 10:35:16 4 text/html pt presents today for f/u ER, stomach issues, pt last seen 02/16/23 with sergio. RL Carmela Bo, age 23 yrs presents for low back pain Left sided lumbar back pain with radiculopathy. Not due to injury or trauma. Alleviated with gabapentin. No trial of PT. Is amenable.Pain is intermittent. achy pain radiates to left hamstring. Rates as moderate. Patient request for support in HRT for transitioning transgender female, started process with estrogen, no longer taking. Request for HRT. Discussed Endocrine referralPatient describes SDOH barriers to care including transportation, unstable housing, lack of workCurrently residing with a family memberMentions was incarcerated for illegal substance related chargesPast use of opiods, most recent cocaine+ tobacco use Hx of VA related to cocaine use, no records availableADHD , treated with stimulant med, multiple prescribers noted on PDMP since 60, pt is keen for medical weight loss referralhypothyroid not taking medication.Former dose 25 mcg.Sleep apneaHx HTN, BP 136/76Pt states he has borderline personality diagnosisHx PTSDHx of suidicality, overdose on Seroquel (2021) Denies SI today Alcon Blakely MD [address] [facility], [place], [address], [facility] 11/05/2024 08:45:41 5 text/html pt presents to office for ekg, labs and measurements.-ROSEMARIE Sabillon NP [address] [place], [address], [facility] 12/10/2024 11:13:39 5 text/html Jose presents for OM consult. Lowest and highest adult weight: 380# was the lowest adult weight and highest adult weight 425# a few months ago.Current weight: 390#Current Diet: Breakfast: heavy on carbs...bread, bagel with waffles, pancakes, gaffney, sausage and syrup. Lunch: Eats big portions (I eat my feelings). Yesterday spent $83 on [employer] food and ate it all. Dinner: Doesn't eat dinner but snacks at midnight. Drinks chocolate and strawberry milk.Exercise habits: No formal exercise. Shortness of breath due to sizeDieting/bariatric surgery history: Has lost 35# by not eating. She's tried WW and other diets but they are too restrictive.History of substance use disorder: Tobacco1-1.5ppd and Vapes. Drugs: Crack Cocaine and Heroin but has not used in 5 months. Alcohol: Fruity drinks but has been sober for 3 months.Education: 11th gradeProfession: Gets government assistance.---on disabilityHome situation: Sleeps in a respite homePersonal and weight goals: 230#Barriers: Needs to learn new coping skills. They are an emotional eaterMeds tried: Ozempic but did not lose weight. It stopped cravings but they did not lose weight.Weight related Complications: Shortness of breath. Back, knee and hip painH/O BED? YesSleep apnea? Score Gissell Montano MD [address] [place] [address], [place], [phone], [facility] 12/27/2024 20:07:26
== END 2025-04-07 22:59 | disposition left against medical advice (07) ==
PROVIDERS: Physician Assistant; Emergency Provider Emergency Medicine
DX: R10.9 Unspecified abdominal pain (principal); R11.2 Nausea with vomiting, unspecified; Z03.818 Encounter for observation for suspected exposure to other biological agents ruled out; J45.909 Unspecified asthma, uncomplicated; Z79.82 Long term (current) use of aspirin; Z79.899 Other long term (current) drug therapy; Z53.29 Procedure and treatment not carried out because of patient's decision for other reasons
CPT/HCPCS: 0241U; 80053; 83690; 85025; 99281; 99283

== ENCOUNTER 2025-04-15 20:32 | Emergency (ER) | payer MEDICAID, SELFPAY ==
--- NOTE | 2025-04-15 | ECG_ITS ---
Test Reason : SYNCOPE Blood Pressure : */* mmHG Vent. Rate : 84 BPM Atrial Rate : 84 BPM P-R Int : 164 ms QRS Dur : 96 ms QT Int : 372 ms P-R-T Axes : 23 -36 6 degrees QTcB Int : 439 ms Normal sinus rhythm with sinus arrhythmia Left axis deviation Cannot rule out Anterior infarct , age undetermined Abnormal ECG When compared with ECG of 20-Apr-2024 10:21, No significant change was found Referred By: Generic ED Physician Electronically Signed By: Guanakito Mares
--- NOTE | ~2025-04-15 | XR_ITS ---
CLINICAL HISTORY: chest pain 1 view chest x-ray Comparison: None Findings: Lungs are clear without acute infiltrates. No pneumothorax. Heart size normal. No acute bony abnormalities. Impression: No acute processes This document has been electronically signed by: John Arizmendi MD on 04/15/2025 21:23:30
--- NOTE | ~2025-04-15 | CT_ITS ---
CLINICAL HISTORY: neck trauma fall CT cervical spine without contrast Comparison: None Findings: No acute fracture or dislocation. Posterior alignment is normal. No significant degenerative change. No radiopaque foreign bodies. Impression: No acute processes This document has been electronically signed by: John Arizmendi MD on 04/15/2025 22:14:16
--- NOTE | ~2025-04-15 | CT_ITS ---
CLINICAL HISTORY: head trauma CT head without contrast Comparison: None Findings: No intracranial mass, midline shift, hydrocephalus, or acute hemorrhage. No acute process in sinuses or mastoids. No acute bony abnormality. Impression: No acute intracranial process This document has been electronically signed by: John Arizmendi MD on 04/15/2025 22:14:00
[2025-04-15 20:35] VITALS: BP 123/72; PULSE 88; RESP 18; TEMP 37.1; O2SAT 98; BMI 57.1
[2025-04-15 20:49] LABS: Glucose, Whole Blood 107 mg/dL (60-115)
[2025-04-15 21:05] LABS: MANUAL DIFF FLAG NO
[2025-04-15 21:06] LABS: Basophils Absolute Auto 0.1 X10*3/uL (0.0-0.2); Basophils Percent Auto 0.5 % (0-2); Eosinophils Absolute Auto 0.5 X10*3/uL (0.0-0.4); Eosinophils Percent Auto 3.5 % (0-4); Hematocrit 43.7 % (42.0-52.0); Imm Gran Abs Auto 0.07 X10*3/uL (0.00-0.03); Imm Gran Pct Auto 0.5 % (0.0-0.4); Lymphocytes Absolute Auto 3.2 X10*3/uL (1.2-4.9); Lymphocytes Percent Auto 24.4 % (20-40); Mean Corpuscular HGB Conc 34.3 g/dl (31.0-36.0); Mean Corpuscular Hemoglobin 28.9 pg (27.0-33.0); Mean Corpuscular Volume 84.2 fL (80.0-98.0); Mean Platelet Volume 8.7 fL (9.4-12.4); Monocytes Absolute Auto 0.9 X10*3/uL (0.1-1.2); Monocytes Percent Auto 6.7 % (2-11); Neutrophils Absolute Auto 8.5 x10*3/uL (2.0-8.3); Neutrophils Percent Auto 64.4 % (45-73); Platelet Count 372 X10*3/uL (160-400); Red Blood Count 5.19 X10*6/uL (4.60-5.80); Red Cell Distribution Width 13.3 % (11.0-16.0); White Blood Count 13.3 X10*3/uL (4.8-10.8)
[2025-04-15 21:23] LABS: Alanine Aminotransferase 46 U/L (0-40); Albumin Level 3.8 g/dL (3.5-5.0); Alkaline Phosphatase 51 U/L (39-117); Anion Gap 14 (12-20); Aspartate Amino Transferase 33 U/L (5-37); Bilirubin Total 0.2 mg/dL (0.0-1.0); Blood Urea Nitrogen 12 mg/dL (9-16); Calcium 8.7 mg/dL (8.4-10.2); Carbon Dioxide 24 mmol/L (22-29); Chloride 105 mmol/L (96-108); Creatinine Clr Calc Pharmacy 283.7; Estimated Glomerular Filt Rate > 60; Glucose Random 92 mg/dL (60-115); Potassium 3.6 mmol/L (3.3-5.1); Sodium 139 mmol/L (135-145); Total Protein 7.6 g/dL (6.5-8.0)
--- OUTSIDE RECORDS SUMMARY | 2025-04-15 21:24 | XMS_ITS | Encounter Summary ---
Author Organization [employer] Address [address] [place] [address] Care Team Providers Care Lithopone Mill Worker Name Role Phone Provider, Not In System Primary Care Provider Un available Encounter Details Date Type Department Care Team ([facility] st Contact Info) Description 02/18/[address] [phone] Lacey Jeronimo FNP [address] [place], [place] [phone] Social History Tobacco Use Types Packs/Day Years [...] AM EDT Armani Willis Psych Director at [facility] stated pt sign release for for provider to speak with him on pt mental sanjana and treatment. Stated he spoke to pt after his appointment with provider last week. Informed that we have no knowledge of an appointment last week. Per our last record pt was seeing a provider [facility]. Provider would like commercial loan underwriter to check with LM and see if provider knowsanything about this pt changing md. Told to also check with pt. * Telephone Encounter - Pauly Paul - 02/18/2025 11:08 AM EDT Armani Willis Psych Director at [facility] lm on vmail at 1049 am asking that LM call him to assist in medical/mental health treatment. documented in this encounter Plan of Treatment Not on file documented as of this encounter Visit Diagnoses Not on filedocumented in this encounter Additional Health Concerns Assessment Noted Time PHQ-9 Depression Total Score: 27 024 4:30 PM EDT documented as of this encounter Care Teams Lithopone Mill Worker Relationship Specialty Start Date End Date Provider, Not In System PCP - General Family Medicine 01/24/25 documented as of this encounter
--- OUTSIDE RECORDS SUMMARY | 2025-04-15 21:24 | XMS_ITS | Encounter Summary ---
Author Organization [facility] Address [address] [place] [address] Care Team Providers Care Director Experimental Medicine Name Role Phone Ed, [facility]-Attn: Primary Care Provider Unavailable Encounter Details Date Type Department Care Team (Late st Contact Info) Description 08/17/2018 Lab Requisition [facility] Lab [address] [place] [address] Rubens Terry MD [address] [place] [address] Encounter for screening for infections with predominantly [...] of this encounter Procedures * Due to [place] [employer] law, this organization might not be sharing negative HIV tests. Procedure Name Priority Date/Time Associated Diagnosis Comments CHLAMYDIA/NEISSERI A GONORRHEA RNA Routine 08/17/2018 2:00 PM EDT Encounter for screening for infections with predominantly sexual mode of transmission documented in this encounter Results * Due to [place] [employer] law, this organization might not be sharing negative HIV tests. * Chlamydia/Neisseria gonorrhoeae RNA (08/17/2018 2:00 PM EDT) Chlamydia trachomatis RNA, TMA NOT DETECTED NOT DETECTED 08/18/2018 2:45 PM EDT [facility] Neisseria Gonorrhoeae RNA, TMA NOT DETECTED NOT DETECTED 08/18/2018 2:45 PM EDT [facility] Comment: This test was performed using the APTIMA COMBO2 Assay ([employer] The analytical performance characteristics of this assay, when used to test SurePath specimens have been determined by [employer]. ?? Urine specimen (specimen) Voided urine specimen / Unknown 08/17/2018 2:00 PM EDT 08/17/2018 6:14 PM EDT Narrative JANETT JEREZ - 08/18/2018 2:45 PM EDT [facility] Received Date: us Rubens Terry MD LAB URINE ORDERABLES Final Re sult [facility] [address], [place] [address], [place] [phone] [facility] [address], [place] [address], [place] [phone] documented in this encounter Visit Diagnoses Diagnosis [...] documented as of this encounter Care Teams Director Experimental Medicine Relationship Specialty Start Date End Date Ed, [facility]-Attn: PCP - General 12/25/24 documented as of this encounter
--- OUTSIDE RECORDS SUMMARY | 2025-04-15 21:24 | XMS_ITS | Encounter Summary ---
Author Organization [facility] Address [address] [place] [address] Care Team Providers Care Entry Level Sales Consultant Name Role Phone [facility]-Attn: Primary Care Provider Unavailable Encounter Details Date Type Department Care Team (Late st Contact Info) Description 08/06/2018 Lab Requisition [facility] Lab [address] [place] [address] Man, John Andrew MD [address] [place] [address] Urinary tract infection Social History Tobacco Use [...] of this encounter Procedures * Due to [place] [employer] law, this organization might not be sharing negative HIV tests. Procedure Name Priority Date/Time Associated Diagnosis Comments URINE CULTURE, ROUTINE Routine 08/06/2018 11:15 AM EDT Urinary tract infection documented in this encounter Results * Due to [place] [employer] law, this organization might not be sharing negative HIV tests. * Urine Culture, Routine (08/06/2018 11:15 AM EDT) Urine Culture Workup No growth (<1,000 CFU/mL) after 24 hours [facility] 08/08/2018 9:37 AM EDT [facility] Urine specimen (specimen) Urine specimen collection, clean catch / Unknown 08/06/2018 11:15 AM EDT 08/06/2018 1:42 PM EDT us John Kern MD LAB MICROBIOLOGY - GENERAL ORDERABLES Final Result [facility] [address] [place] [address], documented in this encounter Visit Diagnoses Diagnosis [...] documented as of this encounter Care Teams Entry Level Sales Consultant Relationship Specialty Start Date End Date Ed, [facility]-Attn: PCP - General 12/25/24 documented as of this encounter
--- OUTSIDE RECORDS SUMMARY | 2025-04-15 21:24 | XMS_ITS | Clinical Summary ---
Author Organization [facility] Address [address] [place] [address] Phone Care Team Providers Care Ramp Jockey Name Role Phone JaimesRoxana jayrandolph Talbert DO Primary Care Provider [phone] Allergies No known active allergies Medications docusate [...] 9:30 AM EST Emergency [facility] [address] [place] [address] Shannan Girard MD Steinberg, MD mK Gamez, Matteo Soriano MD Discharge Disposition: Home or Self Care from Last 3 Months Social History Tobacco [...] ECG 12-LEAD STAT 01/18/2025 7:28 PM EST from Last 3 Months Results * (ABNORMAL) Urinalysis w/reflex Urine Culture (01/18/2025 10:08 PM EST) COLOR Yellow Yellow [facility] CLARITY Clear [facility] GLUCOSE Negative Negative [facility] BILI 1+(A) Negative [facility] KETONES 1+(A) Negative [facility] SPECIFIC GRAVITY >1.030 1.005 - 1.030 [facility] BLOOD 3+(A) Negative [facility] PH 5.5 5.0 - 8.0 [facility] Protein-UA Negative Negative [facility] NITRITE Negative Negative [facility] Leukocyte esterase, ur Negative Negative [facility] Urine (Urine) 01/18/2025 10: 08 PM EST 01/18/2025 10:12 PM EST us Shannan Girard MD URINE ORDERABLES Final Re sult [facility] [address] [place] [address] * (ABNORMAL) Urine sediment (01/18/2025 10:08 PM EST) WBC 0-4(A) NONE SEEN /hpf [facility] RBC 11-20(A) NONE SEEN /hpf [facility] URINE EPITHELIAL 5-10(A) NONE SEEN [facility] MUCUS 3+(A) NONE SEEN /hpf [facility] BACTERIA Trace(A) NONE SEEN /hpf [facility] CAST 0-2 [facility] Comment:GRANULAR CAST 01/18/2025 10:0 8 PM EST 01/18/2025 10:12 PM EST Shannan Girard MD URINE ORDERABLES Final Re sult Performing Organization Address [facility] Co de Phone Number [address] [address] * (ABNORMAL) Toxicology screen, urine (01/18/2025 10:08 PM EST) Pathologist [facility] URINE CANNABINOIDS NONE DETECTED NONE DETECTED [facility] Comment:Cutoff: 50 ng/mL URINE COCAINE METAB Positive(A) NONE DETECTED [facility] Comment:Cutoff: 300 ng/mL URINE AMPHETAMINES Positive(A) NONE DETECTED [facility] Comment:Cutoff: 1000 ng/mL URINE METHADONE NONE DETECTED NONE DETECTED [facility] Comment:Cutoff: 300 ng/mL URINE OPIATES NONE DETECTED NONE DETECTED [facility] Comment:Cutoff: 300 ng/mL URINE PHENCYCLIDINE NONE DETECTED NONE DETECTED [facility] Comment:Cutoff: 25 ng/mL URINE OXYCODONE NONE DETECTED NONE DETECTED [facility] Comment:Cutoff: 300 ng/mL URINE BARBITURATES NONE DETECTED NONE DETECTED [facility] Comment:Cutoff: 200 ng/mL URINE BENZODIAZEPINE NONE DETECTED NONE DETECTED [facility] Comment:Cutoff: 200 ng/mL URINE BUPRENORPHINE NONE DETECTED NONE DETECTED [facility] Comment:Cutoff: 5 ng/mL Fentanyl, urine NONE DETECTED NONE DETECTED [facility] Comment: Cutoff: 5 ng/mL INTERPRETATION FOR TOXICOLOGY PANEL: These results are unconfirmed and should be used for Medical Treatment purposes only. Urine (Urine) 01/18/2025 10: 08 PM EST 01/18/2025 10:13 PM EST Shannan Girard MD URINE ORDERABLES Final Re sult Performing Organization Address City/[facility]/ZIP Co de Phone Number [address] [address] * Ethanol, blood (01/18/2025 8:53 PM EST) ETHANOL <10 <10 mg/dL [facility] Blood 01/18/2025 8:53 PM EST 01/18/2025 8:58 PM EST Shannan Girard MD LAB BLOOD ORDERABLES Silvia l Result [address] [address] * (ABNORMAL) LFTs (hepatic panel) (01/18/2025 8:53 PM EST) Pathologist [facility] ALKALINE PHOSPHATASE 64 39 - 117 U/L [facility] TOTAL BILIRUBIN 0.4 0.0 - 1.2 mg/dL [facility] DIRECT BILIRUBIN 0.2 0.0 - 0.2 mg/dL [facility] Bilirubin (Indirect) 0.2 0 - 1.5 mg/dL [facility] AST 42(H) 0 - 37 U/L [facility] ALT 50(H) 0 - 40 U/L [facility] TOTAL PROTEIN 7.8 6.5 - 8.0 g/dL [facility] ALBUMIN 3.8(L) 3.9 - 4.8 g/dL [facility] GLOBULIN 4.0 1 - 4.8 g/dL [facility] A/G Ratio 0.95(L) 1.00 - 4.80 RATIO [facility] Blood 01/18/2025 8:53 PM EST 01/18/2025 8:58 PM EST us Shannan Girard MD LAB BLOOD ORDERABLES Silvia l Result [address] [address] * (ABNORMAL) CBC and differential (01/18/2025 8:53 PM EST) WBC 14.43(H) 4.00 - 11.00 K/uL [facility] RBC 4.93 4.50 - 5.90 M/uL [facility] HGB 14.6 13.5 - 17.5 g/dL [facility] HCT 42.0 41.0 - 53.0 % [facility] PLT 368 150 - 450 K/uL [facility] MCV 85.2 80.0 - 100.0 fL [facility] MCH 29.6 27.0 - 31.0 pg [facility] MCHC 34.8 32.0 - 36.0 g/dL [facility] RDW 13.2 11.5 - 14.5 % [facility] MPV 8.6 8.4 - 12.0 fL [facility] NRBC 0.00 0.00 /100 WBCs [facility] ABSOLUTE NRBC 0.00 0.00 K/uL [facility] DIFF METHOD Auto [facility] NEUTS 58.0 48.0 - 76.0 % [facility] LYMPHS 30.9 18.0 - 41.0 % [facility] Comment: Moderate Atypical Lymphs MONOS 7.7 4.0 - 11.0 % [facility] EOS 2.5 0.0 - 5.0 % [facility] BASOS 0.4 0.0 - 1.5 % [facility] Granulocytes, immature (%) 0.5 0.0 - 0.9 % [facility] ABSOLUTE NEUTS 8.37(H) 1.92 - 7.60 K/uL [facility] ABSOLUTE LYMPHS 4.46(H) 0.72 - 4.10 K/uL [facility] ABSOLUTE MONOS 1.11(H) 0.16 - 1.10 K/uL [facility] ABSOLUTE EOS 0.36 0.00 - 0.50 K/uL [facility] ABSOLUTE BASOS 0.06 0.00 - 0.15 K/uL [facility] Granulocytes, immature 0.07 0.00 - 0.09 K/uL [facility] Blood 01/18/2025 8:53 PM EST 01/18/2025 8:58 PM EST us Shannan Girard MD LAB BLOOD ORDERABLES Silvia l Result [address] [address] * Troponin (01/18/2025 8:53 PM EST) Pathologist [facility] Troponin-T, HS Gen5 <6 0 - 14 ng/L [facility] 01/18/2025 8:53 PM EST 01/18/2025 8:58 PM EST us Shannan Girard MD LAB BLOOD ORDERABLES Silvia l Result Performing Organization Address City/[facility]/ZIP Co de Phone Number [address] [address] * Basic metabolic panel (01/18/2025 8:53 PM EST) Pathologist [facility] SODIUM 140 133 - 146 mmol/L [facility] CHLORIDE 102 96 - 108 mmol/L [facility] POTASSIUM 3.6 3.3 - 5.1 mmol/L [facility] CO2 22 21 - 35 mmol/L [facility] BUN 14 6 - 19 mg/dL [facility] CREATININE 0.70 0.5 - 1.5 mg/dL [facility] GLUCOSE 90 70 - 99 mg/dL [facility] CALCIUM 8.9 8.4 - 10.3 mg/dL [facility] EGFR >120 >59 mL/min/1.7 3m2 [facility] Comment:Estimated glomerular filtration rate calculated using the CKD-EPI refit equation. ANION GAP 20 10 - 20 mmol/L [facility] Blood 01/18/2025 8:53 PM EST 01/18/2025 8:58 PM EST us Shannan Girard MD LAB BLOOD ORDERABLES Silvia l Result [address] [address] * ECG 12-LEAD (01/18/2025 7:28 PM EST) Ventricular Rate EKG/MIN 91 BPM [facility] Atrial Rate 91 BPM [facility] AZ Interval 178 ms [facility] QRS Duration 104 ms [facility] QT Interval 372 ms [facility] QTC Interval 457 ms [facility] P [place] 31 degrees [facility] R Wave [place] -27 degrees [facility] T Wave [place] 5 degrees [facility] 01/18/2025 7:28 PM EST 01/19/2025 10:52 AM EST Narrative [facility] - 01/19/2025 10:52 AM EST Normal sinus rhythm Cannot rule out Anterior infarct , age undetermined Abnormal ECG When compared with ECG of 06-Jan-2025 21:57, No significant change was found Confirmed by Rocky Dubose ([id number]) on 01/19/2025 10:52:15 AM Matteo Barbour MD ECG ORDERABLES Final Resu lt [facility] from Last 3 Months [facility] [place] [id number] [place] [phone] Care Teams Ramp Jockey Relationship Specialty Start Date End Date Dinh Jaimes DO [address] [address] [place] [address] [email or web address] PCP - General Family Medicine 05/20/23 Additional Source Comments The information contained in this document represents components of the legal health record. It is not the complete legal health record.[facility]
--- OUTSIDE RECORDS SUMMARY | 2025-04-15 21:24 | XMS_ITS | Patient Health Record ---
Author Organization [facility] Address [address], [place] [id number] Care Team Providers Care Station Usher Name Role Phone Devan Graham Primary Care [...] Status W/U Status Risk Notes Problem Morbid obesity (disorder) (223972867) Morbid (severe) obesity due to excess calories (E66.01) Active confirmed Problem Sheltered homelessness ([id number] ) Sheltered homelessness (Z59.01) Active confirmed Plan Of Treatment No Information Insurance Providers Payer Name Payer Address Payer Phone Subscriber Number Group Number Insured Name Patient Relationship to Insured Coverage Start Date Coverage End Date [place] Standard [address] [place] [address] [id number] Kamran Bo Self - patient is the insured 3
--- OUTSIDE RECORDS SUMMARY | 2025-04-15 21:24 | XMS_ITS | Encounter Summary ---
Author Organization [employer] Address [address] [place] [address] Care Team Providers Care Physical Plant Manager Name Role Phone Lacey Jeronimo Primary Care Provider [phone] Provider, Not In System Primary Care Provider Un available Lacey Jeronimo Primary Care Provider [phone] Provider, Not In System Primary Care Provider Un available Encounter Details Date Type Department Care Team ([facility] st Contact Info) Description 09/16/[address] [phone] Lacey Jeronimo FNP [address] [place] [address] [phone] Social History Tobacco Use Types Packs/Day Years [...] with others, in a hotel, in a long term, living outside on the street, on a [...] thurs or fri last [facility] stomach and kidney problems, blood in his urine. Please call [phone] documented in this encounter Plan of Treatment Not on file documented as of this encounter Visit Diagnoses Not on filedocumented in this encounter Additional Health Concerns Assessment Noted Time PHQ-9 Depression Total Score: 024 4:30 PM EDT documented as of this encounter Care Teams Physical Plant Manager Relationship Specialty Start Date End Date Lacey Jeronimo FNP [address] [place] [phone] PCP - General Family Medicine 06/05/24 11/10/24 Provider, Not In System PCP - General Family Medicine 11/11/24 01/20/25 Lacey Jeronimo FNP [address] [place] [phone] PCP - General Family Medicine 01/21/25 01/23/25 Provider, Not In System PCP - General Family Medicine 01/24/25 documented as of this encounter
--- OUTSIDE RECORDS SUMMARY | 2025-04-15 21:24 | XMS_ITS | Encounter Summary ---
Author Organization [employer] Address [address] [place] [address] Care Team Providers Care Data Processing Operator Name Role Phone Lacey Jeronimo Primary Care Provider [phone] Provider, Not In System Primary Care Provider Un available Lacey Jeronimo Primary Care Provider [phone] Provider, Not In System Primary Care Provider Un available Encounter Details Date Type Department Care Team ([facility] st Contact Info) Description 09/02/[address] [phone] Lacey Jeronimo FNP [address] [place] [address] [phone] Social History Tobacco Use Types Packs/Day Years [...] with others, in a hotel, in a group home, living outside on the street, on a [...] days . Negative for covid. Please call [phone] documented in this encounter Plan of Treatment Not on file documented as of this encounter Visit Diagnoses Not on filedocumented in this encounter Additional Health Concerns Assessment Noted Time PHQ-9 Depression Total Score: 27 024 4:30 PM EDT documented as of this encounter Care Teams Data Processing Operator Relationship Specialty Start Date End Date Lacey Jeronimo FNP [address] [place] [phone] PCP - General Family Medicine 06/05/24 11/10/24 Provider, Not In System PCP - General Family Medicine 11/11/24 01/20/25 Lacey Jeronimo FNP [address] [place] [phone] PCP - General Family Medicine 01/21/25 01/23/25 Provider, Not In System PCP - General Family Medicine 01/24/25 documented as of this encounter
--- OUTSIDE RECORDS SUMMARY | 2025-04-15 21:24 | XMS_ITS | Clinical Summary ---
Author Organization [facility] Address [address] [place] [address] Care Team Providers Care Grassland Conservationist Name Role Phone [facility]-Attn: Primary Care Provider Unavailable Allergies No [...] Type Department Care Team Description 01/27/2025 Telephone [facility] [address] [place] [address] Energy Efficiency Finance Manager: Roxy Gonzalez MA from Last 3 Months [...] Screening Completed 08/17/2018 Procedures * Due to [place] state law, this organization might not be sharing negative HIV tests. Procedure Name Priority Date/Time Associated Diagnosis Comments HEPATITIS PANEL, ACUTE Routine 08/17/2018 2:07 PM EDT STD exposure CHLAMYDIA/NEISSERI A GONORRHEA RNA Routine 08/17/2018 2:00 PM EDT Encounter for screening for infections with predominantly sexual mode of transmission from Last 3 Months or Most Recently Relevant to Health Maintenance Results * Due to [place] state law, this organization might not be sharing negative HIV tests. * Hepatitis Panel, Acute (08/17/2018 2:07 PM EDT) Pathologist [facility] Hepatitis B Surface Antigen Interpretation Non-Reactive Non-Reactive 8 1:27 PM EDT [facility] Hepatitis A IgM Antibody Interpretation Nonreactive Nonreactive 8 1:27 PM EDT [facility] Hepatitis B Core IgM Antibody Interpretation Nonreactive Nonreactive 8 1:27 PM EDT [facility] Comment: Dietary supplements containing biotin may [...] Interpretation Nonreactive Nonreactive 8 1:27 PM EDT [facility] Blood specimen (specimen) Structure of peripheral vein / Unknown Venipuncture / Unknown 08/17/2018 2:07 PM EDT 08/17/2018 2:08 PM EDT us Rubens Terry MD LAB BLOOD ORDERABLES Final Re sult [facility] [address] [place] [address], * Chlamydia/Neisseria gonorrhoeae RNA (08/17/2018 2:00 PM EDT) Pathologist [facility] Chlamydia trachomatis RNA, TMA NOT DETECTED NOT DETECTED 08/18/2018 2:45 PM EDT [facility] Neisseria Gonorrhoeae RNA, TMA NOT DETECTED NOT DETECTED 08/18/2018 2:45 PM EDT [facility] Comment: This test was performed using the APTIMA COMBO2 Assay ([employer] The analytical performance characteristics of this assay, when used to test [facility] specimens have been determined by [facility]. ?? Urine specimen (specimen) Voided urine specimen / Unknown 08/17/2018 2:00 PM EDT 08/17/2018 6:14 PM EDT Narrative JANETT JEREZ - 08/18/2018 2:45 PM EDT [facility] Received Date: Rubens Terry MD LAB URINE ORDERABLES Final Re sult JANETT JEREZ [address] [facility] [address], [place] [address], [place] [phone] [facility] [address], [place] [address], [place] [phone] from Last 3 Months or Most Recently Relevant to Health Maintenance Insurance [facility] Advance Directives * Full Code (Latest Code Status on File) Date Activated Date Inactivated Comments 08/14/2021 8:05 PM 08/15/2021 9:52 PM * Full Code Date Activated Date Inactivated Comments 09/12/2017 10:07 AM 09/12/2017 3:00 PM Care Teams Grassland Conservationist Relationship Specialty Start Date End Date Ed, [facility]-Attn: PCP - General 12/25/24
--- OUTSIDE RECORDS SUMMARY | 2025-04-15 21:25 | XMS_ITS | Data Portability ---
Author Organization [facility], [employer] Address [address] [place] [address] Care Team Providers Care Real Estate Representative Name Role Phone RACHAEL JAIMESN Primary Care Provider Assessment Encounter Date Assessment Date Assessment LastModified [...] and/or Morbidity and Mortality of Patient Management: Not available 04/19/2023 08:24:59 05/03/2023 05/03/2023 Stable on current Adderall dose, getting good clinical benefit. Has appropriate behavioral health and social support. Reviewed his goals, recovery, safety plan in detail. Number and Complexity of Problems Addressed: moderate Amount and/or Complexity of Data to be Reviewed and Analyzed: moderate Risk of Complications and/or Morbidity and Mortality of Patient Management: [email or web address] Not available 05/03/2023 12:32:08 07/05/2023 07/05/2023 Stable [...] psychiatric follow up. Will reach out to [facility]. 45 minutes spent on clinical encounter including review of history and documentation on date of visit. Not available 07/09/2023 13:23:38 Plan of Treatment Reminders Order Date Submit Date Provider Last Modified By Organization Details Last Modified Time Details Appointments None recorded. Lab HbA1c (hemoglobin A1c), blood 2022 023 JOE [facility] (Centralized Electronic Ordering - All Locations), Patient Can Go To The Location Of Their Choice, [id number] 4 14:07:27 unlisted lab - drug tox screen 8, urine w/conf 2022 023 JOE [facility] (Centralized Electronic Ordering - All Locations), Patient Can Go To The Location Of Their Choice, [id number] 3 14:04:44 unlisted lab - urinalysis w/reflex culture 2022 023 JOE [facility] (Centralized Electronic Ordering - All Locations), Patient Can Go To The Location Of Their Choice, [address] 3 14:04:43 CMP, serum or plasma 2022 023 [facility]), Patient Can Go To The Location Of Their Choice, [address] 4 14:07:25 magnesium, serum or plasma 2022 023 [facility]), Patient Can Go To The Location Of Their Choice, [address] 4 14:07:28 phosphorus, serum or plasma 2022 023 [facility]), Patient Can Go To The Location Of Their Choice, [id number] 4 14:07:27 Referral None recorded. Procedures None recorded. Surgeries None recorded. Imaging None recorded. Medication Orders dextroamphe tamine-amph etamine ER 20 mg 24hr capsule,ext end release 2022 023 [facility] #87449, [address] [place], [place], [id number], 3 14:25:17 Adderall XR 30 mg capsule,ext ended release 2022 023 [facility] #99449, [address] [place], [place], [id number], 3 14:24:29 dextroamphe tamine-amph etamine ER 20 mg 24hr capsule,ext end release [address], [address] [place], [address], 3 14:24:25 aripiprazol e 5 mg tablet [address] [facility] [address]27136, [address] [place], [place], [id number], 3 09:48:10 gabapentin 300 mg capsule [address] [facility] #84518, [address] [place], [place], [id number], 3 13:55:48 venlafaxine 37.5 mg tablet [address]98[address], [address] [place], [place], [id number], 3 09:48:33 dextroamphe tamine-amph etamine ER 20 mg 24hr capsule,ext end release 2022 023 [email or web address] [facility] #95556, [address] [place], [place], [id number], 3 14:24:25 Patient TargetsNo targets recorded. Patient InstructionsNo instructions recorded. Reason for Referral None Reported. Results Created Date Observation Date Name Description Value Unit Range Abnormal Flag Note LastModifiedBy Organization Detail LastModifiedTime 05/14/20 24 05/15/2024 [id number] 4 10+OX YCODO NE+CR T-UNB UND amphetamines screen, urine TNP NG/mL Test not perfo rmed. No urine speci men recei ehsan. Not Available [facility] ([facility]) [address] [place], [address], 05/21/2024 14:07:24 05/14/20 24 05/15/2024 [id number] 4 10+OX YCODO NE+CR T-UNB UND barbiturates screen, urine TNP Test not perfo rmed Not Available [facility] ([facility]) [address] [place], [address], 05/21/2024 14:07:24 05/14/20 24 05/15/2024 [id number] 4 10+OX YCODO NE+CR T-UNB UND benzodiazepi shira screen, urine TNP Test not perfo rmed Not Available [facility] ([facility]) [address] [place], [address], 05/21/2024 14:07:24 05/14/20 24 05/15/2024 [id number] 4 10+OX YCODO NE+CR T-UNB UND cannabinoid screen, urine TNP Test not perfo rmed Not Available [facility] ([facility]) [address] [place], [address], 05/21/2024 14:07:24 05/14/20 24 05/15/2024 [id number] 4 10+OX YCODO NE+CR T-UNB UND cocaine (metab.) screen, urine TNP Test not perfo rmed Not Available [facility] ([facility]) [address] [place], [address], 05/21/2024 14:07:24 05/14/20 24 05/15/2024 [id number] 4 10+OX YCODO NE+CR T-UNB UND opiate screen, urine TNP Test not perfo rmed Not Available [facility] ([facility]) [address] [place], [address], 05/21/2024 14:07:24 05/14/20 24 05/15/2024 [id number] 4 10+OX YCODO NE+CR T-UNB UND oxycodone/ox ymorphone, urine TNP Test not perfo rmed Not Available [facility] ([facility]) [address] [place], [address], 05/21/2024 14:07:24 05/14/20 24 05/15/2024 [id number] 4 10+OX YCODO NE+CR T-UNB UND phencyclidin e screen, urine TNP Test not perfo rmed Not Available [facility] ([facility]) [address] [place], [address], 05/21/2024 14:07:24 05/14/20 24 05/15/2024 [id number] 4 10+OX YCODO NE+CR T-UNB UND methadone screen, urine TNP Test not perfo rmed Not Available [facility] ([facility]) [address] [place], [address], 05/21/2024 14:07:24 05/14/20 24 05/15/2024 [id number] 4 10+OX YCODO NE+CR T-UNB UND propoxyphene screen, urine TNP Test not perfo rmed Not Available [facility] ([facility]) [address] [place], [address], 05/21/2024 14:07:24 05/14/20 24 05/15/2024 [id number] 4 10+OX YCODO NE+CR T-UNB UND buprenorphin e, urine TNP Test not perfo rmed Not Available [facility] ([facility]) [address] [place], [address], 05/21/2024 14:07:24 05/14/20 24 05/15/2024 [id number] 4 10+OX YCODO NE+CR T-UNB UND creatinine, urine SENIOR CORPORATE RECRUITER Not Available [facility] ([facility]) [address] [facility], [place], [address], 05/21/2024 14:07:24 05/14/20 24 05/15/2024 [id number] 4 10+OX YCODO NE+CR T-UNB UND pH, urine SENIOR CORPORATE RECRUITER Not Available [facility] ([facility]) [address] [facility], [place], [address], 05/21/2024 14:07:24 05/14/20 24 05/15/2024 [id number] 4 10+OX YCODO NE+CR T-UNB UND please note: SENIOR CORPORATE RECRUITER Drug brand s, if liste d herei n, are trade das of their respe ctive military logistics specialist s. Not Available [facility] ([facility]) [address] [facility], [place], [address], 05/21/2024 14:07:24 05/14/20 24 05/21/2024 UA/M W/RFL X CULTU RE, ROUTI NE specific gravity TNP Test not perfo rmed. No urine speci men recei ehsan. Not Available [facility] ([facility]) [address] [facility], [place], [address], 05/21/2024 14:07:26 05/14/20 24 05/21/2024 UA/M W/RFL X CULTU RE, ROUTI NE pH TNP Test not perfo rmed Not Available [facility] ([facility]) [address] [facility], [place], [address], 05/21/2024 14:07:26 05/14/20 24 05/21/2024 UA/M W/RFL X CULTU RE, ROUTI NE urine-color SENIOR CORPORATE RECRUITER Not Available [facility] ([facility]) [address] [facility], [place], [address], 05/21/2024 14:07:26 05/14/20 24 05/21/2024 UA/M W/RFL X CULTU RELUCY appearance SENIOR CORPORATE RECRUITER Not Available [facility] ([facility]) [address] [facility], [place], [address], 05/21/2024 14:07:26 05/14/20 24 05/21/2024 UA/M W/RFL X CULTU RELUCY WBC esterase SENIOR CORPORATE RECRUITER Not Available [facility] ([facility]) [address] [facility], [place], [address], 05/21/2024 14:07:26 05/14/20 24 05/21/2024 UA/M W/RFL X CULTU RELUCY NE protein TNP Test not perfo rmed Not Available [facility] ([facility]) [address] [facility], [place], [address], 05/21/2024 14:07:26 05/14/20 24 05/21/2024 UA/M W/RFL X CULTU RELUCY NE glucose TNP Test not perfo rmed Not Available [facility] ([facility]) [address] [facility], [place], [address], 05/21/2024 14:07:26 05/14/20 24 05/21/2024 UA/M W/RFL X CULTMadiha RELUCY NE ketones TNP Test not perfo rmed Not Available [facility] ([facility]) [address] [facility], [place], [address], 05/21/2024 14:07:26 05/14/20 24 05/21/2024 UA/M W/RFL X CULTU RELUCY NE occult blood SENIOR CORPORATE RECRUITER Not Available [facility] ([facility]) [address] [facility], [place], [address], 05/21/2024 14:07:26 05/14/20 24 05/21/2024 UA/M W/RFL X CULTU RE, ROUTI NE bilirubin SENIOR CORPORATE RECRUITER Not Available [facility] ([facility]) [address] [facility], [place], [address], 05/21/2024 14:07:26 05/14/20 24 05/21/2024 UA/M W/RFL X CULTU RE, ROUTI NE urobilinogen ,semi-qn SENIOR CORPORATE RECRUITER Not Available [facility] ([facility]) [address] [facility], [place], [address], 05/21/2024 14:07:26 05/14/20 24 05/21/2024 UA/M W/RFL X CULTU RE, ROUTI NE nitrite, urine SENIOR CORPORATE RECRUITER Not Available [facility] ([facility]) [address] [facility], [place], [address], 05/21/2024 14:07:26 05/14/20 24 05/21/2024 UA/M W/RFL X CULTU RE, ROUTI NE microscopic examination SENIOR CORPORATE RECRUITER Not Available [facility] ([facility]) [address] [facility], [place], [address], 05/21/2024 14:07:26 05/14/20 24 05/21/2024 UA/M W/RFL X CULTU RE, ROUTI NE microscopic examination SENIOR CORPORATE RECRUITER Not Available [facility] ([facility]) [address] [facility], [place], [address], 05/21/2024 14:07:26 05/14/20 24 05/21/2024 UA/M W/RFL X CULTU RE, ROUTI NE urinalysis reflex SENIOR CORPORATE RECRUITER Not Available [facility] ([facility]) [address] [facility], [place], [address], 05/21/2024 14:07:26 05/14/20 24 05/15/[address] PROBL EM request problem TNP Test not perfo rmed. No urine speci men recei ehsan. TEST: [id number] 20898 4 10+Ox ycodo ne+Cr t-Unb und Not Available [facility] ([facility]) [address] [facility], [place], [address], 05/21/2024 14:07:28 05/14/20 24 05/21/[address] PROBL EM request problem TNP Test not perfo rmed. No urine speci men recei ehsan. TEST: [id number] 6 UA/M w/rfl x Cultu re, Routi ne Not Available [facility] ([facility]) [address] [facility], [place], [address], 05/21/2024 14:07:29 Result Notes None recorded. 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 [address], [facility] [address], [place], [address], [place] [facility] 3 13:41:01 Asthma 581500872 Active [address], [facility] [address], [place], [address], [place] [facility] 3 13:42:27 Unsheltered homelessness Active 2022 Swapnarandolph Jaimes DO [address] [place] [address], [address], [place], [address], [place] [facility] 3 08:21:30 Coronary arterioscleros is 86694236 Active 2022 Swapna Jaimes DO [address] [place] [address], [address], [place], [address], [place] [facility] 3 08:21:31 Attention deficit hyperactivity disorder, 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 Swapnarandolph Jaimes, DO [address] [facility], [facility], [place], [place], [address], [place] [facility] 3 08:21:32 Borderline personality disorder 72674885 Active 2022 Swapna Jaimes, DO [address] [facility], [facility] [address], [place], [address], [place] [facility] 3 08:21:33 [...] mass index (BMI) Body mass index (BMI) Percentile per age and sex Body height Oxygen saturation Oxygen saturation in Arterial blood by Pulse oximetry Heart rate Systolic blood pressure Diastolic blood pressure Provider Name and Address Organization Details Last Updated DateTime 3 573835. 01 g 59.9 kg/m2 99 % 175.26 cm 95 % 95 % 95 /min 138 mm[Hg] 80 mm[Hg] [facility] 3 15:45:43 Date Recorded Body height Body mass index (BMI) Body mass index (BMI) Percentile per age and sex Body weight Oxygen saturation Oxygen saturation in Arterial blood by Pulse oximetry Heart rate Systolic blood pressure Diastolic blood pressure Provider Name and Address Organization Details Last Updated DateTime 3 175.26 cm 58.6 kg/m2 99 % 006823. 17 g 98 % 98 % 88 /min 134 mm[Hg] 72 mm[Hg] [facility] 3 09:51:46 Date Recorded Body height Body mass index (BMI) Percentile per age and sex Body mass index (BMI) Body weight Oxygen saturation Oxygen saturation in Arterial blood by Pulse oximetry Heart rate Body temperature Systolic blood pressure Diastolic blood pressure Provider Name and Address Organization Details Last Updated DateTime 3 175.26 cm 99 % 58.8 kg/m2 709526. 16 g 98 % 98 % 74 /min 97.9 [degF] 124 mm[Hg] 68 mm[Hg] [facility] 3 13:57:45 Social History Question Answer Notes LastModified by [employer] Details LastModified Time Tobacco Smoking Status Current Every Day Smoker Sugar [facility] 04/18/2023 15:43:17 Do You Have An Advance Directive? No Information not available 04/18/2023 How Much Tobacco Do You Smoke? 1 PPD Information not available 04/18/2023 Sex: Unknown Functional Status Question Answer Note LastModified by [employer] Details LastModified Time Do you use any [...] History Nothing Reported. Medical History Condition Response Anxiety Disorder Y Muscle, Joint, or Bone Problems Y Obesity Y Vision or Eye Problems Y Arthritis Y Ear or Hearing Problems Y Eczema Y Thyroid Problems Y Depression Y GI Problems Y Hypothyroidism Y Asthma Y Substance Use Y ADD/ADHD Y Skin Problems Y Eating Disorder Y Difficulty Swallowing Y Constipation Y High Cholesterol Y Headaches Y Mental Illness Y Past Encounters Encounter ID Performer Location Encounter Start Date Encounter Closed Date Diagnosis/Indication Diagnosis SNOMED-CT Code Diagnosis ICD10 Code Diagnosis Note [id number] Swapna Jaimes DO Main Office [address] [place] [address] [address] [place] [address] 04/18/2023 15:37:43 04/18/2023 16:05:16 Major depressive disorder 163637957 F32.9 Borderline personality disorder 38798851 F60.3 Attention deficit hyperactivity disorder, predominantly inattentive type 84453265 F90.0 Coronary arteriosclerosis 76933792 I25.10 Unsheltere d homelessness 7490190881 91377 Z59.02 [id number] Swapna Jaimes DO Main Office [address] [place] [address] [address] [place] [address] 05/03/2023 09:41:59 05/03/2023 10:04:12 Attention deficit hyperactivity disorder, predominantly inattentive type 35281239 F90.0 Borderline personality disorder 39858612 F60.3 Unsheltere d homelessness 8979159667 88601 Z59.02 [id number] Swapna Jaimes DO Main Office [address] [place] [address] [address] [place] [address] 07/05/2023 13:49:56 07/05/2023 14:23:55 Attention deficit hyperactivity disorder, predominantly inattentive type 79421075 F90.0 Borderline personality disorder 43891379 F60.3 Coronary arteriosclerosis 40113279 I25.10 Harmful pa ttern of use of opioid 0650711 F11.10 F11.19 Impaired f asting glycemia 750501744 R73.01 Unsheltere d homelessness 3504927847 62539 Z59.02 Health Concerns Section Related Observation LastModified by Organization Detai ls LastModified Time None Recorded Concern Status LastModified by Organization Details LastModified Time None Recorded Advance Directives Directive N: Payers Encounter Date Sequence Insurance Name Policy Number Policy Pate Covered Member ID Pate Member ID Guarantor Name 04/18/2023 1 [place] Kamran Lechuga Anupam [id number] Kamran Anupam 05/03/2023 1 [place] Kamran Lechuga Anupam [id number] Kamran Anupam 07/05/2023 1 [place] Kamran Lechuga Anupam [id number] Kamran Bo Notes Date Note Type Note Provider Name and Address Organization Details Recorded Time 04/18/2023 text/html New patient, established with [employer] [facility]. Currently homeless. Originally from [place], here related to history of incarceration, behavioral [...] at this time. Does report history of CT at the age of 19. Unclear what interventions were. No cardiac symptoms at this time. Was seen in ED yesterday for cellulitis. Swapna Jaimes DO [address] [facility] [address], [place], [address], [facility] 04/19/2023 08:25:09 05/03/2023 text/html [...] with mental health and housing for which [employer] [facility] is helping at this time. No substance use Swapna Jaimes DO [address] [facility] [address], [place], [address], [place] [facility] 05/03/2023 12:32:19 07/05/2023 [...] Knows how to reach out to crisis. Swapnarandolph Jaimes, DO [address] [place] [address], [place], [address], [facility] - [facility] 07/09/2023 13:23:57
--- OUTSIDE RECORDS SUMMARY | 2025-04-15 21:25 | XMS_ITS | Referral Summary ---
Author Organization [facility] Address [address] [place] [address] Care Team Providers Care Sort Line Name Role Phone Ed, [facility]-Attn: Primary Care Provider Unavailable Encounters Date Type Department Care Team Description 01/27/2025 Telephone [facility] [address] [place] [address] Certification Officer: Roxy Gonzalez MA from Last 3 Months [...] Not on file Procedures * Due to [place] state law, this organization might not be sharing negative HIV tests. Procedure Name Priority Date/Time Associated Diagnosis Comments HEPATITIS PANEL, ACUTE Routine 08/17/2018 2:07 PM EDT STD exposure CHLAMYDIA/NEISSERI A GONORRHEA RNA Routine 08/17/2018 2:00 PM EDT Encounter for screening for infections with predominantly sexual mode of transmission from Last 3 Months or Most Recently Relevant to Health Maintenance Results * Due to [place] state law, this organization might not be sharing negative HIV tests. * Hepatitis Panel, Acute (08/17/2018 2:07 PM EDT) Hepatitis B Surface Antigen Interpretation Non-Reactive Non-Reactive 8 1:27 PM EDT [facility] Hepatitis A IgM Antibody Interpretation Nonreactive Nonreactive 8 1:27 PM EDT [facility] Hepatitis B Core IgM Antibody Interpretation Nonreactive Nonreactive 8 1:27 PM EDT [facility] Comment: Dietary supplements containing biotin [...] Interpretation Nonreactive Nonreactive 8 1:27 PM EDT [facility] Blood specimen (specimen) Structure of peripheral vein / Unknown Venipuncture / Unknown 08/17/2018 2:07 PM EDT 08/17/2018 2:08 PM EDT us Rubens Terry MD LAB BLOOD ORDERABLES Final Re sult [facility] [address] [place] [id number], * Chlamydia/Neisseria gonorrhoeae RNA (08/17/2018 2:00 PM EDT) Chlamydia trachomatis RNA, TMA NOT DETECTED NOT DETECTED 08/18/2018 2:45 PM EDT [facility] Neisseria Gonorrhoeae RNA, TMA NOT DETECTED NOT DETECTED 08/18/2018 2:45 PM EDT [facility] Comment: This test was performed using the [employer] COMBO2 Assay ([employer] The analytical performance characteristics of this assay, when used to test SurePath specimens have been determined by [employer]. ?? Urine specimen (specimen) Voided urine specimen / Unknown 08/17/2018 2:00 PM EDT 08/17/2018 6:14 PM EDT N[facility]ative [facility] 08/18/2018 2:45 PM EDT [facility] Received Date: us Rubens Terry MD LAB URINE ORDERABLES Final Re sult [facility] [address] [facility] [address] [facility], [place] [address], [place] [phone] [facility] [address] [place] [address], from Last 3 Months or Most Recently Relevant to Health Maintenance [facility] [place] Advance Directives * Full Code (Latest Code Status on File) Date Activated Date Inactivated Comments 08/14/2021 8:05 PM 08/15/2021 9:52 PM * Full Code Date Activated Date Inactivated Comments 09/12/2017 10:07 AM 09/12/2017 3:00 PM Care Teams Sort Line Relationship Specialty Start Date End Date Ed, [facility]-Attn: PCP - General 12/25/24
--- OUTSIDE RECORDS SUMMARY | 2025-04-15 21:25 | XMS_ITS | Clinical Summary ---
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
--- OUTSIDE RECORDS SUMMARY | 2025-04-15 21:25 | XMS_ITS | Data Portability ---
Author Organization [facility] Address [address] [place] [address] Care Team Providers Care Flue Lining Dipper Name Role Phone ALCON BLAKELY Primary Care Provider ALCON BLAKELY Referring Provider Assessment No assessment recorded. Plan of Treatment Reminders Order Date Submit Date Provider Last Modified By Organization Details Last Modified Time Details Appointments None recorded. Lab HbA1c (hemoglobin A1c), blood [address] (Outpatient Registration) , [address] [place], [address], 5 07:53:49 lipid panel, serum [address] (Outpatient Registration) , [address] [place], [address], 5 07:53:49 CMP, serum or plasma [address] (Outpatient Registration) , [address] [place], [address], 5 14:43:02 25-hydroxyv itamin D2 + 25-hydroxyv itamin D3, QN, serum or plasma [address] (Outpatient Registration) , [address] [place], [address], 5 07:53:49 hepatitis C virus Ab, serum [address] (Outpatient Registration) , [address] [place], [address], 5 07:53:49 RPR (rapid plasma reagin), serum [address] (Outpatient Registration) , [address] [place], [address], 5 07:53:50 HBsAg (hepatitis B surface Ag), quantitativ e, serum [address] (Outpatient Registration) , [address] [place], [address], 5 07:53:50 chlamydia trachomatis + neisseria gonorrhoeae rRNA, QL, ROMEL+probe, urine [address] (Outpatient Registration) , [address] [place], [address], 5 07:53:50 HIV 1+2 AB + HIV 1 p24 Ag, qualitative immunoassay , serum [address] (Outpatient Registration) , [address] [place], [address], 5 07:53:50 TSH + free T4, serum [address] (Outpatient Registration) , [address] [place], [address], 5 07:53:49 CBC w/ auto diff 2022 023 [facility] (Outpatient Registration) , [address] [place], [address], 3 13:00:31 CMP, serum or plasma 2022 023 [facility] (Outpatient Registration) , [address] [place], [address], 3 13:31:03 lipase, serum or plasma 2022 023 [facility] (Outpatient Registration) , [address] [facility], [place], [address], 3 13:31:05 urinalysis, dipstick 2022 023 [email or web address] [facility], [address] [facility], [facility] [address]3, [place], [address], 3 13:32:08 Referral nutritionis t/dietitian referral [address] (Nutrition Services), [address] [place], [address], 5 11:18:57 bariatric surgery referral [email or web address] [place] [address] [facility], [address] [place] [address], [place], [address], 5 14:22:47 physical therapist referral - 23 yr old M, morbid obesity with left lumbar pain with radiculopat hy. no hx of injury or trauma 2023 024 [facility], [address] [facility], [place], [address], 5 08:34:33 medical weight loss program referral 2023 024 [email or web address] Gissell Montano MD, [address] [place], [address], 5 16:52:55 transgender health referral - 23 yr old transgender female request for expert evaluation and treatment. Please schedule and advise patient. Thank you! [address] [facility], [address] [place], [address], 5 15:58:33 medical nutrition therapy referral 2022 023 [email or web address] Lola Hammond, [address] [place], [address], 3 07:15:03 Procedures None recorded. Surgeries None recorded. Imaging XR, ankle, 3 or more view 2022 023 [email or web address] [facility]), [address] [place], [address], 3 15:34:28 Medication Orders gabapentin 800 mg tablet 2023 024 [email or web address] 2 [facility] #[id number], [address] [place], [address], 4 08:06:08 Abilify 5 mg tablet 2023 024 [email or web address] 2 [facility] #[id number], [address] [place], [address], 4 08:06:08 dicyclomine 10 mg capsule 2022 023 [facility], [address] [place], [place], [id number], 3 11:04:02 omeprazole 20 mg capsule,del ayed release 2022 023 [email or web address] 30 [facility] #125[facility], [address] [place], [place], [id number], 4 07:39:39 Patient TargetsNo targets recorded. Patient Instructions Encounter Date Encounter Id Patient Instructions Last Modified By Organization Details Last Modified Time 11/01/2024 [id number] I spent a total of 45 minutes on the date of encounter, which included: Preparing to see the patient (e.g., review of test results), Obtaining and/or reviewing separately obtained history Performing a medically appropriate exam and/or evaluation Ordering medications, tests, procedures Documenting clinical information in the health record [email or web address] Not available 11/03/2024 21:09:50 Reason for Referral [...] 30+ - obesity Referring Physician: Coleen Sabillon [facility], Encounter Date: 12/24/2024 Service Department Manager/dietitian Refer ral for Insulin resistance Referring Physician: Coleen Sabillon [facility], Encounter Date: 12/24/2024 Results Created Date Observation Date Name Description Value Unit Range Abnormal Flag Note LastModifiedBy Organization Detail LastModifiedTime 12/20/1912/20/2022 UA AND RFLX MICRO SCOPI C color urine YELLOW yellow Not Available [facility] Laboratory Department [address] [place], [address] 12/20/2022 10:59:36 12/20/1912/20/2022 UA AND RFLX MICRO SCOPI C appearance urine CLEAR clear Not Available [facility] Laboratory Department [address] [place], [address] 12/20/2022 10:59:36 12/20/1912/20/2022 UA AND RFLX MICRO SCOPI C specific gravity urine >=1.03 0 1.001- 1.035 abnormal Not Available [facility] Laboratory Department [address] [place], [address] 12/20/2022 10:59:36 12/20/19 23 12/20/2022 UA AND RFLX MICRO SCOPI C glucose urine UA NEGATI VE negati ve Not Available [facility] Laboratory Department [address] [place], [address] 12/20/2022 10:59:36 12/20/19 23 12/20/2022 UA AND RFLX MICRO SCOPI C bilirubin urine NEGATI VE negati ve Not Available [facility] Laboratory Department [address] [place], [address] 12/20/2022 10:59:36 12/20/19 23 12/20/2022 UA AND RFLX MICRO SCOPI C ketones urine NEGATI VE negati ve Not Available [facility] Laboratory Department [address] [place], [address] 12/20/2022 10:59:36 12/20/19 23 12/20/2022 UA AND RFLX MICRO SCOPI C urine hemoglobin NEGATI VE negati ve Not Available [facility] Laboratory Department [address] [place] [address], [address] 12/20/2022 10:59:36 12/20/19 23 12/20/2022 UA AND RFLX MICRO SCOPI C pH urine 5.0 5.0-8. 0 Not Available [facility] Laboratory Department [address] [place] [address], [address] 12/20/2022 10:59:36 12/20/19 23 12/20/2022 UA AND RFLX MICRO SCOPI C protein urine NEGATI VE mg/dL negati ve Not Available [facility] Laboratory Department [address] [place] [address], [address] 12/20/2022 10:59:36 12/20/19 23 12/20/2022 UA AND RFLX MICRO SCOPI C urobilinogen urine 0.2 mg/dL 0.2-1. 0 Not Available [facility] Laboratory Department [address] [place] [address], [address] 12/20/2022 10:59:36 12/20/1912/20/2022 UA AND RFLX MICRO SCOPI C nitrite urine NEGATI VE negati ve Not Available [facility] Laboratory Department [address] [place], [address] 12/20/2022 10:59:36 12/20/19 23 12/20/2022 UA AND RFLX MICRO SCOPI C leukocyte esterase urine NEGATI VE negati ve Not Available [facility] Laboratory Department [address] [place], [address] 12/20/2022 10:59:36 12/20/1912/20/2022 B TYPE NATRI URETI C PEPTI DE PRO B type natriuretic peptide pro 10.4 pg/mL 5-125 normal Not Available [facility] Laboratory Department [address] [place], [address] 12/20/2022 11:22:30 12/20/1912/20/2022 PSA,T OTAL (FREE >4AND <10) PSA,total (free>4and<1 0) 0.44 NG/mL 0.0-4. 0 normal Not Available [facility] Laboratory Department [address] [place] [address], [address] 12/20/2022 16:22:32 12/20/1912/20/2022 URINE CULTU RE results [...] ----- -- PATIE NT: Richy Bo ACCT: [id number] LOC: ОЛЕГ BARRIOS U: [id number] AGE/S X: 22/M ROOM: RE12/[address]: Venus fatima : 11/26 BED: DIS: STATU S: DEP CLI TLOC: ----- ----- ----- ----- ----- ----- ----- ----- ----- ----- ----- ----- ----- ----- ----- ----- ----- ----- -- SPEC #: [id number] 7R NORBERTO: 12/20 032 STATU S: COMP REQ #: [id number] RECD: 12/[address]: Venus [...] -- END OF REPOR T Not Available [facility] Laboratory Department [address] [facility], [place], [address] 12/21/2022 07:38:45 01/10/20 23 01/10/2023 urina lysis , dipst ick Urobilinogen Normal Not Available [facility] [address] [place] [address], [place], [address], 01/10/2023 12:31:41 01/10/20 23 01/10/2023 urina lysis , dipst ick Bilirubin negati ve Not Available [facility] [address] [place] [address], [place], [address], 01/10/2023 12:31:41 01/10/20 23 01/10/2023 urina lysis , dipst ick Protein negati ve Not Available [facility] [address] [place] [address], [place], [address], 01/10/2023 12:31:41 01/10/20 23 01/10/2023 urina lysis , dipst ick Nitrite negati ve Not Available [facility] [address] [place] [address], [place], [address], 01/10/2023 12:31:41 01/10/20 23 01/10/2023 urina lysis , dipst ick Ketones negati ve Not Available [facility] [address] [place] [address], [place], [address], 01/10/2023 12:31:41 01/10/20 23 01/10/2023 urina lysis , dipst ick Glucose negati ve Not Available [facility] [address], [place], [address], 01/10/2023 12:31:41 01/10/20 23 01/10/2023 urina lysis , dipst ick PH 6.5 Not Available [facility] [address] [place] [address], [place], [address], 01/10/2023 12:31:41 01/10/20 23 01/10/2023 urina lysis , dipst ick Specific [place] 1.020 Not Available [facility] [address], [place], [address], 01/10/2023 12:31:41 01/10/20 23 01/10/2023 urina lysis , dipst ick Leukocytes negati ve Not Available [facility] [address] [address], [place], [address], 01/10/2023 12:31:41 01/10/20 23 01/10/2023 urina lysis , dipst ick Blood Negati ve Not Available [facility] [address] [address], [place], [address], 01/10/2023 12:31:41 01/10/20 23 01/10/2023 urina lysis , dipst ick Appearance: clear Not Available [facility] [address] [address], [place], [address], 01/10/2023 12:31:41 01/10/20 23 01/10/2023 urina lysis , dipst ick Color Pale Yellow Not Available [facility] [address] [address], [place], [address], 01/10/2023 12:31:41 01/10/20 23 01/10/2023 urina lysis , dipst ick Lot #: [id number] Not Available [facility] [address] [address], [place], [address], 01/10/2023 12:31:41 01/10/20 23 01/10/2023 urina lysis , dipst ick Exp Date: 4 Not Available [facility] [address] [address], [place], [address], 01/10/2023 12:31:41 03/16/20 23 02/09/2023 COMPL ETE BLOOD COUNT AUTO DIFF white blood count 11.28 K/uL 3.5-11 .0 high Not Available [facility] Laboratory Department [address] [place] [address], [address] 02/09/2023 13:00:31 02/10/20 23 02/09/2023 COMPL ETE BLOOD COUNT AUTO DIFF red blood count 5.39 M/uL 3.90-5 .50 normal Not Available [facility] Laboratory Department [address] [place] [address], [address] 02/09/2023 13:00:31 02/10/20 23 02/09/2023 COMPL ETE BLOOD COUNT AUTO DIFF hemoglobin 15.7 g/dL 14.0-1 8.0 normal Not Available [facility] Laboratory Department [address] [place] [address], [address] 02/09/2023 13:00:31 02/10/20 23 02/09/2023 COMPL ETE BLOOD COUNT AUTO DIFF hematocrit 47.3 % 42.0-5 4.0 normal Not Available [facility] Laboratory Department [address] [place] [address], [address] 02/09/2023 13:00:31 02/10/20 23 02/09/2023 COMPL ETE BLOOD COUNT AUTO DIFF mean corpuscular volume 87.8 fL 80.0-1 00.0 normal Not Available [facility] Laboratory Department [address] [place] [address], [address] 02/09/2023 13:00:31 02/10/20 23 02/09/2023 COMPL ETE BLOOD COUNT AUTO DIFF mean corpuscular hemoglobin 29.1 pg 25.4-3 4.6 normal Not Available [facility] Laboratory Department [address] [place] [address], [address] 02/09/2023 13:00:31 02/10/20 23 02/09/2023 COMPL ETE BLOOD COUNT AUTO DIFF mean corpuscular HGB conc 33.2 g/dL 31.0-3 7.0 normal Not Available [facility] Laboratory Department [address] [place] [address], [address] 02/09/2023 13:00:31 02/10/20 23 02/09/2023 COMPL ETE BLOOD COUNT AUTO DIFF red cell distribution width 13.6 % 11.5-1 4.5 normal Not Available [facility] Laboratory Department [address] [place] [address], [address] 02/09/2023 13:00:31 02/10/20 23 02/09/2023 COMPL ETE BLOOD COUNT AUTO DIFF platelet count 337 K/uL 150-40 0 normal Not Available [facility] Laboratory Department [address] [place] [address], [address] 02/09/2023 13:00:31 02/10/20 23 02/09/2023 COMPL ETE BLOOD COUNT AUTO DIFF neutrophils percent auto 58.5 % 35.0-6 6.0 normal Not Available [facility] Laboratory Department [address] [place] [address], [address] 02/09/2023 13:00:31 02/10/20 23 02/09/2023 COMPL ETE BLOOD COUNT AUTO DIFF lymphocytes percent auto 28.5 % 25.0-4 5.0 normal Not Available [facility] Laboratory Department [address] [place] [address], [address] 02/09/2023 13:00:31 02/10/20 23 02/09/2023 COMPL ETE BLOOD COUNT AUTO DIFF monocytes percent auto 6.6 % 0.0-13 .0 normal Not Available [facility] Laboratory Department [address] [place] [address], [address] 02/09/2023 13:00:31 02/10/20 23 02/09/2023 COMPL ETE BLOOD COUNT AUTO DIFF eosinophils percent auto 6.1 % 0.0-8. 0 normal Not Available [facility] Laboratory Department [address] [place] [address], [address] 02/09/2023 13:00:31 02/10/20 23 02/09/2023 COMPL ETE BLOOD COUNT AUTO DIFF basophils percent auto 0.3 % 0.0-1. 0 normal Not Available [facility] Laboratory Department [address] [place] [address], [address] 02/09/2023 13:00:31 02/10/20 23 02/09/2023 COMPL ETE [...] oprol ifera tive disor ders. Not Available [facility] Laboratory Department [address] [place], [address] 02/09/2023 13:00:31 02/10/20 23 02/09/2023 COMPL ETE BLOOD COUNT AUTO DIFF lymphocytes absolute auto 3.22 K/uL 0.8-4. 8 normal Not Available [facility] Laboratory Department [address] [place] [address], [address] 02/09/2023 13:00:31 02/10/20 23 02/09/2023 COMPL ETE BLOOD COUNT AUTO DIFF monocytes absolute auto 0.75 K/uL 0.4-1. 3 normal Not Available [facility] Laboratory Department [address] [place] [address], [address] 02/09/2023 13:00:31 02/10/20 23 02/09/2023 COMPL ETE BLOOD COUNT AUTO DIFF eosinophils absolute auto 0.69 K/uL 0.0-0. 8 normal Not Available [facility] Laboratory Department [address] [place] [address], [address] 02/09/2023 13:00:31 02/10/20 23 02/09/2023 COMPL ETE BLOOD COUNT AUTO DIFF basophils absolute auto 0.03 K/uL 0.0-0. 6 normal Not Available [facility] Laboratory Department [address] [place] [address], [address] 02/09/2023 13:00:31 02/10/20 23 02/09/2023 B TYPE NATRI URETI C PEPTI DE PRO B type natriuretic peptide pro 5.4 pg/mL 5-125 normal Not Available [facility] Laboratory Department [address] [place] [address], [address] 02/09/2023 13:19:20 02/10/20 23 02/09/2023 COMPR EHENS SADE MET. PANEL sodium 139 mmol/ L 136-14 5 normal Not Available [facility] Laboratory Department [address] [place] [address], [address] 02/09/2023 13:31:03 02/10/20 23 02/09/2023 COMPR EHENS SADE MET. PANEL potassium 3.9 mmol/ L 3.5-5. 1 normal Not Available [facility] Laboratory Department [address] [place] [address], [address] 02/09/2023 13:31:03 02/10/20 23 02/09/2023 COMPR EHENS SADE MET. PANEL chloride 103 mmol/ L 98-107 normal Not Available [facility] Laboratory Department [address] [place], [address] 02/09/2023 13:31:03 02/10/20 23 02/09/2023 COMPR EHENS SADE MET. PANEL carbon dioxide 24.9 mmol/ L 22-29 normal Not Available [facility] Laboratory Department [address] [place], [address] 02/09/2023 13:31:03 02/10/20 23 02/09/2023 COMPR EHENS SADE MET. PANEL anion gap 15 mmol/ L 10-20 normal Not Available [facility] Laboratory Department [address] [place], [address] 02/09/2023 13:31:03 02/10/20 23 02/09/2023 COMPR EHENS SADE MET. PANEL blood urea nitrogen 10 mg/dL 6-20 normal Not Available [facility] Laboratory Department [address] [place], [address] 02/09/2023 13:31:03 02/10/20 23 02/09/2023 COMPR EHENS SADE MET. PANEL creatinine 0.65 mg/dL 0.70-1 .2 low Not Available [facility] Laboratory Department [address] [place], [address] 02/09/2023 13:31:03 02/10/20 23 02/09/2023 COMPR EHENS [...] under the age of 18 Not Available [facility] Laboratory Department [address] [place], [address] 02/09/2023 13:31:03 02/10/20 23 02/09/2023 COMPR EHENS SADE MET. PANEL glucose 123 mg/dL 70-106 high Not Available [facility] Laboratory Department [address] [place], [address] 02/09/2023 13:31:03 02/10/20 23 02/09/2023 COMPR EHENS SADE MET. PANEL calcium 8.8 mg/dL 8.4-10 .3 normal Not Available [facility] Laboratory Department [address] [place] [address], [address] 02/09/2023 13:31:03 02/10/20 23 02/09/2023 COMPR EHENS SADE MET. PANEL bilirubin total 0.3 mg/dL 0.2-1. 2 normal Not Available [facility] Laboratory Department [address] [place] [address], [address] 02/09/2023 13:31:03 02/10/20 23 02/09/2023 COMPR EHENS SADE MET. PANEL aspartate amino transferase 23 U/L 5-40 normal Not Available [facility] Laboratory Department [address] [place] [address], [address] 02/09/2023 13:31:03 02/10/20 23 02/09/2023 COMPR EHENS SADE MET. PANEL alanine aminotransfe rase 32 U/L 5-41 normal Not Available [facility] Laboratory Department [address] [place], [address] 02/09/2023 13:31:03 02/10/20 23 02/09/2023 COMPR EHENS SADE MET. PANEL total protein 7.2 g/dL 6.4-8. 3 normal Not Available [facility] Laboratory Department [address] [place] [address], [address] 02/09/2023 13:31:03 02/10/20 23 02/09/2023 COMPR EHENS SADE MET. PANEL albumin level 3.9 g/dL 3.5-5. 2 normal Not Available [facility] Laboratory Department [address] [place] [address], [address] 02/09/2023 13:31:03 02/10/20 23 02/09/2023 COMPR EHENS SADE MET. PANEL globulin 3.3 gm/dL 2.0-3. 5 normal Not Available [facility] Laboratory Department [address] [place] [address], [address] 02/09/2023 13:31:03 02/10/20 23 02/09/2023 COMPR EHENS SADE MET. PANEL albumin globulin ratio 1.2 % 1.1-2. 5 normal Not Available [facility] Laboratory Department [address] [place], [address] 02/09/2023 13:31:03 02/10/20 23 02/09/2023 COMPR EHENS SADE MET. PANEL alkaline phosphatase 57 U/L 40-129 normal Not Available [facility] Laboratory Department [address] [place], [address] 02/09/2023 13:31:03 02/10/20 23 02/09/2023 LIPAS E lipase 12 U/L 13-60 low Not Available [facility] Laboratory Department [address] [place] [address], [address] 02/09/2023 13:31:05 02/10/20 23 02/09/2023 PSA,T OTAL (FREE >4AND <10) PSA,total (free>4and<1 0) 0.24 NG/mL 0.0-4. 0 normal Not Available [facility] Laboratory Department [address] [place], [address] 02/09/2023 20:26:46 06/25/20 23 06/25/2023 UA + MICRO (DO NOT ORDER ) color urine Yellow yellow Not Available [facility] Laboratory Department [address] [place] [address], [address] 06/25/2023 18:53:07 06/25/20 23 06/25/2023 UA + MICRO (DO NOT ORDER ) appearance urine Clear clear Not Available [facility] Laboratory Department [address] [place], [address] 06/25/2023 18:53:07 06/25/20 23 06/25/2023 UA + MICRO (DO NOT ORDER ) specific gravity urine 1.025 1.001- 1.035 Not Available [facility] Laboratory Department [address] [place], [address] 06/25/2023 18:53:07 06/25/20 23 06/25/2023 UA + MICRO (DO NOT ORDER ) glucose urine UA Negati ve negati ve Not Available [facility] Laboratory Department [address] [place] [address], [address] 06/25/2023 18:53:07 06/25/20 23 06/25/2023 UA + MICRO (DO NOT ORDER ) bilirubin urine Negati ve negati ve Not Available [facility] Laboratory Department [address] [place], [address] 06/25/2023 18:53:07 06/25/20 23 06/25/2023 UA + MICRO (DO NOT ORDER ) ketones urine Negati ve negati ve Not Available [facility] Laboratory Department [address] [place] [address], [address] 06/25/2023 18:53:07 06/25/20 23 06/25/2023 UA + MICRO (DO NOT ORDER ) urine hemoglobin Trace- intact negati ve abnormal Not Available [facility] Laboratory Department [address] [place] [address], [address] 06/25/2023 18:53:07 06/25/2006/25/2023 UA + MICRO (DO NOT ORDER ) pH urine 6.0 5.0-8. 0 Not Available [facility] Laboratory Department [address] [place] [address], [address] 06/25/2023 18:53:07 06/25/20 23 06/25/2023 UA + MICRO (DO NOT ORDER ) protein urine Negati ve mg/dL negati ve Not Available [facility] Laboratory Department [address] [place] [address], [address] 06/25/2023 18:53:07 06/25/20 23 06/25/2023 UA + MICRO (DO NOT ORDER ) urobilinogen urine 0.2 mg/dL 0.2-1. 0 Not Available [facility] Laboratory Department [address] [place] [address], [address] 06/25/2023 18:53:07 06/25/20 23 06/25/2023 UA + MICRO (DO NOT ORDER ) nitrite urine Negati ve negati ve Not Available [facility] Laboratory Department [address] [place] [address], [address] 06/25/2023 18:53:07 06/25/2006/25/2023 UA + MICRO (DO NOT ORDER ) leukocyte esterase urine Negati ve negati ve Not Available [facility] Laboratory Department [address] [place] [address], [address] 06/25/2023 18:53:07 06/25/20 23 06/25/2023 UA + MICRO (DO NOT ORDER ) RBC urine 0-2 Not Available [facility] Laboratory Department [address] [place], [address] 06/25/2023 18:53:06/25/2006/25/2023 URINE CULTU RE results ----- [...] ----- -- PATIE NT: Richy Bo ACCT: [id number] LOC: KATI Mukherjee U: [id number] AGE/S X: 22/M ROOM: RE06/[address]: David Cortes : [birth year]26 BED: DIS: STATU S: LEANDER MARTINEZ TLOC: ----- ----- ----- ----- ----- ----- ----- ----- ----- ----- ----- ----- ----- ----- ----- ----- ----- ----- -- SPEC #: [id number] 9R NORBERTO: 06/25- 827 STATU S: COMP REQ #: [id number] RECD: 06/25- [address]: Stephen Albrecht [facility] E: José Miguel martin ENTR: 06/25-1 829 [...] -- END OF REPOR T Not Available [facility] Laboratory Department [address] [place] [address], [address] 06/27/2023 06:50:34 06/25/2006/29/2023 CHLAM YDIA/ GC (NAAT ) URINE chlamydia (naat) urine Negati ve negati ve Not Available [facility] Department [address] [place] [address], [id number] 06/29/2023 10:18:36 06/25/2006/29/2023 CHLAM YDIA/ GC (NAAT ) URINE N. gonorrhoeae (naat) urine Negati ve negati ve Not Available [facility] Department [address] [place] [address], [id number] 06/29/2023 10:18:36 02/29/20 24 02/29/2024 COMPL ETE BLOOD COUNT AUTO DIFF white blood count 11.88 K/uL 3.5-11 .0 high Not Available [facility] Department [address] [place] [address], [id number] 02/29/2024 21:28:03 02/29/20 24 02/29/2024 COMPL ETE BLOOD COUNT AUTO DIFF red blood count 5.03 M/uL 3.90-5 .50 normal Not Available [facility] Department [address] [place] [address], [id number] 02/29/2024 21:28:03 02/29/20 24 02/29/2024 COMPL ETE BLOOD COUNT AUTO DIFF hemoglobin 15.0 g/dL 14.0-1 8.0 normal Not Available [facility] Department [address] [place] [address], [id number] 02/29/2024 21:28:03 02/29/20 24 02/29/2024 COMPL ETE BLOOD COUNT AUTO DIFF hematocrit 45.4 % 42.0-5 4.0 normal Not Available [facility] Department [address] [place] [address], [id number] 02/29/2024 21:28:03 02/29/20 24 02/29/2024 COMPL ETE BLOOD COUNT AUTO DIFF mean corpuscular volume 90.3 fL 80.0-1 00.0 normal Not Available [facility] Department [address] [place] [address], [id number] 02/29/2024 21:28:03 02/29/20 24 02/29/2024 COMPL ETE BLOOD COUNT AUTO DIFF mean corpuscular hemoglobin 29.8 pg 25.4-3 4.6 normal Not Available [facility] Department [address] [place] [address], [id number] 02/29/2024 21:28:03 02/29/20 24 02/29/2024 COMPL ETE BLOOD COUNT AUTO DIFF mean corpuscular HGB conc 33.0 g/dL 31.0-3 7.0 normal Not Available [facility] Department [address] [place] [address], [id number] 02/29/2024 21:28:03 02/29/20 24 02/29/2024 COMPL ETE BLOOD COUNT AUTO DIFF red cell distribution width 12.6 % 11.5-1 4.5 normal Not Available [facility] Department [address] [place], [address] 02/29/2024 21:28:03 02/29/20 24 02/29/2024 COMPL ETE BLOOD COUNT AUTO DIFF platelet count 349 K/uL 150-40 0 normal Not Available [facility] Department [address] [place] [address], [id number] 02/29/2024 21:28:03 02/29/20 24 02/29/2024 COMPL ETE BLOOD COUNT AUTO DIFF neutrophils percent auto 63.3 % 35.0-6 6.0 normal Not Available [facility] Department [address] [place] [address], [id number] 02/29/2024 21:28:03 02/29/20 24 02/29/2024 COMPL ETE BLOOD COUNT AUTO DIFF lymphocytes percent auto 29.2 % 25.0-4 5.0 normal Not Available [facility] Department [address] [place] [address], [id number] 02/29/2024 21:28:03 02/29/20 24 02/29/2024 COMPL ETE BLOOD COUNT AUTO DIFF monocytes percent auto 5.0 % 0.0-13 .0 normal Not Available [facility] Department [address] [place] [address], [id number] 02/29/2024 21:28:03 02/29/20 24 02/29/2024 COMPL ETE BLOOD COUNT AUTO DIFF eosinophils percent auto 2.2 % 0.0-8. 0 normal Not Available [facility] Department [address] [place] [address], [id number] 02/29/2024 21:28:03 02/29/20 24 02/29/2024 COMPL ETE BLOOD COUNT AUTO DIFF basophils percent auto 0.3 % 0.0-1. 0 normal Not Available [facility] Department [address] [place] [address], [id number] 02/29/2024 21:28:03 02/29/20 24 02/29/2024 COMPL ETE BLOOD COUNT AUTO DIFF neutrophils absolute auto 7.53 K/uL 1.5-7. 5 high Not Available [facility] Department [address] [place] [address], [id number] 02/29/2024 21:28:03 02/29/20 24 02/29/2024 COMPL ETE BLOOD COUNT AUTO DIFF lymphocytes absolute auto 3.47 K/uL 0.8-4. 8 normal Not Available [facility] Department [address] [place] [address] [place], [address] 02/29/2024 21:28:03 02/29/20 24 02/29/2024 COMPL ETE BLOOD COUNT AUTO DIFF monocytes absolute auto 0.59 K/uL 0.4-1. 3 normal Not Available [facility] Department [address] [place] [address] [place], [address] 02/29/2024 21:28:03 02/29/20 24 02/29/2024 COMPL ETE BLOOD COUNT AUTO DIFF eosinophils absolute auto 0.26 K/uL 0.0-0. 8 normal Not Available [facility] Department [address] [place] [address] [place], [address] 02/29/2024 21:28:03 02/29/20 24 02/29/2024 COMPL ETE BLOOD COUNT AUTO DIFF basophils absolute auto 0.03 K/uL 0.0-0. 6 normal Not Available [facility] Department [address] [place], [place] [address], [address] 02/29/2024 21:28:03 02/29/20 24 02/29/2024 BASIC METAB OLIC PANEL sodium 137 mmol/ L 136-14 5 normal Not Available [facility] Department [address] [place] [address] [place], [address] 02/29/2024 21:51:06 02/29/20 24 02/29/2024 BASIC METAB OLIC PANEL potassium 3.8 mmol/ L 3.5-5. 1 normal Not Available [facility] Department [address] [place], [place] [address], [place], [address] 02/29/2024 21:51:06 02/29/20 24 02/29/2024 BASIC METAB OLIC PANEL chloride 101 mmol/ L 98-107 normal Not Available [facility] Department [address] [place], [place] [address], [address] 02/29/2024 21:51:06 02/29/20 24 02/29/2024 BASIC METAB OLIC PANEL carbon dioxide 23.9 mmol/ L 22-29 normal Not Available [facility] Department [address] [place] [address] [place], [address] 02/29/2024 21:51:06 02/29/20 24 02/29/2024 BASIC METAB OLIC PANEL anion gap 16 mmol/ L 10-20 normal Not Available [facility] [address] [facility] [place], [address] 02/29/2024 21:51:06 02/29/20 24 02/29/2024 BASIC METAB OLIC PANEL blood urea nitrogen 11 mg/dL 6-20 normal Not Available [facility] Department [address] [facility] [place], [address] 02/29/2024 21:51:06 02/29/20 24 02/29/2024 BASIC METAB OLIC PANEL creatinine 0.78 mg/dL 0.70-1 .2 normal Not Available [facility] Department [address] [place], [address] 02/29/2024 21:51:06 02/29/2002/29/2024 BASIC METAB OLIC PANEL [...] under the age of 18. Not Available [facility] Department [address] [place], [address] 02/29/2024 21:51:06 02/29/20 24 02/29/2024 BASIC METAB OLIC PANEL glucose 118 mg/dL 70-106 high Not Available [facility] [address] [facility] [place], [address] 02/29/2024 21:51:06 02/29/20 24 02/29/2024 BASIC METAB OLIC PANEL calcium 9.1 mg/dL 8.4-10 .3 normal Not Available [facility] [address] [facility] [place], [address] 02/29/2024 21:51:06 02/29/20 24 02/29/2024 SALIC YLATE salicylate < 0.5 mg/dL 15-30 low Not Available [facility] Department [address] [place] [address], [id number] 02/29/2024 21:51:06 02/29/20 24 02/29/2024 [facility] acetaminophe n lab < 15 ug/mL 15-30 low Not Available [facility] Department [address] [place] [address], [id number] 02/29/2024 21:51:07 02/29/20 24 02/29/2024 RACHAEL OL ethanol < 10 mg/dL This resul t is below the linea rity of the instr ument and shoul d be consi dered indis tingu ishab le from zero. REFER ENCE RANGE : NONE DETEC SHERWIN No refer ence range is avail able for deter minat ion of clini chloe intox icati on. Not Available [facility] Department [address] [place] [address], [id number] 02/29/2024 21:51:07 03/01/20 24 03/01/2024 DRUG SCREE N URINE opiate screen urine Negati ve negati ve Not Available [facility] Department [address] [place] [address], [id number] 03/01/2024 09:14:44 03/01/20 24 03/01/2024 DRUG SCREE N URINE barbiturates , urine Negati ve negati ve Not Available [facility] Department [address] [place] [address], [id number] 03/01/2024 09:14:44 03/01/20 24 03/01/2024 DRUG SCREE N URINE phencyclidin e screen urine Negati ve negati ve Not Available [facility] Department [address] [place] [address], [id number] 03/01/2024 09:14:44 03/01/20 24 03/01/2024 DRUG SCREE N URINE amphetamine screen urine Negati ve negati ve Not Available [facility] Department [address] [place] [address], [id number] 03/01/2024 09:14:44 03/01/20 24 03/01/2024 DRUG SCREE N URINE benzodiazepi shira screen urine Negati ve negati ve Not Available [facility] Department [address] [place] [address], [id number] 03/01/2024 09:14:44 03/01/20 24 03/01/2024 DRUG SCREE N URINE cocaine screen urine Negati ve negati ve Not Available [facility] Department [address] [place] [address], [id number] 03/01/2024 09:14:44 03/01/20 24 03/01/2024 DRUG SCREE N URINE cannabinoid screen urine Negati ve negati ve Not Available [facility] Department [address] [place] [address], [id number] 03/01/2024 09:14:44 03/01/20 24 03/01/2024 DRUG SCREE N URINE methadone screen, urine Negati ve negati ve Not Available [facility] Department [address] [place] [address], [id number] 03/01/2024 09:14:44 03/01/20 24 03/01/2024 DRUG SCREE N URINE propoxyphene urine screen Negati ve negati ve Not Available [facility] Department [address] [place] [address], [id number] 03/01/2024 09:14:44 03/01/20 24 03/01/2024 DRUG SCREE N URINE oxycodone urine screen Negati ve negati ve Not Available [facility] Department [address] [place] [address], [id number] 03/01/2024 09:14:44 03/01/20 24 03/01/2024 [address]UG SCREE [...] st fur er testi ng. Not Available [facility] Department [address] [place] [address], [id number] 03/01/2024 09:14:44 09/10/2009/10/2024 COMPL ETE BLOOD COUNT AUTO DIFF white blood count 14.21 K/uL 3.5-11 .0 high Not Available [facility] Department [address] [place] [address], [id number] 09/10/2024 22:46:42 09/10/2009/10/2024 COMPL ETE BLOOD COUNT AUTO DIFF red blood count 5.12 M/uL 3.90-5 .50 normal Not Available [facility] Department [address] [place] [address], 25054 09/10/2024 22:46:42 09/10/2009/10/2024 COMPL ETE BLOOD COUNT AUTO DIFF hemoglobin 15.0 g/dL 14.0-1 8.0 normal Not Available [facility] Department [address] [place] [address], 47942 09/10/2024 22:46:42 09/10/2009/10/2024 COMPL ETE BLOOD COUNT AUTO DIFF hematocrit 44.8 % 42.0-5 4.0 normal Not Available [facility] Department [address] [place] [address], 80758 09/10/2024 22:46:42 09/10/2009/10/2024 COMPL ETE BLOOD COUNT AUTO DIFF mean corpuscular volume 87.5 fL 80.0-1 00.0 normal Not Available [facility] Department [address] [place] [address], [id number] 09/10/2024 22:46:42 09/10/2009/10/2024 COMPL ETE BLOOD COUNT AUTO DIFF mean corpuscular hemoglobin 29.3 pg 25.4-3 4.6 normal Not Available [facility] Department [address] [place] [address], 06124 09/10/2024 22:46:42 09/10/20 24 09/10/2024 COMPL ETE BLOOD COUNT AUTO DIFF mean corpuscular HGB conc 33.5 g/dL 31.0-3 7.0 normal Not Available [facility] Department [address] [place] [address], [id number] 09/10/2024 22:46:42 09/10/20 24 09/10/2024 COMPL ETE BLOOD COUNT AUTO DIFF red cell distribution width 13.6 % 11.5-1 4.5 normal Not Available [facility] Department [address] [place] [address], [id number] 09/10/2024 22:46:42 09/10/20 24 09/10/2024 COMPL ETE BLOOD COUNT AUTO DIFF platelet count 372 K/uL 150-40 0 normal Not Available [facility] Department [address] [place] [address], [id number] 09/10/2024 22:46:42 09/10/20 24 09/10/2024 COMPL ETE BLOOD COUNT AUTO DIFF neutrophils percent auto 68.6 % 35.0-6 6.0 high Not Available [facility] Department [address] [place] [address], [id number] 09/10/2024 22:46:42 09/10/20 24 09/10/2024 COMPL ETE BLOOD COUNT AUTO DIFF lymphocytes percent auto 20.9 % 25.0-4 5.0 low Not Available [facility] Department [address] [place] [address], [id number] 09/10/2024 22:46:42 09/10/20 24 09/10/2024 COMPL ETE BLOOD COUNT AUTO DIFF monocytes percent auto 7.0 % 0.0-13 .0 normal Not Available [facility] Department [address] [place] [address], 10142 09/10/2024 22:46:42 09/10/20 24 09/10/2024 COMPL ETE BLOOD COUNT AUTO DIFF eosinophils percent auto 3.2 % 0.0-8. 0 normal Not Available [facility] Department [address] [place] [address], 07496 09/10/2024 22:46:42 09/10/20 24 09/10/2024 COMPL ETE BLOOD COUNT AUTO DIFF basophils percent auto 0.3 % 0.0-1. 0 normal Not Available [facility] Department [address] [place], [address] 09/10/2024 22:46:42 09/10/20 24 09/10/2024 COMPL ETE BLOOD COUNT AUTO DIFF neutrophils absolute auto 9.75 K/uL 1.5-7. 5 high Not Available [facility] Department [address] [place] [address], 73074 09/10/2024 22:46:42 09/10/20 24 09/10/2024 COMPL ETE BLOOD COUNT AUTO DIFF lymphocytes absolute auto 2.97 K/uL 0.8-4. 8 normal Not Available [facility] Department [address] [place] [address], [id number] 09/10/2024 22:46:42 09/10/20 24 09/10/2024 COMPL ETE BLOOD COUNT AUTO DIFF monocytes absolute auto 0.99 K/uL 0.4-1. 3 normal Not Available [facility] Department [address] [place], [address] 09/10/2024 22:46:42 09/10/20 24 09/10/2024 COMPL ETE BLOOD COUNT AUTO DIFF eosinophils absolute auto 0.46 K/uL 0.0-0. 8 normal Not Available [facility] Department [address] [place] [address], 39137 09/10/2024 22:46:42 09/10/20 24 09/10/2024 COMPL ETE BLOOD COUNT AUTO DIFF basophils absolute auto 0.04 K/uL 0.0-0. 6 normal Not Available [facility] Department [address] [place] [address], [id number] 09/10/2024 22:46:42 09/10/20 24 09/10/2024 UA + MICRO (DO NOT ORDER ) color urine Yellow yellow Not Available [facility] Department [address] [place] [address], 07054 09/10/2024 23:00:25 09/10/20 24 09/10/2024 UA + MICRO (DO NOT ORDER ) appearance urine Clear clear Not Available [facility] Department [address] [place] [address], 76521 09/10/2024 23:00:25 09/10/20 24 09/10/2024 UA + MICRO (DO NOT ORDER ) specific gravity urine >=1.03 0 1.001- 1.035 abnormal Not Available [facility] Department [address] [place] [address], [id number] 09/10/2024 23:00:25 09/10/20 24 09/10/2024 UA + MICRO (DO NOT ORDER ) glucose urine UA Negati ve negati ve Not Available [facility] Department [address] [place] [address], [id number] 09/10/2024 23:00:25 09/10/20 24 09/10/2024 UA + MICRO (DO NOT ORDER ) bilirubin urine Negati ve negati ve Not Available [facility] Department [address] [place] [address], 70706 09/10/2024 23:00:25 09/10/20 24 09/10/2024 UA + MICRO (DO NOT ORDER ) ketones urine Trace negati ve abnormal Not Available [facility] Department [address] [place] [address], [id number] 09/10/2024 23:00:25 09/10/20 24 09/10/2024 UA + MICRO (DO NOT ORDER ) urine hemoglobin 2+ negati ve abnormal Not Available [facility] Department [address] [place] [address], [id number] 09/10/2024 23:00:25 09/10/20 24 09/10/2024 UA + MICRO (DO NOT ORDER ) pH urine 5.5 5.0-8. 0 Not Available [facility] Department [address] [place] [address], [id number] 09/10/2024 23:00:25 09/10/20 24 09/10/2024 UA + MICRO (DO NOT ORDER ) protein urine Negati ve mg/dL negati ve Not Available [facility] Department [address] [place] [address], [id number] 09/10/2024 23:00:25 09/10/20 24 09/10/2024 UA + MICRO (DO NOT ORDER ) urobilinogen urine 0.2 mg/dL 0.2-1. 0 Not Available [facility] Department [address] [place] [address], [id number] 09/10/2024 23:00:25 09/10/20 24 09/10/2024 UA + MICRO (DO NOT ORDER ) nitrite urine Negati ve negati ve Not Available [facility] Department [address] [place] [address], [id number] 09/10/2024 23:00:25 09/10/20 24 09/10/2024 UA + MICRO (DO NOT ORDER ) leukocyte esterase urine Negati ve negati ve Not Available [facility] Department [address] [place] [address], [id number] 09/10/2024 23:00:25 09/10/20 24 09/10/2024 UA + MICRO (DO NOT ORDER ) RBC urine 0-2 0-3/hp f Not Available [facility] Department [address] [place] [address], [id number] 09/10/2024 23:00:25 09/10/20 24 09/10/2024 UA + MICRO (DO NOT ORDER ) WBC urine 0-4 0-2/hp f Not Available [facility] Department [address] [place] [address], [id number] 09/10/2024 23:00:25 09/10/20 24 09/10/2024 UA + MICRO (DO NOT ORDER ) squamous epithelial cell urine Few few/hp f Not Available [facility] Department [address] [place] [address], [id number] 09/10/2024 23:00:25 09/10/20 24 09/10/2024 COMPR EHENS SADE MET. PANEL sodium 140 mmol/ L 136-14 5 normal Not Available [facility] Department [address] [place] [address], 71552 09/10/2024 23:40:42 09/10/20 24 09/10/2024 COMPR EHENS SADE MET. PANEL potassium 4.0 mmol/ L 3.5-5. 1 normal Not Available [facility] Department [address] [place] [address], 16146 09/10/2024 23:40:42 09/10/20 24 09/10/2024 COMPR EHENS SADE MET. PANEL chloride 106 mmol/ L 98-107 normal Not Available [facility] Department [address] [place] [address], 81044 09/10/2024 23:40:42 09/10/20 24 09/10/2024 COMPR EHENS SADE MET. PANEL carbon dioxide 24.2 mmol/ L 22-29 normal Not Available [facility] Department [address] [place], [address] 09/10/2024 23:40:42 09/10/20 24 09/10/2024 COMPR EHENS SADE MET. PANEL anion gap 13 mmol/ L 10-20 normal Not Available [facility] Department [address] [place], [address] 09/10/2024 23:40:42 09/10/20 24 09/10/2024 COMPR EHENS SDAE MET. PANEL blood urea nitrogen 14 mg/dL 6-20 normal Not Available [facility] Department [address] [place], [address] 09/10/2024 23:40:42 09/10/20 24 09/10/2024 COMPR EHENS SADE MET. PANEL creatinine 0.88 mg/dL 0.70-1 .2 normal Not Available [facility] Department [address] [place] [address], 18993 09/10/2024 23:40:42 09/10/20 24 09/10/2024 COMPR EHENS [...] under the age of 18. Not Available [facility] Department [address] [place] [address], 76917 09/10/2024 23:40:42 09/10/20 24 09/10/2024 COMPR EHENS SADE MET. PANEL glucose 116 mg/dL 70-106 high Not Available [facility] Department [address] [place], [address] 09/10/2024 23:40:42 09/10/20 24 09/10/2024 COMPR EHENS SADE MET. PANEL calcium 9.1 mg/dL 8.4-10 .3 normal Not Available [facility] Department [address] [place], [address] 09/10/2024 23:40:42 09/10/20 24 09/10/2024 COMPR EHENS SADE MET. PANEL bilirubin total < 0.2 mg/dL 0.2-1. 2 low Not Available [facility] Department [address] [place], [address] 09/10/2024 23:40:42 09/10/20 24 09/10/2024 COMPR EHENS SADE MET. PANEL aspartate amino transferase 25 U/L 5-40 normal Not Available [facility] Department [address] [place], [address] 09/10/2024 23:40:42 09/10/20 24 09/10/2024 COMPR EHENS SADE MET. PANEL alanine aminotransfe rase 47 U/L 5-41 high Not Available [facility] Department [address] [place], [address] 09/10/2024 23:40:42 09/10/20 24 09/10/2024 COMPR EHENS SADE MET. PANEL total protein 7.4 g/dL 6.4-8. 3 normal Not Available [facility] Department [address] [place], [address] 09/10/2024 23:40:42 09/10/20 24 09/10/2024 COMPR EHENS SADE MET. PANEL albumin level 3.9 g/dL 3.5-5. 2 normal Not Available [facility] Department [address] [place], [address] 09/10/2024 23:40:42 09/10/20 24 09/10/2024 COMPR EHENS SADE MET. PANEL globulin 3.5 gm/dL 2.0-3. 5 normal Not Available [facility] Department [address] [place], [address] 09/10/2024 23:40:42 09/10/20 24 09/10/2024 COMPR EHENS SADE MET. PANEL albumin globulin ratio 1.1 % 1.1-2. 5 normal Not Available [facility] Department [address] [place] [address], [id number] 09/10/2024 23:40:42 09/10/20 24 09/10/2024 HENNY LEI. PANEL alkaline phosphatase 60 U/L 40-129 normal Not Available [facility] Department [address] [place] [address], [id number] 09/10/2024 23:40:42 09/10/20 24 09/10/2024 LIPAS E lipase 10 U/L 13-60 low Not Available [facility] Department [address] [place] [address], [id number] 09/10/2024 23:40:43 12/10/19 25 12/10/2024 COMPL ETE BLOOD COUNT AUTO DIFF white blood count 11.78 K/uL 3.5-11 .0 high Not Available [facility] Department [address] [place] [address], [id number] 12/10/2024 18:26:53 12/10/19 25 12/10/2024 COMPL ETE BLOOD COUNT AUTO DIFF red blood count 5.35 M/uL 3.90-5 .50 normal Not Available [facility] Department [address] [place] [address], [id number] 12/10/2024 18:26:53 12/10/19 25 12/10/2024 COMPL ETE BLOOD COUNT AUTO DIFF hemoglobin 15.2 g/dL 14.0-1 8.0 normal Not Available [facility] Department [address] [place] [address], [id number] 12/10/2024 18:26:53 12/10/19 25 12/10/2024 COMPL ETE BLOOD COUNT AUTO DIFF hematocrit 48.0 % 42.0-5 4.0 normal Not Available [facility] Department [address] [place] [address], [id number] 12/10/2024 18:26:53 12/10/19 25 12/10/2024 COMPL ETE BLOOD COUNT AUTO DIFF mean corpuscular volume 89.7 fL 80.0-1 00.0 normal Not Available [facility] Department [address] [place] [address], [id number] 12/10/2024 18:26:53 12/10/19 25 12/10/2024 COMPL ETE BLOOD COUNT AUTO DIFF mean corpuscular hemoglobin 28.4 pg 25.4-3 4.6 normal Not Available [facility] Department [address] [place] [address], [address] 12/10/2024 18:26:53 12/10/19 25 12/10/2024 COMPL ETE BLOOD COUNT AUTO DIFF mean corpuscular HGB conc 31.7 g/dL 31.0-3 7.0 normal Not Available [facility] Laboratory Department [address] [place] [address], 11452 12/10/2024 18:26:53 12/10/19 25 12/10/2024 COMPL ETE BLOOD COUNT AUTO DIFF red cell distribution width 12.5 % 11.5-1 4.5 normal Not Available [facility] Laboratory Department [address] [place] [address], 62534 12/10/2024 18:26:53 12/10/19 25 12/10/2024 COMPL ETE BLOOD COUNT AUTO DIFF platelet count 387 K/uL 150-40 0 normal Not Available [facility] Laboratory Department [address] [place] [address], 50868 12/10/2024 18:26:53 12/10/19 25 12/10/2024 COMPL ETE BLOOD COUNT AUTO DIFF neutrophils percent auto 60.8 % 35.0-6 6.0 normal Not Available [facility] Laboratory Department [address] [place] [address], 32655 12/10/2024 18:26:53 12/10/19 25 12/10/2024 COMPL ETE BLOOD COUNT AUTO DIFF imm gran pct auto 0.3 % 0.0-0. 6 normal Not Available [facility] Laboratory Department [address] [place] [address], 91324 12/10/2024 18:26:53 12/10/19 25 12/10/2024 COMPL ETE BLOOD COUNT AUTO DIFF lymphocytes percent auto 28.4 % 25.0-4 5.0 normal Not Available [facility] Laboratory Department [address] [place] [address], 65831 12/10/2024 18:26:53 12/10/19 25 12/10/2024 COMPL ETE BLOOD COUNT AUTO DIFF monocytes percent auto 6.5 % 0.0-13 .0 normal Not Available [facility] Laboratory Department [address] [place] [address], 79350 12/10/2024 18:26:53 12/10/19 25 12/10/2024 COMPL ETE BLOOD COUNT AUTO DIFF eosinophils percent auto 3.5 % 0.0-8. 0 normal Not Available [facility] Laboratory Department [address] [place] [address], 56684 12/10/2024 18:26:53 12/10/19 25 12/10/2024 COMPL ETE BLOOD COUNT AUTO DIFF basophils percent auto 0.5 % 0.0-1. 0 normal Not Available [facility] Laboratory Department [address] [place] [address], 89407 12/10/2024 18:26:53 12/10/19 25 12/10/2024 COMPL ETE BLOOD COUNT AUTO DIFF NRBC pct auto 0.0 /100_ WBC 0.0 normal Not Available [facility] Laboratory Department [address] [place] [address], 24289 12/10/2024 18:26:53 12/10/19 25 12/10/2024 COMPL ETE BLOOD COUNT AUTO DIFF neutrophils absolute auto 7.17 K/uL 1.5-7. 5 normal Not Available [facility] Department [address] [place] [address], 63820 12/10/2024 18:26:53 12/10/19 25 12/10/2024 COMPL ETE BLOOD COUNT AUTO DIFF imm gran abs auto 0.04 K/uL 0.00-0 .09 normal Not Available [facility] Department [address] [place] [address], 19686 12/10/2024 18:26:53 12/10/19 25 12/10/2024 COMPL ETE BLOOD COUNT AUTO DIFF lymphocytes absolute auto 3.34 K/uL 0.8-4. 8 normal Not Available [facility] Department [address] [place] [address], 93222 12/10/2024 18:26:53 12/10/19 25 12/10/2024 COMPL ETE BLOOD COUNT AUTO DIFF monocytes absolute auto 0.76 K/uL 0.4-1. 3 normal Not Available [facility] Laboratory Department [address] [place] [address], 18465 12/10/2024 18:26:53 12/10/19 25 12/10/2024 COMPL ETE BLOOD COUNT AUTO DIFF eosinophils absolute auto 0.41 K/uL 0.0-0. 8 normal Not Available [facility] Laboratory Department [address] [place], [address] 12/10/2024 18:26:53 12/10/1912/10/2024 COMPL ETE BLOOD COUNT AUTO DIFF basophils absolute auto 0.06 K/uL 0.0-0. 6 normal Not Available [facility] Department [address] [place] [address], 77504 12/10/2024 18:26:53 12/10/19 25 12/10/2024 COMPL ETE BLOOD COUNT AUTO DIFF NRBC abs auto 0.00 K/uL 0.00 normal Not Available [facility] Laboratory Department [address] [place] [address], 31065 12/10/2024 18:26:53 12/10/1912/10/2024 COMPR EHENS SADE MET. PANEL sodium 139 mmol/ L 136-14 5 normal Not Available [facility] Department [address] [place] [address], 69955 12/10/2024 18:32:27 12/10/19 25 12/10/2024 COMPR EHENS SADE MET. PANEL potassium 4.30 mmol/ L 3.5-5. 1 normal Not Available [facility] Department [address] [place] [address], 83689 12/10/2024 18:32:27 12/10/19 25 12/10/2024 COMPR EHENS SADE MET. PANEL chloride 102 mmol/ L 98-107 normal Not Available [facility] Department [address] [place] [address], 24621 12/10/2024 18:32:27 12/10/19 25 12/10/2024 COMPR EHENS SADE MET. PANEL carbon dioxide 25 mmol/ L 22-29 normal Not Available [facility] Department [address] [place] [address], 43037 12/10/2024 18:32:27 12/10/19 25 12/10/2024 COMPR EHENS SADE MET. PANEL anion gap 17 mmol/ L 10-20 normal Not Available [facility] Department [address] [place] [address], 02852 12/10/2024 18:32:27 12/10/19 25 12/10/2024 COMPR EHENS SADE MET. PANEL blood urea nitrogen 19 mg/dL 6-20 normal Not Available [facility] Laboratory Department [address] [place], [address] 12/10/2024 18:32:27 12/10/1912/10/2024 COMPR EHENS SADE MET. PANEL creatinine 0.68 mg/dL 0.67-1 .17 normal Not Available [facility] Department [address] [place], [address] 12/10/2024 18:32:27 12/10/1912/10/2024 COMPR EHENS SADE MET. [...] under the age of 18. Not Available [facility] Department [address] [place] [address], 40601 12/10/2024 18:32:27 12/10/1912/10/2024 COMPR EHENS SADE MET. PANEL glucose 85 mg/dL 70-106 normal Not Available [facility] Department [address] [place], [address] 12/10/2024 18:32:27 12/10/1912/10/2024 COMPR EHENS SADE MET. PANEL calcium 9.1 mg/dL 8.6-10 .3 normal Not Available [facility] Department [address] [place], [address] 12/10/2024 18:32:27 12/10/19 25 12/10/2024 COMPR EHENS SADE MET. PANEL bilirubin total 0.3 mg/dL 0.2-1. 2 normal Not Available [facility] Department [address] [place] [address], 25442 12/10/2024 18:32:27 12/10/19 25 12/10/2024 COMPR EHENS SADE MET. PANEL aspartate amino transferase 24 U/L 5-40 normal Not Available [facility] Laboratory Department [address] [place] [address], 33493 12/10/2024 18:32:27 12/10/19 25 12/10/2024 COMPR EHENS SADE MET. PANEL alanine aminotransfe rase 46 U/L 5-41 high Not Available [facility] Laboratory Department [address] [place], [address] 12/10/2024 18:32:27 12/10/19 25 12/10/2024 COMPR EHENS SADE MET. PANEL total protein 7.1 g/dL 6.4-8. 3 normal Not Available [facility] Department [address] [place] [address], 00050 12/10/2024 18:32:27 12/10/19 25 12/10/2024 COMPR EHENS SADE MET. PANEL albumin level 4.1 g/dL 3.5-5. 2 normal Not Available [facility] Department [address] [place] [address], 45137 12/10/2024 18:32:27 12/10/19 25 12/10/2024 COMPR EHENS SADE MET. PANEL globulin 3.0 gm/dL 2.0-3. 5 normal Not Available [facility] Department [address] [place] [address], 37487 12/10/2024 18:32:27 12/10/19 25 12/10/2024 COMPR EHENS SADE MET. PANEL albumin globulin ratio 1.3 % 1.1-2. 5 normal Not Available [facility] Department [address] [place] [address], 29766 12/10/2024 18:32:27 12/10/19 25 12/10/2024 COMPR EHENS SADE MET. PANEL alkaline phosphatase 58 U/L 40-129 normal Not Available [facility] Laboratory Department [address] [place] [address], 20009 12/10/2024 18:32:27 12/10/19 25 12/10/2024 LIPID PANEL WITH REFLE X triglyceride s 143 mg/dL 30-150 normal Refer ence Range s: <150 mg/dl Lulu l 150-1 99 mg/dl Borde rline High 200-4 99 mg/dl High >500 mg/dl Very High Not Available [facility] Department [address] [place], [address] 12/10/2024 18:32:28 12/10/19 25 12/10/2024 LIPID PANEL WITH REFLE X cholesterol 139 mg/dL 100-20 0 normal Not Available [facility] Department [address] [place], [address] 12/10/2024 18:32:28 12/10/19 25 12/10/2024 LIPID PANEL WITH REFLE X LDL cholesterol direct TNP mg/dL 0-100 Not Available [facility] Laboratory Department [address] [place], [address] 12/10/2024 18:32:28 12/10/1912/10/2024 LIPID PANEL WITH REFLE X LDL cholesterol calculated 79.0 mg/dL 0-100 normal Natio nal Barbara stero l Educa tion Progr am sugge sts the follo wing refer ence range : Optim al <100 mg/dL Near optim al/ab ove optim al 100-1 29 mg/dL Borde rline high 130-1 59 mg/dL High 160-1 89 mg/dL Very high >190 mg/dL Not Available [facility] Laboratory Department [address] [place], [address] 12/10/2024 18:32:28 12/10/19 25 12/10/2024 LIPID PANEL WITH REFLE X HDL cholesterol 31.5 mg/dL 40-60 low Major risk facto r for CHD: <40 mg/dL Negat sade risk facto r for CHD: >=60 mg/dL Not Available [facility] Laboratory Department [address] [place], [address] 12/10/2024 18:32:28 12/10/19 25 12/10/2024 LIPID PANEL WITH REFLE X chol HDL ratio 4.41 Risk CHOL/ HDL CHOL/ HDL Ratio Male Femal e 1/2 AVERA GE 3.43 3.27 AVERA GE 4.97 4.44 2 X AVERA GE 9.55 7.05 3 X AVERA GE 23.39 11.04 Not Available [facility] Laboratory Department [address] [place], [address] 12/10/2024 18:32:28 12/10/19 25 12/10/2024 TSH REFLE X FREE T4 free T4 (free thyroxine) TNP NG/dL 0.9-1. 7 Not Available [facility] Laboratory Department [address] [place] [address], 98322 12/10/2024 18:32:29 12/10/19 25 12/10/2024 TSH REFLE X FREE T4 TSH reflex free T4 2.02 uIU/m L 0.27-4 .20 normal Not Available [facility] Department [address] [place] [address], 58152 12/10/2024 18:32:29 12/10/19 25 12/10/2024 INSUL IN insulin 84.3 i??IU /mL 2.6-24 .9 high Not Available [facility] Department [address] [place] [address], 36068 12/10/2024 18:33:25 12/10/19 25 12/10/2024 VITAM IN B12 AND FOLAT E vitamin B12 638 pg/mL 232-12 45 normal Not Available [facility] Department [address] [place] [address], 20547 12/10/2024 18:40:01 12/10/19 25 12/10/2024 VITAM IN B12 AND FOLAT E folate 3.4 NG/mL 4.8-18 .8 low Lulu l: >5.9 ng/mL Inter media te: 4.0-5 .9 ng/mL Defic ient: <4.0 ng/mL Not Available [facility] Department [address] [place] [address], 16817 12/10/2024 18:40:01 12/10/19 25 12/10/2024 VITAM IN D 25-OH TOTAL vitamin D 25-oh total 16.9 NG/mL Refer ence Range : Defic ient <20 ng/mL Insuf ficie nt 21-29 ng/mL Suffi cient >30 ng/mL Not Available [facility] Laboratory Department [address] [place] [address], 64615 12/10/2024 18:43:34 12/10/19 25 12/10/2024 HEMOG LOBIN [...] Consi stent with Diabe titi Not Available [facility] Laboratory Department [address] [place] [address], 22588 12/10/2024 18:45:09 12/13/1912/13/2024 DRUG SCREE N URINE opiate screen urine Negati ve negati ve Not Available [facility] Department [address] [place] [address], 17784 12/13/2024 17:22:49 12/13/19 25 12/13/2024 DRUG SCREE N URINE barbiturates , urine Negati ve negati ve Not Available [facility] Department [address] [place] [address], 57201 12/13/2024 17:22:49 12/13/1912/13/2024 DRUG SCREE N URINE phencyclidin e screen urine Negati ve negati ve Not Available [facility] Department [address] [place] [address], 66463 12/13/2024 17:22:49 12/13/19 25 12/13/2024 DRUG SCREE N URINE amphetamine screen urine Negati ve negati ve Not Available [facility] Department [address] [place] [address], 02885 12/13/2024 17:22:49 12/13/19 25 12/13/2024 DRUG SCREE N URINE benzodiazepi shira screen urine Negati ve negati ve Not Available [facility] Laboratory Department [address] [place] [address], 98002 12/13/2024 17:22:49 12/13/19 25 12/13/2024 DRUG SCREE N URINE cocaine screen urine Negati ve negati ve Not Available [facility] Department [address] [place] [address], 97719 12/13/2024 17:22:49 12/13/19 25 12/13/2024 DRUG SCREE N URINE cannabinoid screen urine Negati ve negati ve Not Available [facility] Department [address] [place], [address] 12/13/2024 17:22:49 12/13/19 25 12/13/2024 DRUG SCREE N URINE methadone screen, urine Negati ve negati ve Not Available [facility] Department [address] [place] [address], 52622 12/13/2024 17:22:49 12/13/19 25 12/13/2024 DRUG SCREE N URINE propoxyphene urine screen Negati ve negati ve Not Available [facility] Department [address] [place] [address], 33207 12/13/2024 17:22:49 12/13/19 25 12/13/2024 DRUG SCREE N URINE oxycodone urine screen Negati ve negati ve Not Available [facility] Department [address] [place] [address], 90759 12/13/2024 17:22:49 12/13/19 25 12/13/2024 DRUG SCREE N URINE fentanyl screen urine Negati ve negati ve Not Available [facility] Laboratory Department [address] [place] [address], 46101 12/13/2024 17:22:49 12/13/19 25 12/13/2024 DRUG SCREE [...] withi n [address] [facility] er testi ng. Not Available [facility] Laboratory Department [address] [place], [address] 12/13/2024 17:22:49 01/04/20 23 11/15/2022 miguel r monit or No observ ation record ed. [email or web address] [facility] [address] [place], [address], 01/06/2023 13:20:30 09/11/20 24 09/11/2024 CT, abdom en + pelvi s, w/ contr ast [facility] [address] [place] [address] CT Scan Report Signed Patien t: Samuel Bo MR#: [id number] : 1999 Acct:A [id number] Age/Se x: 23 / M ADM Date: Loc: HE.AER Attend ing Dr: Germán moss Physic raymundo: Bhupinder marin MD Date of Servic e: Proced ure(s) : CT abdome n pelvis w IV con Access ion Number (s): [id number] H cc: Eugene Blakely MD PROCED URE [...] 9 DD/DT: 103 TD/TT: Transc riptio nist: [email or web address] [facility] [address] [facility], [place], [address], 09/11/2024 07:30:31 12/14/19 25 12/13/2024 XR, chest , 2 view [facility] [address] [facility] [place] [address] XRay Report Signed Patien t: Samuel Bo MR#: [id number] : 1999 Acct:H [id number] Age/Se x: 24 / M ADM Date: Loc: HE.ER Attend ing Dr: Germán moss Physic raymundo: Nithin mukherjee PA-C Date of Servic e: Proced ure(s) : XR chest 2V Access ion Number (s): [id number] H cc: Eugene Blakely MD EXAM: XR [...] ly Signed in [facility] By AMADO Dikcson MD, MD 148 XR/XR chest 2V IMPRES AMELIA: No consol idatio n Dictat ed By: Amado dickson MD Signed By: 1611 DD/DT: 1904 TD/TT: 1914 Transc riptio nist: [facility] [address] [facility], [place], [address], 12/15/2024 13:24:09 12/24/19 25 elect malou woods am No observ ation record ed. [email or web address] Not Available 2024 10:55:11 Result Notes None recorded. Problems Name Problem SNOMED Code Status Onset Date Resolution Date Notes Provider Name and Address Organization Details Recorded Time Hypothyro idism 08899240 Active 2021 AMARA Jhaveri MA [facility] 18:39:22 Obesity 537936255 Active 2021 AMARA Jhaveri [facility] 11/13/202 2 18:46:47 Bipolar disorder 30073421 Active 2021 Mary Kate Garces MA null, [facility] 2 18:47:02 Asthma 127315782 Active 2021 ENMA Silvestre [address] [place] [address] AMARA Gagnon, [address], [facility] 2 10:23:12 Hypertens sade disorder 58378753 Active 2021 ENMA Silvestre [address] [place] [address] AMARA Gagnon, [address], [facility] 2 10:23:19 Sleep apnea 58889820 Active 2021 ENMA Silvestre [address] [place] [address] AMARA Gagnon, [address], [facility] 2 10:23:35 Posttraum atic stress disorder 10261351 Active 2021 Mary Kate Garces MA null, [facility] 2 10:38:06 Coronary arteriosc lerosis 01874734 Active 2021 hx of suspected anterior [place] ENMA Silvestre [address] [place], [place] [address], [address], [facility] 2 11:32:38 Harmful pattern of use of multiple substance s 577434372 Active 2021 noted in past medical records ENMA Silvestre [address] [place], [place] [address] [place], [address], [facility] 2 11:34:51 History of risk factor for suicide 428828575270 103 Active 2023 Heydi Phillips [facility] [address] [facility] [place], [address], [facility] 4 20:52:36 Well child 106505130 Active 2024 Coleen Sabillon NP [address] [place], [address], [facility] 11:43:29 Problem Notes None recorded. Procedures Surgical History Date Name Laterality Status Provider Name and Address Organization Details Recorded Time 02/26/20 Telemedicine Documentation cancelled Coleen Sabillon NP [address] [place], [address], [facility] 02/25/2025 07:24:22 12/24/19 25 BEDS-7 completed Coleen Sabillon NP [address] [place], [address], [facility] 12/24/2024 11:40:43 12/24/19 25 Dawes Sleepiness Scale completed Coleen Sabillon NP [address] [place], [address], [facility] 12/24/2024 11:40:53 12/24/19 25 Telemedicine Documentation completed Coleen Sabillon NP [address] [facility] [place], [address], [facility] 12/24/2024 11:41:20 11/15/20 22 EKG completed CARMELINA ROJAS NP [address] [place], [address], [facility] 11/15/2022 15:46:56 10/10/20 22 PHQ-9 Patient Health Questionnaire completed Mary Kate Garces MA [facility] 10/10/2022 09:44:03 12/16/19 22 Cerumen Removal completed ENMA Patton [address] [place], [address], [facility] 12/16/2021 12:04:29 Imaging Results Imaging Date Name Status LastModified by Organization Details LastModified Time 11/15/2022 holter monitor completed [email or web address] [facility] [address] [place], [address], 01/06/2023 13:20:30 09/11/2024 CT, abdomen + pelvis, w/ contrast completed [email or web address] [facility] [address] [place], [address], 09/11/2024 07:30:31 12/13/2024 XR, chest, 2 view completed [email or web address] [facility] [address] [facility] [place], [address], 12/15/2024 13:24:09 12/24/2024 electrocardiogram completed [email or web address] Informa [...] Address Organization Details Last Updated DateTime 4 765033. 84 g 79 /min 98 % 98 % 136 mm[Hg] 76 mm[Hg] Patricia Juarez [facility] 4 07:37:33 Date Recorded Body height Body mass index (BMI) Body weight Provider Name and Address Organization Details Last Updated DateTime 12/10/2024 175.26 cm 57.7 kg/m2 412013.18 g Connie Mendoza MA [facility] 12/10/2024 11:07:14 Date Recorded Body height Body mass index (BMI) Body mass index (BMI) Percentile per age and sex Body weight Heart rate [...] 3 175.26 cm 55.5 kg/m2 99 % 587829. 43 g 81 /min 97 % 97 % 92 /min 82 /min 89 /min 97 % 97 % 97 % 97 % 97 % 97 % 114 mm[Hg] 70 mm[Hg] 102 mm[Hg] 60 mm[Hg] 114 mm[Hg] 80 mm[Hg] 100 mm[Hg] 68 mm[Hg] BROCK Guzman [facility] 3 14:15:56 Date Recorded Body height Body mass index (BMI) Body mass index (BMI) Percentile per age and sex Body weight Heart rate Oxygen saturation Oxygen saturation in Arterial blood by Pulse oximetry Systolic blood pressure Diastolic blood pressure Provider Name and Address Organization Details Last Updated DateTime 3 175.26 cm 56.3 kg/m2 99 % 821952. 79 g 102 /min 97 % 97 % 130 mm[Hg] 68 mm[Hg] BROCK Guzman [facility] 3 11:08:12 Social History Question Answer Notes LastModified by Organizat ion Details LastModified Time Tobacco Smoking Status Current Every Day [facility] 10/09/2022 18:43:17 What Was The Date Of Your Most Recent Tobacco Screening? 10/09/2022 [email or web address] Information not available 10/09/2022 Sex: Male Functional Status None recorded. Mental Status None recorded. Family History Nothing Reported. Medical History Condition Response depression Y Immunizations Vaccine Type Date Status Note Provider Nam e and Address Organization Details Recorded Time COVID-19, mRNA, LNP-S, PF, 30 mcg/0.3 mL dose 08/13/2021 completed Not Available [facility] 3 19:23:46 COVID-19, mRNA, LNP-S, PF, 30 mcg/0.3 mL dose 09/13/2021 completed Not Available [facility] 19:23:46 Tdap 06/10/2014 completed Not Available [facility] 06/25/2023 19:23:46 Past Encounters Encounter ID Performer Location Encounter Start Date Encounter Closed Date Diagnosis/Indication Diagnosis SNOMED-CT Code Diagnosis ICD10 Code Diagnosis Note [id number] Lacey Valerio NP [facility] [address] [place] [address] 04/27/2011 14:31:49 04/27/2011 15:17:44 [id number] [facility] [address] [address] 12/16/2021 11:20:51 12/16/2021 13:20:15 Acute upper respiratory infection 03096409 J06.9 Exacerbati on of intermittent asthma 515625972 J45.21 Impacted c erumen in right ear 0260482252 313110 H61.21 [id number] ENMA Patton [address] [address] 12/21/2021 14:22:48 12/21/2021 15:41:08 Productive cough 63633950 R05.9 Thoracic back pain 65047 8004 M54.6 Acute bronchitis 7976465 2 J20.9 [id number] ENMA Silvestre [facility] [address] [facility] [address] [place] [address] 10/10/2022 09:19:13 10/10/2022 10:30:05 Hypothyroidism 76837527 E03.9 Managed with levothyrox ine 25 MCG dailyCheck TSH Obesity 006819114 E66.9 We have discussed the adverse health consequenc es of obesity today as well the benefits of weight loss. We have focused on both diet and exercise management strategies in our discussion today. Will continue to monitor and assess. Asthma 214773076 J45.90 9 Managed with Flovent twice daily and albuterol as neededRefi ll Flonase today per his request Bipolar disorder 1312766 4 F31.9 Patient describes a significan t psychiatri c past medical historyHe was hospitaliz ed [facility] from January to July 2022He states he was treated with Haldol, Abilify, Lexapro, hydroxyzin e, Ativan, AdderallHe is currently off all psych medication s since he ran out of prescripti onsHe is on a wait list for [employer] and would like referral to [facility] psychiatry We agreed to refill his Lexapro and hydroxyzin e today we agreed to partial program referral to further stabilize him on medication sGiven records from [facility] indicating history of snorting adderall and no records of ativan on masspat will not refill adderall or benzo at this timePsych [facility], sooner if needed Hypertensive disorder 38 314655 I10 Blood pressure elevated today 142/78Pati ent reports he is following with [facility] Records from [facility] indicate :normal echo May 2022 histr oy of prior AK but no records available ecg with possible anterior MIhe would like to establish with cardio locally given transporta tion issuesHe is not currently taking any blood pressure medication sWe discussed lifestyle interventi on including exercise, diet, sodium reductionp atient is unable to check blood pressure at homeFollow -up 1 month Sleep apnea [id number] G47 .30 Patient needs new sleep study to qualify for CPAP [id number] CARMELINA ROJAS NP [facility] [address] [place] [address] 11/15/2022 13:03:44 11/15/2022 14:17:32 Palpitations [id number] R00.2 Has had previous normal event monitors. [...] a cardiac issue. CN Hypertensive disorder 38 051444 I10 History of hypertensi on. Reportedly previously on antihypert ensive agents. Now on no medication s with good blood pressure control. Monitor, but there is no role for further medical therapy at this point. [id number] ENMA Silvestre [facility] [address] [facility] [address] [place] [address] 01/10/2023 12:01:08 01/10/2023 13:25:31 Bipolar disorder [id number] F31.9 Patient describes a significan t psychiatri c past medical historyCur rently stable with no SIShe was hospitaliz ed at [facility] psychiatri c unit from January to Julyhe is currently in [facility] resp[facility] program in [place] where she states he is taking lamictal 25 mg daily Nausea and vomiting 1693 1999 R11.2 Nausea, vomiting and diarrhea x [...] sooner if needed Increased frequency of urination 828887677 R35.0 Chronic urinary frequencyN ormal UA today [id number] ENMA Silvestre [facility] [address] [address] 12/20/2022 09:38:59 12/20/2022 11:54:54 Hypothyroidism 48085137 E03.9 Managed with levothyrox ine 25 MCG dailyRecen t normal TSH Obesity 478195776 E66.9 We have discussed the adverse health consequenc es of obesity today as well the benefits of weight loss. We have focused on both diet and exercise management strategies in our discussion today. Will continue to monitor and assess. Asthma 442158297 J45.90 9 Managed with Flovent twice daily and albuterol as needed until she ran out of Floventshe ended up in ED with asthma attack per her reportAgre ed to resume FloventWil l reviewed ED notes when received Bipolar disorder 1000734 4 F31.9 Patient describes a significan t psychiatri c past medical historyCur rently stable with no SIShe was hospitaliz ed at [facility] psychiatri c unit from January to Julyhe states he was treated with Haldol, Abilify, Lexapro, hydroxyzin e, Ativan, AdderallSh e is currently in [facility] respite program in [place] where she states he is taking lamictal and injectionS he was accepted as a patient at [facility] but never called for appointmen tPt agreed to call psych today to schedule appointmen tFollow up 1 month, sooner if needed Edema of l ower extremity [id number] R60.0 Given her recent SOB and edema will check pr bnp and f/u 2-4 weeks Urinary symptoms 9655739 08 R39.9 urinary frequency, episodic incontinen ce and intermitte ntly dysuriapt reports these are chronic and she has been [facility] in the past with DDAPVWill check UA, culture, psa todayShe would like to see urology locally [id number] ENMA Silvestre [facility] [address] [facility] [place] [address] 02/16/2023 10:59:27 02/16/2023 12:00:05 Obesity 273484812 E66.9 We have discussed the adverse health consequenc es of obesity today as well the benefits of weight loss. We have focused on both diet and exercise management strategies in our discussion today. Will continue to monitor and assess. Pain of le ft ankle joint [id number] 8673365 M25.572 L ankle pain following minor injuryPati ent is partial weight bearingHer exam is notable for lateral malleolus tenderness and decreased ROMWill obtain xray and f/u with resultShe may continue ice, rest, compressio n , elevation [id number] Heydi Phillips NP [facility] [address] [facility] [place] [address] 11/01/2024 07:27:11 11/01/2024 11:51:56 Bipolar II disorder 87598345 F31.81 denies SIdenies psychotic episodedis cussed plan to bridge medication pending psychiatri c medication management Low back pain 927977354 M54.50 Short course treatment for lumbar back pain with sciaticaPa tient verbalizes understand ing is amenable to PTfollow up in 1-2 weeks Hypothyroidism 03572610 E03.9 Current stated dose levothyrox ine 25mcg. not takingwill check thyroid labs prior to restart for dosing accuracy Obesity 164492675 E66.9 Body mass index 40+ - severely obese 137899427 Z68.43 referral to medical weight loss Housing in stability due to imminent risk of homelessness 4939935059 Z59.811 Referral to [facility] At [facility] risk of sexually transmitted infection 930527263 Z20.2 Financial insecurity 405 8971505 Z59.86 Not working. Request for community support.Re ferral to [facility] Food insecurity [id number] 3 Z59.41 Does not have financial resources to buy foodReferr al to [facility] Hormonal requirement 112 724075 R94.7 Patient request for HRT for transgende r female status [id number] Primary Care Nurse [facility] [address] [place] [phone] 12/10/2024 10:25:38 12/10/2024 13:31:39 Obesity 969495314 E66.9 [id number] Coleen Sabillon, HILARIA [facility] [address] [place] [address] 12/24/2024 11:14:09 12/24/2024 12:09:19 Body mass index 30+ - obesity 588404616 Z68.43 Jose presents for OM consult. Lowest and highest adult weight: 380# was the lowest adult weight and highest adult weight 425# a few months ago.Curren t weight: 390#Curren t Diet: Breakfast: heavy on carbs...br ead, bagel with waffles, pancakes, gaffney, sausage and syrup. Lunch: Eats big portions (I eat my feelings). Yesterday spent $83 on [employer] food and ate it all. Dinner: Doesn't [...] the past without success. Referral to nutritioni . They have been clean from alcohol and [...] the health record Folic acid deficiency 19 1529452 E53.8 Will begin Folic acid 400mcg daily. Vitamin D deficiency 347 42895 E55.9 Will begin 2000 i.u. daily Insulin resistance 72918 5000 E88.819 TAMIKA IR level is 17.7. We have discussed the adverse health consequenc es of obesity today as well the benefits of weight loss. We have focused on both diet and exercise management strategies in our discussion today. [facility] . Will continue to monitor and assess. Snoring 04384668 R06.83 Has an order for a sleep study. Health Concerns Section Related Observation LastModified by Organization Detai ls LastModified Time None Recorded Concern Status LastModified by Organization Details LastModified Time None Recorded Advance Directives Directive None Recorded Payers Insurance Date Sequence Insurance Name Policy Number Policy Pate Covered Member ID Pate Member ID Guarantor Name 02/18/2025 1 [place] [facility] Kamran Bo [id number] Kamran Bo Notes Date Note Type Note Provider Name and Address Organization Details Recorded Time 3 text/html Pt. presents in office today for hypertension and bipolar. 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 anterior AK, HTN, hypothyroidism, obesity, MIRA She presents today to follow up bipolar Pt is currently in [facility] respite program in [facility] is being treated with lamictal 25 mg dailyFeels his mental health is significantly improvedHx of cuttingNo SI or self harm currentlyHx of psych hospitalization [facility] January through Julyhe states mood has been up and downNo SI currently She [place] [facility] [place] [facility] after she spoke about taking fentanyl and there was concerned about SIShe had eval with [facility] and was clearedPt states she had overdose [...] down at home Alcon Blakely MD [address] [place], [address], [facility] 01/11/2023 13:28:37 3 text/html Pt. presents in office today for ankle pain and nutrition refer . 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 anterior AK, HTN, hypothyroidism, obesity, MIRA She presents today [...] and wrapping the ankle Alcon Blakely MD [address] [place], [address], [facility] 02/17/2023 10:35:16 4 text/html pt presents today [...] most recent cocaine+ tobacco use Hx of AK related to cocaine use, no records availableADHD , treated with stimulant med, multiple prescribers noted on PDMP since 60, pt is keen for medical weight loss referralhypothyroid not taking medication.Former dose 25 mcg.Sleep apneaHx HTN, BP 136/76Pt states he has borderline personality diagnosisHx PTSDHx of suidicality, overdose on Seroquel (2021) Denies SI today Alcon Blakely MD [address] [place], [address], [facility] 11/05/2024 08:45:41 5 text/html pt presents to office for ekg, labs and measurements.-ROSEMARIE Sabillon NP [address] [place], [address], [facility] 12/10/2024 11:13:39 5 text/html Jose presents for OM consult. Lowest and highest adult weight: 380# was the lowest adult weight and highest adult weight 425# a few months ago.Current weight: 390#Current Diet: Breakfast: heavy on carbs...bread, bagel with waffles, pancakes, gaffney, sausage and syrup. Lunch: Eats big portions (I eat my feelings). Yesterday spent $83 on [employer] food and ate it all. Dinner: Doesn't [...] BED? YesSleep apnea? Score Gissell Montano MD [address] [place] [address], [phone], [facility] 12/27/2024 20:07:26
--- OUTSIDE RECORDS SUMMARY | 2025-04-15 21:25 | XMS_ITS | Encounter Summary ---
Author Organization [employer] Address [address] [place] [address] Care Team Providers Care Corporate Sales Trainer Name Role Phone Phani Lacey EDWARDS Primary Care Provider Provider, Not In System Primary Care Provider Un available Phani Lacey GRACE Primary Care Provider [phone] Provider, Not In System Primary Care Provider Un available Reason for Visit * Reason Comments Med Refill Encounter Details Date Type Department Care Team (Late st Contact Info) Description 06/20/[address] [phone] Isaiah Suarez MD [address] [place] [address] [id number] Attention deficit hyperactivity disorder (ADHD), other type; [...] with others, in a hotel, in a detention, living outside on the street, on a [...] documented as of this encounter Care Teams Corporate Sales Trainer Relationship Specialty Start Date End Date Lacey Jeronimo FNP [address] [place] [address] PCP - General Family Medicine 06/05/24 11/10/24 Provider, Not In System PCP - General Family Medicine 11/11/24 01/20/25 Lacey Jeronimo FNP [address] [place] [phone] PCP - General Family Medicine 01/21/25 01/23/25 Provider, Not In System PCP - General Family Medicine 01/24/25 documented as of this encounter
--- OUTSIDE RECORDS SUMMARY | 2025-04-15 21:25 | XMS_ITS | Clinical Summary ---
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 60 tablet 4 08/06/20 Active Active Problems Problem Noted Date Diagnosed [...] Type Department Care Team Description 02/18/2025 Telephone [facility] [address] [place] [phone] Lacey Jeronimo FNP 01/23/2025 Telephone [facility] [address] [phone] Debbi Orozco, SECONDARY SPECIAL EDUCATION TEACHER Follow-up ([facility] and LUCY) from Last 3 Months Immunizations Immunization Administration Dates Next Due Moderna Covid-19 Vaccine [...] with others, in a hotel, in a retirement, living outside on the street, on a [...] Date Last Done Comments Lipid Panel 2002 Disability Screening 2002 Alcohol/Substance Use Screening 2014 Family Planning (PISQ) 2017 HPV Vaccines (1 - 3-dose series) 2017 Meningococcal B Vaccine (1 o f 2 - Standard) 2018 Hepatitis C Screening 2020 Hepatitis B Vaccines (1 of 3 - 19+ 3-dose series) 2021 Pneumococcal Vaccine: Pediatrics (0 to 5 Years) and At-Risk Patients (6 to 49) Years) (1 of 2 - PCV) 2021 COVID-19 Vaccine ( - 2023-2 5 season) 2024 03/22/2024, 09/03/2021, [...] Procedure Name Priority Date/Time Associated Diagnosis Comments HM CHLAMYDIA/GONORRHEA, URINE Routine 10/16/2023 HM HIV 1/2 ANTIGEN AND ANTIBODY Routine 05/04/2023 from Last 3 Months or Most Recently Relevant to Health Maintenance Results * HM Chlamydia/Gonorrhea, Urine (10/16/2023) Chlamydia, Urine None Detected Negative, Indeterminate, None Detected, Invalid, Specimen unsatisfactory for evaluation, Weakly Positive Urine Historical Provider HEALTH MAINTENANCE Final Result * HIV 1/2 Antigen and Antibody (05/04/2023) HIV Ag/Ab Nonreactive Historical Provider HEALTH MAINTENANCE Final Result from Last 3 Months or Most Recently Relevant to Health Maintenance Insurance [employer] Care Teams Clothing And Textiles Teacher Relationship Specialty Start Date End Date Provider, Not In System PCP - General Family Medicine 01/24/25
--- OUTSIDE RECORDS SUMMARY | 2025-04-15 21:25 | XMS_ITS | Encounter Summary ---
Author Organization [facility] Address [address] [place] [address] Care Team Providers Care Compliance Reviewer Name Role Phone Ed, [facility]-Attn: Primary Care Provider Unavailable Encounter Details Date Type Department Care Team (Late st Contact Info) Description 05/06/2022 Orders Only [facility] Interventional Radiology [address] [place] [phone] Deven Hodges MD [address] [place] [phone] Social History Tobacco Use Types Packs/Day Years [...] documented as of this encounter Care Teams Compliance Reviewer Relationship Specialty Start Date End Date Ed, [facility]-Attn: PCP - General 12/25/24 documented as of this encounter
[2025-04-15 21:31] LABS: Troponin-I High Sensitivity < 2.7 ng/L (<3.5-35.0)
--- NOTE | 2025-04-15 22:01 | ED.SYNCOPE ---
HPI - Syncope General Chief Complaint: Fall Stated Complaint: SYNCOPE, FALL +COLLAR PER EMS Time Seen by Provider: 04/15/25 21:03 Source: patient, EMS and old records reviewed Mode of arrival: EMS Limitations: no limitations History of Present Illness ED Provider: GAGAN VILLALPANDO narrative: 24 yo patient with PMH of PTSD, depression, borderline personality disorder, not on thinners and who comes in after having a bad day today so he snorted a dime of cocaine. He walked a lot to clear his mind. He then felt weird and dizzy with chest tightness. The next thing he knew he was on the ground. He has a headache and L sided muscle neck pain. NO other injuries. He has no CP/SOB now. He has no recent infectious symptoms. He denies SI/HI MD complaint: loss of consciousness and felt faint Onset (ago): minute(s) ([employer]) Prodromal symptoms: none Witnessed: No Context: other (walking) Injuries sustained associated with event: neck and head Current symptoms: back to baseline History: other Treatments prior to arrival: none Related Data Previous Rx's ?Medication ?Instructions ?Recorded albuterol sulfate 90 mcg/actuation 2 puff inhalation Q6H PRN wheezing 04/25/24 aerosol inhaler (Ventolin HFA) 30 days #1 inhaler aspirin 81 mg chewable tablet 1 tab PO DAILY 30 days #30 tabs 04/25/24 dextroamphetamine-amphetamine ER 1 cap PO DAILY 30 days #30 caps 04/25/24 30 mg 24hr capsule,extend release (Adderall XR) docusate sodium 100 mg capsule 100 mg PO BID indigestion 30 days 04/25/24 #60 caps fluticasone propionate 100 1 inh inhalation BID 30 days #1 ea 04/25/24 mcg/actuation blister powder for inhalation gabapentin 400 mg capsule 1,200 mg (3 x 400 mg) PO TID 30 04/25/24 days #270 caps melatonin 3 mg tablet 6 mg (2 x 3 mg) PO BEDTIME PRN 04/25/24 Insomnia 30 days #60 tabs trazodone 50 mg tablet 50 mg PO BEDTIME MRX1 PRN Insomnia 04/25/24 30 days #60 tabs Allergies Allergy/AdvReac Type Severity Reaction Status Date / Time No Known Allergies Allergy Verified 04/15/25 20:39 Review of Systems Review of Systems: Constitutional : No Fever, No Chills, No Fatigue ENT/Mouth : No sore throat, No Rhinorrhea Eyes: No Eye Pain, No Swelling, No Redness Cardiovascular : pos Chest Pain, pos SOB, No Dyspnea on Exertion Respiratory : No Cough, No Sputum Gastrointestinal : No Nausea, No Vomiting, No Diarrhea, No abdominal Pain Genitourinary : No Dysuria, No Urinary Frequency, No Hematuria, Musculoskeletal : No joint pain, No Myalgias, No Joint Swelling Skin : No Skin Lesions, No rash Neuro : No Weakness, No Numbness, pos Dizziness, positive Headache Psych : No Anxiety/Panic, No Depression All other systems reviewed and are negative [facility] Past Medical History Attestation statement: The following information was validated with the patient. Source: old records reviewed Medical History Medical clearance for psychiatric admission Asthma MIRA (obstructive sleep apnea) Social History Social History Household Members: None Housing: Homeless Do you presently have visiting nurse or other home services: No Patient Tobacco Use Status: Former Tobacco user Years Smoked: 3 Smoked in Last 30 Days: Yes e-Cigarette/Vaping Use: Currently Using Second Hand Smoke Exposure: No Use of substances other than those prescribed or required for medical reasons: Yes Substance Use Type: Crack/Cocaine Advance Directives: No Advance Directives Information Provided: No Do you have a plan to hurt others: No Plan service: No Sexual orientation: Bisexual Physical Exam Vital Signs: Vital Signs: Last Vital Signs Temp 97.4 F 04/15/25 22:17 Pulse 73 04/15/25 22:17 Resp 14 04/15/25 22:17 BP 114/68 04/15/25 22:17 Pulse Ox 99 04/15/25 22:17 O2 Del Method Room Air 04/15/25 22:17 BMI result Body Mass Index 57.1 Appearance: Alert. Oriented X3. No acute distress. Eyes: Pupils equal, round and reactive to light. ENT: Pharynx normal. atraumatic Neck: Normal inspection. Neck supple. collar in place, left trapezius ttp CVS: Normal heart rate and rhythm. Pulses normal. Respiratory: No respiratory distress. Breath sounds normal. Abdomen: Soft and nontender. Skin: Skin warm and dry. Normal skin color. Normal skin turgor. Extremities: No lower extremity edema. No calf ttp Neuro: Oriented X 3. No motor deficit. No sensory deficit. CN2-12 intact Course Course Course Narrative: pain in left knee while walking mild but no swelling and no bony ttp no deformity and no patella pain doubt fracture Medical Decision Making Medical Decision Making [facility] Narrative: 24 yo patient with PMH of PTSD, depression, borderline personality disorder, not on thinners here with syncope with prodrome and some chest tightness after using cocaine - at this time will need basic labs, trop x 2, CPK, ddimer, EKG, CT head/cspine. He has no symptoms now and has no chest pain at this time. Differential Diagnosis Differential Diagnoses: The differential diagnosis associated with the presentation includes syncope, vasospasm, drug use, rhabdo, VTE less likely, no pain now doubt dissection Admission/Observation Consideration of admission/observation: Escalation of care including admission/observation considered trop flat x 2, ddimer negative CT head/cspine negative no new symptoms feels better stable for DC, steady gait no dizziness Lab Data [facility] Lab Attestation statement: I reviewed the patient's lab results. 04/15/25 21:00 04/15/25 21:00 Labs: Lab Results 04/15/25 04/15/25 04/15/25 Range/Units 20:46 21:00 21:59 WBC 13.3 H (4.8-10.8) X10*3/uL RBC 5.19 (4.60-5.80) X10*6/uL Hgb 15.0 (14.0-18.0) g/dl Hct 43.7 (42.0-52.0) % MCV 84.2 (80.0-98.0) fL MCH 28.9 (27.0-33.0) pg MCHC 34.3 (31.0-36.0) g/dl RDW 13.3 (11.0-16.0) % Plt Count 372 (160-400) X10*3/uL MPV 8.7 L (9.4-12.4) fL Immature Gran % (Auto) 0.5 H (0.0-0.4) % Neut % (Auto) 64.4 (45-73) % Lymph % (Auto) 24.4 (20-40) % [place] % (Auto) 6.7 (2-11) % Eos % (Auto) 3.5 (0-4) % Baso % (Auto) 0.5 (0-2) % Lymph # (Auto) 3.2 (1.2-4.9) X10*3/uL [place] # (Auto) 0.9 (0.1-1.2) X10*3/uL Eos # (Auto) 0.5 H (0.0-0.4) X10*3/uL Baso # (Auto) 0.1 (0.0-0.2) X10*3/uL Abs Immat Gran (auto) 0.07 H (0.00-0.03) X10*3/uL Absolute Neuts (auto) 8.5 H (2.0-8.3) x10*3/uL Absolute Nucleated RBC 0.000 (0.0-0.012) X10*3/uL Nucleated RBC % (auto) 0.0 (0.0-0.2) /100WBC D-Dimer High Sensitivty < 150 NG/ML Sodium 139 (135-145) mmol/L Potassium 3.6 (3.3-5.1) mmol/L Chloride 105 (96-108) mmol/L Carbon Dioxide 24 (22-29) mmol/L Anion Gap 14 (12-20) BUN 12 (9-16) mg/dL Creatinine 0.65 (0.5-1.4) mg/dL Estim Creat Clear Calc 283.7 Estimated GFR > 60 POC Glucose 107 (60-115) mg/dL Random Glucose 92 (60-115) mg/dL Calcium 8.7 (8.4-10.2) mg/dL Total Bilirubin 0.2 (0.0-1.0) mg/dL AST 33 (5-37) U/L ALT 46 H (0-40) U/L Alkaline Phosphatase 51 (39-117) U/L Total Creatine Kinase 370 H (38-174) U/L Troponin I High Sens < 2.7 (<3.5-35.0) ng/L Total Protein 7.6 (6.5-8.0) g/dL Albumin 3.8 (3.5-5.0) g/dL 04/15/25 Range/Units 22:59 WBC (4.8-10.8) X10*3/uL RBC (4.60-5.80) X10*6/uL Hgb (14.0-18.0) g/dl Hct (42.0-52.0) % MCV (80.0-98.0) fL MCH (27.0-33.0) pg MCHC (31.0-36.0) g/dl RDW (11.0-16.0) % Plt Count (160-400) X10*3/uL MPV (9.4-12.4) fL Immature Gran % (Auto) (0.0-0.4) % Neut % (Auto) (45-73) % Lymph % (Auto) (20-40) % [place] % (Auto) (2-11) % Eos % (Auto) (0-4) % Baso % (Auto) (0-2) % Lymph # (Auto) (1.2-4.9) X10*3/uL [place] # (Auto) (0.1-1.2) X10*3/uL Eos # (Auto) (0.0-0.4) X10*3/uL Baso # (Auto) (0.0-0.2) X10*3/uL Abs Immat Gran (auto) (0.00-0.03) X10*3/uL Absolute Neuts (auto) (2.0-8.3) x10*3/uL Absolute Nucleated RBC (0.0-0.012) X10*3/uL Nucleated RBC % (auto) (0.0-0.2) /100WBC D-Dimer High Sensitivty NG/ML Sodium (135-145) mmol/L Potassium (3.3-5.1) mmol/L Chloride (96-108) mmol/L Carbon Dioxide (22-29) mmol/L Anion Gap (12-20) BUN (9-16) mg/dL Creatinine (0.5-1.4) mg/dL Estim Creat Clear Calc Estimated GFR POC Glucose (60-115) mg/dL Random Glucose (60-115) mg/dL Calcium (8.4-10.2) mg/dL Total Bilirubin (0.0-1.0) mg/dL AST (5-37) U/L ALT (0-40) U/L Alkaline Phosphatase (39-117) U/L Total Creatine Kinase (38-174) U/L Troponin I High Sens < 2.7 (<3.5-35.0) ng/L Total Protein (6.5-8.0) g/dL Albumin (3.5-5.0) g/dL Independent Interpretation I performed an independent interpretation of an: EKG, Plain X-Ray (normal ) and CT Scan (normal ) Interpretation: Rate: 84 Rhythm: NSR [place]: left Normal P waves. Normal YULIA. Normal QRS complex. ST T wave : inverted t wave V1 and III, no SINCERE qTC: 439 prior studies: no sig change from prior The study has been interpreted contemporaneously by me. . Radiology Impression Discussion of test interpretation with radiology: I have reviewed the radiologist's reading. External Record Review External record reviewed: Outpatient record Discharge Plan Discharge Clinical Impression: Cocaine abuse Syncope Qualifiers: Syncope type: unspecified Qualified Code(s): R55 - Syncope and collapse Neck strain Qualifiers: Encounter type: initial encounter Qualified Code(s): S16.1XXA - Strain of muscle, fascia and tendon at neck level, initial encounter Patient Disposition: Home, Self-Care Instructions: Cervical Strain (ED), Cocaine Use Disorder (ED), Cervical Sprain (ED) Additional Instructions: EKG, repeat testing for the heart, blood clot in lungs, test is negative CT scan of head and neck no trauma at this time rest and stay hydrated, avoid cocaine, return for any worsening symptom chest pain or dyspnea. Prescriptions: No Action trazodone 50 mg Tablet 50 mg PO BEDTIME MRX1 PRN (Reason: Insomnia) 30 Days Qty: 60 0RF gabapentin 400 mg Capsule 1,200 mg PO TID 30 Days Qty: 270 0RF melatonin 3 mg Tablet 6 mg PO BEDTIME PRN (Reason: Insomnia) 30 Days Qty: 60 0RF fluticasone propionate 100 mcg/actuation Blister With Device 1 inh inhalation BID 30 Days Qty: 1 0RF docusate sodium 100 mg capsule 100 mg PO BID 30 Days Qty: 60 0RF aspirin 81 mg tablet,chewable 1 tab PO DAILY 30 Days Qty: 30 0RF albuterol sulfate [Ventolin HFA] 90 mcg/actuation HFA aerosol inhaler 2 puff inhalation Q6H PRN (Reason: wheezing) 30 Days Qty: 1 0RF dextroamphetamine-amphetamine [Adderall XR] 30 mg capsule,extended release 24hr 1 cap PO DAILY 30 Days Qty: 30 0RF Print Language: Syrian
[2025-04-15 22:17] VITALS: BP 114/68; PULSE 73; RESP 14; TEMP 36.3; O2SAT 99
[2025-04-15 22:21] LABS: D Dimer High Sensitivity < 150 NG/ML
[2025-04-15 23:32] LABS: Troponin-I High Sensitivity < 2.7 ng/L (<3.5-35.0)
[2025-04-15 23:54] VITALS: BP 136/109; PULSE 85; RESP 16; TEMP 36.9; O2SAT 98
[2025-04-16 00:09] VITALS: BP 136/109; PULSE 85; RESP 16; TEMP 36.9; O2SAT 98
== END 2025-04-16 00:10 | disposition home or self-care (01) ==
PROVIDERS: Emergency Provider Emergency Medicine; PCP Nurse Practitioner Family
DX: R55 Syncope and collapse (principal); I49.8 Other specified cardiac arrhythmias; M54.2 Cervicalgia; R51.9 Headache, unspecified; Z79.899 Other long term (current) drug therapy
CPT/HCPCS: 36415; 70450; 71045; 72125; 80053; 82550; 82947; 84484; 85025; 85379; 93005; 99284; 99285

== ENCOUNTER → 2025-04-15 20:40 | Outpatient (BNV) | payer MEDICAID, SELFPAY | PROVIDERS: Emergency Provider Emergency Medicine; PCP Nurse Practitioner Family; Visit Provider Radiology Diagnostic Radiology | DX: R07.9 Chest pain, unspecified (principal) | CPT/HCPCS: 71045 ==

== ENCOUNTER → 2025-04-15 20:42 | Outpatient (BNV) | payer MEDICAID, SELFPAY | PROVIDERS: Emergency Provider Emergency Medicine; PCP Nurse Practitioner Family; Visit Provider Internal Medicine Cardiovascular Disease | DX: R94.31 Abnormal electrocardiogram [ECG] [EKG] (principal); R55 Syncope and collapse | CPT/HCPCS: 93010 ==